=== PATIENT | male | born 1960 | race Caucasian/White ===

== ENCOUNTER 2017-03-13 17:55 | Inpatient (IN) | payer BC ==
--- NOTE | 2017-03-13 18:17 | ED ---
URI HPI - General Chief Complaint: Upper Respiratory Infection Stated Complaint: congestion, ENT Time Seen by Provider: 03/13/17 18:06 Source: patient, RN notes reviewed Mode of arrival: ambulatory Limitations: no limitations - History of Present Illness Initial Comments: 56-year-old male presents emergency Department with chief complaint of cough and cold-like symptoms over the last few weeks. Patient was seen in my expressed one week ago was given a Z-[place] aberrational course of steroids. Patient states also on Flonase and Zyrtec. Patient states he does not feel that is improved. Patient has a history of COPD continues to smoke and has been doing updraft treatments at home. Patient denies any fever, chills, night sweats. Denies any chest pain or palpitations. Denies any nausea, vomiting diarrhea constipation. Denies any headache, dizziness, neck stiffness. - Related Data Home Medications Medication Instructions Recorded Confirmed Acetaminophen [Tylenol] 325 mg PO Q4H PRN 03/13/17 03/13/17 Cetirizine HCl [Zyrtec] 10 mg PO DAILY 03/13/17 03/13/17 Fluticasone Nasal [place] [Flonase 1 spray EA NOSTRIL BID 03/13/17 03/13/17 Nasal [place]] Gabapentin 600 mg PO TID 03/13/17 03/13/17 Naproxen Sodium [Aleve] 440 mg PO Q12HR PRN 03/13/17 03/13/17 amLODIPine [Norvasc] 5 mg PO DAILY 03/13/17 03/13/17 oxyCODONE HCL/ACETAMINOPHEN 1 tab PO TID 03/13/17 03/13/17 [Percocet 10-325 mg] Allergies Allergy/AdvReac Type Severity Reaction Status Date / Time No Known Allergies Allergy Verified 03/13/17 18:22 Review of Systems ROS Statement: Those systems with pertinent positive or pertinent negative responses have been documented in the HPI. ROS Other: All systems not noted in ROS Statement are negative. Past Medical History Past Medical History: Hypertension History of Any Multi-Drug Resistant Organisms: None Reported Past Surgical History: Ear Surgery Past Psychological History: No Psychological Hx Reported Smoking Status: Current every day smoker Past Alcohol Use History: Occasional Past Drug Use History: None Reported General Exam Limitations: no limitations General appearance: alert, in no apparent distress Head exam: Present: atraumatic, normocephalic, normal inspection Eye exam: Present: normal appearance, PERRL, EOMI. Absent: scleral icterus, conjunctival injection, periorbital swelling ENT exam: Present: normal exam, normal oropharynx, mucous membranes moist, TM's normal bilaterally, normal external ear exam Neck exam: Present: normal inspection, full ROM. Absent: tenderness, meningismus, lymphadenopathy Respiratory exam: Present: normal lung sounds bilaterally. Absent: respiratory distress, wheezes, rales, rhonchi, stridor, chest wall tenderness Cardiovascular Exam: Present: regular rate, normal rhythm, normal heart sounds. Absent: systolic murmur, diastolic murmur, rubs, gallop, clicks GI/Abdominal exam: Present: soft, normal bowel sounds. Absent: distended, tenderness, guarding, rebound, rigid Neurological exam: Present: alert, oriented X3, CN II-XII intact Course Vital Signs 03/13/17 18:01 Temperature 98.2 F Pulse Rate 100 Respiratory 20 Rate Blood Pressure 141/78 O2 Sat by Pulse 100 Oximetry Medical Decision Making - Lab Data Result diagrams: 03/13/17 19:30 03/13/17 19:30 Lab Results 03/13/17 03/13/17 03/13/17 Range/Units 19:30 19:30 19:30 WBC 10.4 (3.8-10.6) k/uL RBC 4.88 (4.30-5.90) m/uL Hgb 15.9 (13.0-17.5) gm/dL Hct 46.6 (39.0-53.0) % MCV 95.6 (80.0-100.0) fL MCH 32.5 (25.0-35.0) pg MCHC 34.0 (31.0-37.0) g/dL RDW 13.6 (11.5-15.5) % Plt Count 441 (150-450) k/uL Neutrophils % 67 % Lymphocytes % 20 % Monocytes % 9 % Eosinophils % 1 % Basophils % 1 % Neutrophils # 7.0 (1.3-7.7) k/uL Lymphocytes # 2.1 (1.0-4.8) k/uL Monocytes # 0.9 (0-1.0) k/uL Eosinophils # 0.1 (0-0.7) k/uL Basophils # 0.1 (0-0.2) k/uL Sodium 131 L (137-145) mmol/L Potassium 4.5 (3.5-5.1) mmol/L Chloride 97 L (98-107) mmol/L Carbon Dioxide 23 (22-30) mmol/L Anion Gap 11 mmol/L BUN 11 (9-20) mg/dL Creatinine 0.80 (0.66-1.25) mg/dL Est GFR (MDRD) Af Amer >60 (>60 ml/min/1.73 sqM) Est GFR (MDRD) Non-Af >60 (>60 ml/min/1.73 sqM) Glucose 95 (74-99) mg/dL Calcium 9.6 (8.4-10.2) mg/dL Troponin I <0.012 (0.000-0.034) ng/mL 03/13/17 20:13 EKG performed at 19:42 sinus rhythm with short PA rate of 79 PA interval 110 QRS duration 82 QT/QTC 374/428 Disposition Clinical Impression: Cavitary pneumonia, Pulmonary nodule, Failure of outpatient treatment Disposition: HOME SELF-CARE Condition: Fair Referrals: Nilesh Lee MD [Primary Care Provider] - 1-2 days
--- NOTE | 2017-03-13 18:48 | XR ---
EXAMINATION TYPE: XR chest 2V DATE OF EXAM: 03/13/2017 COMPARISON: NONE HISTORY: Cough and congestion TECHNIQUE: Frontal and lateral views of the chest are obtained. FINDINGS: Heart and mediastinum are normal. There is a 2 cm irregular infiltrate in the left upper l obe. There is a faint 8 mm nodular density in the right upper lobe. There is no pleural effusion. Bon y thorax is intact. IMPRESSION: There is a 2 cm irregular infiltrate in the posterior segment of the left upper lobe. Ri ght upper lobe nodule. Comparison with old exams would be helpful. Normal heart.
[2017-03-13] MEDS ORDERED: RX INFO: IV CONTRAST WAS GIVEN 1 EACH MISC MISCELLANE PRN (18:51)
[2017-03-13] MEDS ORDERED: SODIUM CHLORIDE 0.9% 500 ML IV ONE (18:52)
[2017-03-13 19:53] LABS: Basophils # (A) 0.1 k/uL (0-0.2); Basophils % (A) 1 %; CH 33.6; CHCM 35.3; Eosinophils # (A) 0.1 k/uL (0-0.7); Eosinophils % (A) 1 %; HCT 46.6 % (39.0-53.0); HDW 2.55; HGB 15.9 gm/dL (13.0-17.5); Luc # (Auto) 0.26; Luc % (Auto) 3; Lymphocytes # (A) 2.1 k/uL (1.0-4.8); Lymphocytes % (A) 20 %; MCH 32.5 pg (25.0-35.0); MCV 95.6 fL (80.0-100.0); Mean Platelet Volume 6.6; Monocytes # (A) 0.9 k/uL (0-1.0); Monocytes % (A) 9 %; Neutrophils % (A) 67 %; RBC 4.88 m/uL (4.30-5.90); RDW 13.6 % (11.5-15.5); WBC 10.4 k/uL (3.8-10.6); WBC (Perox) 9.85
[2017-03-13 20:04] LABS: Anion Gap 11 mmol/L; Blood Urea Nitrogen 11 mg/dL (9-20); Calcium 9.6 mg/dL (8.4-10.2); Carbon Dioxide 23 mmol/L (22-30); Chloride 97 mmol/L (98-107); Glucose 95 mg/dL (74-99); Non-African American GFR(MDRD) >60 (>60 ml/min/1.73 sqM); Potassium 4.5 mmol/L (3.5-5.1); Sodium 131 mmol/L (137-145)
--- NOTE | 2017-03-13 20:19 | CT ---
EXAMINATION TYPE: CT chest angio for PE DATE OF EXAM: 03/13/2017 COMPARISON: NONE HISTORY: Productive cough and chest congestion x [address] DLP: 176.30 mGycm Automated exposure control for dose reduction was used. CONTRAST: CT Chest for pulmonary embolism performed with with IV Contrast, patient injected with 82 mL of Omnip aque 350. There are 3-D post processed images. FINDINGS: There is a 2 cm cavitating infiltrate in the left upper lobe posteriorly. There is a 1 cm nodular sof t tissue density in the right upper lobe. There is mild pulmonary hyperinflation. There is no pleural effusion. Heart size is normal. There are no hilar masses. Ascending aorta measures 3.7 cm. There is no evidenc e dissection. There are no filling defects in the pulmonary arteries. There is no mediastinal adenopa thy. There are spondylotic changes in the thoracic spine. Thoracic aorta is atheromatous.. IMPRESSION: No evidence of pulmonary embolism. Mild ectasia of the ascending aorta that measures 3.7 cm. No evide nce of dissection. Left upper lobe cavitating infiltrate. Right upper lobe nodule. These findings could relate to inflam matory disease. The possibility of necrotic tumor cannot be excluded. COPD.
[2017-03-13] MEDS ORDERED: LEVOFLOXACIN 750MG-D5W PMX 750 MG in DEXTROSE/WATER 1 150ML.BAG IVPB STA (20:30)
[2017-03-13] MEDS ORDERED: PIPERACILLIN-TAZOBACTAM 3.375 GM in DEXTROSE/WATER 1 50ML.BAG IVPB STA (20:32)
[2017-03-13] MEDS ORDERED: PNEUMONIA PROTOCOL UTILIZED 1 EACH MISC PO PRN (20:32)
[2017-03-13 22:33] VITALS: BMI 18.1
[2017-03-13] MEDS: GABAPENTIN 300 MG CAP PO SCH (22:49)
[2017-03-13] MEDS: oxyCODONE-APAP 10-325MG 1 EACH TAB PO SCH (22:49)
[2017-03-13] MEDS: PIPERACILLIN-TAZOBACTAM 3.375 GM in DEXTROSE/WATER 1 50ML.BAG IVPB SCH (22:50)
--- NOTE | 2017-03-14 08:11 | XR ---
EXAMINATION TYPE: XR chest 2V DATE OF EXAM: 03/14/2017 COMPARISON: 03/13/2017, CTA 03/13/2017 INDICATION: Pneumonia TECHNIQUE: Frontal and lateral views of the chest are obtained. FINDINGS: The heart size is normal. The pulmonary vasculature is normal. There is a 1.4 cm nodule left upper lobe. This appears more focal in prior. There is a 0.8 cm nodule in the right upper lobe. Follow-up is recommended. These areas are evident on the CTA chest 7 IMPRESSION: 1. Upper lobe nodules.
[2017-03-14] MEDS ORDERED: ACETAMINOPHEN TAB 325 MG TAB PO PRN (08:36)
[2017-03-14] MEDS ORDERED: LORATADINE 10 MG TAB PO SCH (09:00)
[2017-03-14] MEDS: oxyCODONE-APAP 10-325MG 1 EACH TAB PO SCH ×3 (09:07→21:50)
[2017-03-14] MEDS: amLODIPine 5 MG TAB PO SCH (09:08)
[2017-03-14] MEDS: NICOTINE 21MG/24HR PATCH TRANSDERM SCH (09:08)
[2017-03-14] MEDS: GABAPENTIN 300 MG CAP PO SCH ×3 (09:08→21:51)
[2017-03-14] MEDS: ENOXAPARIN 40 MG/0.4 ML SYRINGE SQ SCH (09:08)
[2017-03-14] MEDS: FLUTICASONE 50MCG/SPRAY NASAL 16GM EA NOSTRIL SCH ×2 (12:10→20:27)
[2017-03-14] MEDS: PIPERACILLIN-TAZOBACTAM 3.375 GM in DEXTROSE/WATER 1 50ML.BAG IVPB SCH ×2 (16:10→23:42)
--- NOTE | 2017-03-14 17:21 | P.HPIM ---
History of Present Illness H&P Date: 03/14/17 Chief Complaint: Short of breath, cough History of presenting complaint: This is a pleasant 56-year-old patient of Dr. figueroa. Has a known history of COPD. Continue to smoke. Does take Neurontin for chronic shoulder and lower back pain for this problems. Patient's been having sinus drainage, tired and rundown, cough, sputum production, short of breath and wheezing rundown going on for some time. Cannot breathe feeling tired computed unknown. Patient initially went to [facility] then came down to the ER. Appetite is gone down. 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 EYES: Pupils equal. Conjunctiva normal. HEENT: External appearance of nose and ears normal, oral cavity grossly normal. NECK: JVD not raised; masses not palpable. HEART: First and second heart sounds are normal; no edema. LUNGS: Respiratory rate increased, decreased breath sounds prolonged expiration and wheezing,. ABDOMEN: Soft, nontender, liver spleen not palpable, no masses palpable. LYMPHATICS: No lymph nodes palpable in the axilla and neck. PSYCH: Alert and oriented x3; mood and affect anxious appearingl. NEUROLOGICAL: Cranial nerves grossly intact; no facial asymmetry, power and sensation grossly intact. Investigations: White count 10.4, hemoglobin 15.9, sodium 131, potassium 4.5, BUN 11, creatinine 0.8 CT chest-left upper lobe cavitating infiltrate, right upper lobe nodule Assessment: -Left upper lobe cavitary lesion strongly suspicious for malignancy, of course, pneumonia remains in the differential. On April completed antibiotic course to see if there is any change. Nevertheless patient will require a bronchoscopy. -Acute COPD exacerbation and a current smoker -Chronic nicotine dependence. In a smoker -Hyponatremia, suspect hypoosmolar -Chronic shoulder and lower back pain from herniated disc Plan: Patient to be started on nebulized bronchodilators, nebulized steroids, and for sinuses we'll put the patient on Claritin-D. Dr. Melgoza was consulted. Patient will probably need a bronchoscopy down the road. We'll add a nicotine patch. Past Medical History Past Medical History: Hypertension History of Any Multi-Drug Resistant Organisms: None Reported Past Surgical History: Ear Surgery Past Psychological History: No Psychological Hx Reported Smoking Status: Current every day smoker Past Alcohol Use History: Occasional Past Drug Use History: None Reported Medications and Allergies Home Medications Medication Instructions Recorded Confirmed Type Acetaminophen [Tylenol] 325 mg PO Q4H PRN 03/13/17 03/13/17 History Cetirizine HCl [Zyrtec] 10 mg PO DAILY 03/13/17 03/13/17 History Fluticasone Nasal [place] [Flonase 1 spray EA NOSTRIL BID 03/13/17 03/13/17 History Nasal [place]] Gabapentin 600 mg PO TID 03/13/17 03/13/17 History Naproxen Sodium [Aleve] 440 mg PO Q12HR PRN 03/13/17 03/13/17 History amLODIPine [Norvasc] 5 mg PO DAILY 03/13/17 03/13/17 History oxyCODONE HCL/ACETAMINOPHEN 1 tab PO TID 03/13/17 03/13/17 History [Percocet 10-325 mg] Allergies Allergy/AdvReac Type Severity Reaction Status Date / Time No Known Allergies Allergy Verified 03/13/17 18:22 Results CBC & Chem 7: 03/13/17 19:30 03/13/17 19:30
[2017-03-14] MEDS: IPRATROPIUM-ALBUTEROL 3 ML NEB INHALATION SCH ×2 (17:43→20:30)
--- NOTE | 2017-03-14 19:27 | P.CNPUL ---
History of Present Illness Consult date: 03/14/17 Reason for consult: dyspnea, abnormal CXR/CT History of present illness: A 56-year-old male patient, a chronic smoker with known history of COPD whereas been followed up by Dr. srivastava on an outpatient basis. This patient has been having difficulty breathing for the past week or so. He had cough and congestion and increased dyspnea wheezing. He was feeling rundown. He was having cold chills and there is no documented fevers. No hemoptysis. No pleurisy. No previous exposure to TB. No personal history of positive PPD. No 70 connected tissue disease. No history of hematuria. No history of any staphylococcal infections. No history of any gram-negative infections. The patient drinks alcohol around 6 beers on a daily basis and he smokes one pack of cigarettes a day. He has been utilizing certain inhalers that was given to him by his primary care physician. He decided to come into the hospital for the above-mentioned complaints and he was given a CT angios the chest and it showed a 2 cm cavitating infiltrate in left upper lobe and another 1 cm nodular soft tissue density in the right upper lobe. There was also evidence of mild pulmonary hypertension no mediastinal lymphadenopathy. Review of Systems Constitutional: Reports fatigue, Reports weakness Eyes: denies blurred vision, denies bulging eye, denies decreased vision Ears: deny: decreased hearing, ear discharge, earache Ears, nose, mouth and throat: Denies headache, Denies sore throat Cardiovascular: Reports decreased exercise tolerance, Reports dyspnea on exertion, Reports shortness of breath Respiratory: Reports cough, Reports dyspnea Gastrointestinal: Denies abdominal pain, Denies diarrhea, Denies nausea, Denies vomiting Musculoskeletal: Denies myalgias Musculoskeletal: absent: ankle pain, ankle stiffness, ankle swelling Integumentary: Denies pruritus, Denies rash Neurological: Denies numbness, Denies weakness Psychiatric: Denies anxiety, Denies depression Endocrine: Denies fatigue, Denies weight change Past Medical History Past Medical History: Hypertension Additional Past Medical History / Comment(s): COPD, degenerative arthritis, alcoholism History of Any Multi-Drug Resistant Organisms: None Reported Past Surgical History: Ear Surgery Past Psychological History: No Psychological Hx Reported Smoking Status: Current every day smoker Past Alcohol Use History: Occasional Past Drug Use History: None Reported Medications and Allergies Home Medications Medication Instructions Recorded Confirmed Type Acetaminophen [Tylenol] 325 mg PO Q4H PRN 08/31/17 08/31/17 History Cetirizine HCl [Zyrtec] 10 mg PO DAILY 03/13/17 03/13/17 History Fluticasone Nasal [place] [Flonase 1 spray EA NOSTRIL BID 03/13/17 03/13/17 History Nasal [place]] Gabapentin 600 mg PO TID 03/13/17 03/13/17 History Naproxen Sodium [Aleve] 440 mg PO Q12HR PRN 03/13/17 03/13/17 History amLODIPine [Norvasc] 5 mg PO DAILY 03/13/17 03/13/17 History oxyCODONE HCL/ACETAMINOPHEN 1 tab PO TID 03/13/17 03/13/17 History [Percocet 10-325 mg] Allergies Allergy/AdvReac Type Severity Reaction Status Date / Time No Known Allergies Allergy Verified 03/13/17 18:22 Physical Exam Vitals: Vital Signs Temp Pulse Pulse Resp BP BP Pulse Ox 03/14/17 15:00 98.2 F 97 18 111/72 96 03/14/17 07:00 98.1 F 83 16 136/78 98 03/13/17 22:10 97.7 F 90 16 140/82 100 03/13/17 21:49 98 F 85 16 156/90 100 03/13/17 21:03 98.7 F 82 16 156/86 100 Intake and Output 03/14/17 03/14/17 03/14/17 06:59 14:59 22:59 Other: Voiding Method Toilet Toilet # Voids 2 3 # Bowel Movements 1 Weight 54 kg Patient Weight 03/15/17 06:59 Weight 54 kg The patient appeared well nourished and normally developed. Vital signs as documented. Head exam is unremarkable. No scleral icterus or corneal arcus noted. Neck is without jugular venous distension, thyromegaly, or carotid bruits. Carotid upstrokes are brisk bilaterally. Lungs are diminished breath sounds bilaterally along with some few scattered external wheeze. Cardiac exam reveals the PMI to be normally sized and situated. Rhythm is regular. First and second heart sounds normal. No murmurs, rubs or gallops. Abdominal exam reveals normal bowel sounds, no masses, no organomegaly and no aortic enlargement. Extremities are nonedematous and both femoral and pedal pulses are normal. Results - Laboratory Findings CBC and BMP: 03/13/17 19:30 03/13/17 19:30 Abnormal lab findings: Abnormal Labs 03/13/17 19:30 Sodium 131 L Chloride 97 L - Diagnostic Findings Chest x-ray: image reviewed CT scan - chest: image reviewed Assessment and Plan Plan: Assessment 1 acute COPD exacerbation with secondary shortness of breath 2 abnormal CAT scan of the chest with cavitating left upper lobe pulmonary infiltrate and another nodular density in the right upper lobe. Rule out pneumonia, possibly gram-negative pneumonia and the patient was been drinking alcohol excessively, possibly alcoholic. No history of immunosuppression. Staphylococcal pneumonia is possible although less likely. Less likely possibilities of fungal, connected disease related or mycobacterial infections. Malignancy cannot be completely ruled out especially squamous cell carcinoma that can typically cavitate 3 smoker 4 alcohol drinker possibly alcoholic Plan Continue current antibiotic coverage. The patient be given Levaquin as an empiric antibiotic coverage in combination with Zosyn. Sputum Gram stain and culture. DuoNeb nebulized treatments around the clock. IV Solu-Medrol. Anticipate improvement and COPD exacerbation. Outpatient follow-up on the abnormal CAT scan findings. Very crucial for this patient to have a follow-up CAT scan of the chest into the 3 months time. Any persistent abnormalities with require biopsy to rule out malignancy. He was made aware of this. We'll continue to follow. Smoking cessation counseling was done.
[2017-03-14] MEDS: LORATADINE-PSEUDOEPH 5-120 MG 1 EACH TAB.ER.12H PO SCH (20:27)
[2017-03-14] MEDS: methylPREDNISolone SOD SUCCI 125 MG/2 ML VIAL IV SCH ×2 (20:29→23:37)
[2017-03-14] MEDS: BUDESONIDE 1 MG/2 ML NEBU INHALATION SCH (20:30)
[2017-03-14] MEDS ORDERED: LEVOFLOXACIN 750MG-D5W PMX 750 MG in DEXTROSE/WATER 1 150ML.BAG IVPB SCH (21:00)
[2017-03-15] MEDS: methylPREDNISolone SOD SUCCI 125 MG/2 ML VIAL IV SCH ×3 (06:21→18:26)
[2017-03-15] MEDS: BUDESONIDE 1 MG/2 ML NEBU INHALATION SCH ×2 (07:22→19:40)
[2017-03-15] MEDS: IPRATROPIUM-ALBUTEROL 3 ML NEB INHALATION SCH ×4 (07:22→19:40)
[2017-03-15] MEDS: PIPERACILLIN-TAZOBACTAM 3.375 GM in DEXTROSE/WATER 1 50ML.BAG IVPB SCH ×2 (07:58→15:49)
[2017-03-15] MEDS: oxyCODONE-APAP 10-325MG 1 EACH TAB PO SCH (07:58)
[2017-03-15] MEDS: GABAPENTIN 300 MG CAP PO SCH ×3 (07:59→21:50)
[2017-03-15] MEDS: ENOXAPARIN 40 MG/0.4 ML SYRINGE SQ SCH (07:59)
[2017-03-15] MEDS: LORATADINE-PSEUDOEPH 5-120 MG 1 EACH TAB.ER.12H PO SCH ×2 (07:59→21:50)
[2017-03-15] MEDS: amLODIPine 5 MG TAB PO SCH (07:59)
[2017-03-15] MEDS: NICOTINE 21MG/24HR PATCH TRANSDERM SCH (07:59)
[2017-03-15] MEDS: FLUTICASONE 50MCG/SPRAY NASAL 16GM EA NOSTRIL SCH ×2 (08:00→21:49)
--- NOTE | 2017-03-15 13:19 | P.PN ---
Subjective A 56-year-old male patient, a chronic smoker with known history of COPD whereas been followed up by Dr. srivastava on an outpatient basis. This patient has been having difficulty breathing for the past week or so. He had cough and congestion and increased dyspnea wheezing. He was feeling rundown. He was having cold chills and there is no documented fevers. No hemoptysis. No pleurisy. No previous exposure to TB. No personal history of positive PPD. No 70 connected tissue disease. No history of hematuria. No history of any staphylococcal infections. No history of any gram-negative infections. The patient drinks alcohol around 6 beers on a daily basis and he smokes one pack of cigarettes a day. He has been utilizing certain inhalers that was given to him by his primary care physician. He decided to come into the hospital for the above-mentioned complaints and he was given a CT angios the chest and it showed a 2 cm cavitating infiltrate in left upper lobe and another 1 cm nodular soft tissue density in the right upper lobe. There was also evidence of mild pulmonary hypertension no mediastinal lymphadenopathy. The patient is seen again today 03/15/2017 in follow-up on the regular medical floor. He is awake and alert in no acute distress. He is breathing slightly better today as compared to yesterday but not quite back to his baseline. He is still dyspneic on minimal exertion. Still wheezing. He is maintaining good O2 saturations in the upper 90s on room air. He's been afebrile. Sputum and blood cultures are pending. He is covered with Zosyn and Levaquin. Objective - Vital Signs Vital signs: Vital Signs Temp 96.9 F L 03/15/17 07:00 Pulse 92 03/15/17 11:43 Resp 18 03/15/17 08:00 BP 126/81 03/15/17 07:00 Pulse Ox 98 03/15/17 07:00 Intake & Output 03/14/17 03/15/17 03/15/17 18:59 06:59 18:59 Weight 54 kg Other: Voiding Method Toilet Toilet # Voids 3 2 1 # Bowel Movements 1 - Exam The patient appeared well nourished and normally developed. Vital signs as documented. Head exam is unremarkable. No scleral icterus or corneal arcus noted. Neck is without jugular venous distension, thyromegaly, or carotid bruits. Carotid upstrokes are brisk bilaterally. Lungs are diminished breath sounds bilaterally along with some few scattered external wheeze. Cardiac exam reveals the PMI to be normally sized and situated. Rhythm is regular. First and second heart sounds normal. No murmurs, rubs or gallops. Abdominal exam reveals normal bowel sounds, no masses, no organomegaly and no aortic enlargement. Extremities are nonedematous and both femoral and pedal pulses are normal. - Labs CBC & Chem 7: 03/13/17 19:30 03/13/17 19:30 Labs: Abnormal Lab Results - Last 24 Hours (Table) 03/15/17 Range/Units 07:20 Osmolality 277 L (280-301) mosm/kg Microbiology - Last 24 Hours (Table) 03/14/17 12:20 Gram Stain - Preliminary Sputum 03/13/17 21:02 Blood Culture - Preliminary Blood No Growth after 24 hours Assessment and Plan Plan: Assessment 1 acute COPD exacerbation with secondary shortness of breath 2 abnormal CAT scan of the chest with cavitating left upper lobe pulmonary infiltrate and another nodular density in the right upper lobe. Rule out pneumonia, possibly gram-negative pneumonia and the patient was been drinking alcohol excessively, possibly alcoholic. No history of immunosuppression. Staphylococcal pneumonia is possible although less likely. Less likely possibilities of fungal, connected disease related or mycobacterial infections. Malignancy cannot be completely ruled out especially squamous cell carcinoma that can typically cavitate 3 smoker 4 alcohol drinker possibly alcoholic Plan: The patient was seen and evaluated by Dr. Melgoza. We'll continue with his current medications including antibiotics in the form of Zosyn and Levaquin. Continue with bronchodilators and IV Solu-Medrol. He is educated regarding the importance of complete smoking cessation. He is again educated regarding the importance of follow-up computed tomography scan in 3 months time in the outpatient setting. Hopefully we are just dealing with pneumonia versus malignancy. The patient verbalizes understanding. We'll continue to follow.
[2017-03-15] MEDS: oxyCODONE-APAP 10-325MG 1 EACH TAB PO PRN ×2 (15:48→21:50)
--- NOTE | 2017-03-15 16:20 | P.PN ---
<Sarah Huston - Last Filed: 03/15/17 16:21> Progress Note - Text DATE OF SERVICE: 03/15/2017 PRESENTING COMPLAINT: Short of breath cough HISTORY OF PRESENT ILLNESS: This is a 56-year-old male has a history of COPD and smoking. Sinus drainage feeling tired and rundown cough sputum production and short of breath with wheezing for quite a while. Diagnostics revealed left upper lobe cavitary lesion strongly suspicious for malignancy along with pneumonia may need bronchoscopy. INTERVAL HISTORY: 03/15/2017: Patient sitting up on the bedside, no acute distress noted. Appears comfortable no trouble breathing, has a strong productive cough. Feeling Better than he did when he was admitted. Breathing is easier appetites improving eating 50-75% of his meals, moving his bowels. Ambulatory within the room and [address]. Pulmonology is seeing the patient. REVIEW OF SYSTEMS: Done for constitutional ,cardiovascular, GI, pulmonary with relevant findings as above. CURRENT MEDICATIONS DuoNeb's, Norvasc, Pulmicort, Neurontin, Levaquin, loratidine, Solu-Medrol, nicotine patch, Percocet, Zosyn. PHYSICAL EXAM VITAL SIGNS: Temperature 97.0 pulse 94, respiratory rate 16, blood pressure 116/72 oxygen saturation a 6% on room air. GENERAL APPEARANCE: . Sitting in bed, somewhat anxious appearing. EYES: Pupils equal. Conjunctiva normal. NECK: JVD not raised. Mass not palpable. RESPIRATORY: Respiratory effort increased. Decreased breath sounds prolonged expiration and wheezing. CARDIOVASCULAR: First and second sounds normal. No edema. ABDOMEN: Soft. Liver and spleen not palpable. No tenderness. No mass palpable. PSYCHIATRY: Alert and oriented x3. Mood and affect somewhat anxious appearing. INVESTIGATIONS: None new ASSESSMENT: -Left upper lobe cavitary lesion strongly suspicious for malignancy, of course pneumonia remains in the differential. In the February completed antibiotics to see if there is any change, nevertheless patient will require bronchoscopy. -Acute COPD exacerbation in a current smoker. -Chronic nicotine dependence. In a smoker -Hyponatremia, suspect hypoosmolar -Chronic shoulder and low back pain from herniated disc. PLAN: Started on IV antibiotics of Zosyn and Levaquin, IV steroids, nebulized bronchodilators, nebulized steroids will be continued. Patient educated on the necessity of smoking cessation as well as can continue to follow up on his computed tomography scan in 3 months in the outpatient setting. Discharge planning in the next 24-48 hours. We will continue to follow closely. Plan of care discussed with the patient at the bedside he is in agreement. 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 Black <Drew Black - Last Filed: 03/15/17 21:53> Progress Note - Text Attending note. Date of service-03/15/2017 This patient was seen and examined by me . Discussed the patient with my nurse practitioner Ms. Huston. Admitted for COPD exacerbation and pneumonia with suspicion of underlying malignancy bruising of the shade better. Eating better. Less wheezing. On examination: Lungs-decreased breath sounds, prolonged expiration, cardio vascular first seconds are normal Investigations: Serum osmolarity 277 Assessment and plan: Acute COPD exacerbation/pneumonia/cavitary lesion suspicious for malignancy/ hyponatremia. Cut back on Solu-Medrol. continued antibiotics include Levaquin and Zosyn. care was discussed with the patient. patient probably will need outpatient bronchoscopy
[2017-03-15] MEDS ORDERED: LEVOFLOXACIN 750 MG TAB PO SCH (21:00)
[2017-03-16] MEDS: PIPERACILLIN-TAZOBACTAM 3.375 GM in DEXTROSE/WATER 1 50ML.BAG IVPB SCH ×2 (00:54→08:27)
[2017-03-16] MEDS: methylPREDNISolone SOD SUCCI 40 MG/ML 1 ML VIAL IV SCH ×2 (00:55→08:27)
[2017-03-16] MEDS: oxyCODONE-APAP 10-325MG 1 EACH TAB PO PRN ×2 (06:28→12:12)
[2017-03-16] MEDS: BUDESONIDE 1 MG/2 ML NEBU INHALATION SCH (07:24)
[2017-03-16] MEDS: IPRATROPIUM-ALBUTEROL 3 ML NEB INHALATION SCH ×2 (07:24→11:05)
[2017-03-16 07:36] VITALS: BP 125/69; RESP 18; TEMP 96.8
[2017-03-16 08:09] LABS: Basophils % (A) 0 %; CH 33.3; CHCM 33.9; Eosinophils % (A) 0 %; HCT 38.9 % (39.0-53.0); HDW 2.52; Luc # (Auto) 0.08; Luc % (Auto) 1; Lymphocytes # (A) 0.7 k/uL (1.0-4.8); Lymphocytes % (A) 5 %; MCH 32.5 pg (25.0-35.0); MCV 98.5 fL (80.0-100.0); Mean Platelet Volume 7.1; Monocytes # (A) 0.6 k/uL (0-1.0); Monocytes % (A) 4 %; Neutrophils # (A) 12.6 k/uL (1.3-7.7); Neutrophils % (A) 90 %; RBC 3.95 m/uL (4.30-5.90); RDW 13.7 % (11.5-15.5); WBC (Perox) 14.91
[2017-03-16 08:10] LABS: HGB 12.8 gm/dL (13.0-17.5)
[2017-03-16] MEDS: LORATADINE-PSEUDOEPH 5-120 MG 1 EACH TAB.ER.12H PO SCH (08:26)
[2017-03-16] MEDS: ENOXAPARIN 40 MG/0.4 ML SYRINGE SQ SCH (08:27)
[2017-03-16] MEDS: GABAPENTIN 300 MG CAP PO SCH (08:27)
[2017-03-16] MEDS: FLUTICASONE 50MCG/SPRAY NASAL 16GM EA NOSTRIL SCH (08:27)
[2017-03-16] MEDS: NICOTINE 21MG/24HR PATCH TRANSDERM SCH (08:27)
[2017-03-16] MEDS: amLODIPine 5 MG TAB PO SCH (08:27)
[2017-03-16 08:38] LABS: Anion Gap 10 mmol/L; Blood Urea Nitrogen 13 mg/dL (9-20); Calcium 9.3 mg/dL (8.4-10.2); Carbon Dioxide 25 mmol/L (22-30); Chloride 101 mmol/L (98-107); Glucose 127 mg/dL (74-99); Non-African American GFR(MDRD) >60 (>60 ml/min/1.73 sqM); Potassium 4.3 mmol/L (3.5-5.1); Sodium 136 mmol/L (137-145)
[2017-03-16 11:12] VITALS: PULSE 92
--- NOTE | 2017-03-16 16:20 | P.PN ---
Subjective A 56-year-old male patient, a chronic smoker with known history of COPD whereas been followed up by Dr. srivastava on an outpatient basis. This patient has been having difficulty breathing for the past week or so. He had cough and congestion and increased dyspnea wheezing. He was feeling rundown. He was having cold chills and there is no documented fevers. No hemoptysis. No pleurisy. No previous exposure to TB. No personal history of positive PPD. No 70 connected tissue disease. No history of hematuria. No history of any staphylococcal infections. No history of any gram-negative infections. The patient drinks alcohol around 6 beers on a daily basis and he smokes one pack of cigarettes a day. He has been utilizing certain inhalers that was given to him by his primary care physician. He decided to come into the hospital for the above-mentioned complaints and he was given a CT angios the chest and it showed a 2 cm cavitating infiltrate in left upper lobe and another 1 cm nodular soft tissue density in the right upper lobe. There was also evidence of mild pulmonary hypertension no mediastinal lymphadenopathy. The patient is seen again today 03/15/2017 in follow-up on the regular medical floor. He is awake and alert in no acute distress. He is breathing slightly better today as compared to yesterday but not quite back to his baseline. He is still dyspneic on minimal exertion. Still wheezing. He is maintaining good O2 saturations in the upper 90s on room air. He's been afebrile. Sputum and blood cultures are pending. He is covered with Zosyn and Levaquin. On 03/16/2017 the patient is doing well. He has no specific complaints. He remains on antibiotics. No fever chills or night sweats. No hemoptysis or pleurisy. The plan is to discharge this patient home to be followed up on outpatient basis regarding the cavitary pulmonary infiltrates in his left upper lobe. Objective - Vital Signs Vital signs: Vital Signs Temp 96.8 F L 03/16/17 07:00 Pulse 92 03/16/17 11:12 Resp 18 03/16/17 08:00 BP 125/69 03/16/17 07:00 Pulse Ox 98 03/16/17 07:00 Intake & Output 03/15/17 03/16/17 03/16/17 18:59 06:59 18:59 Other: # Voids 2 3 1 # Bowel Movements 1 - Exam The patient appeared well nourished and normally developed. Vital signs as documented. Head exam is unremarkable. No scleral icterus or corneal arcus noted. Neck is without jugular venous distension, thyromegaly, or carotid bruits. Carotid upstrokes are brisk bilaterally. Lungs are minutes breath on lung base bilaterally along with some few scattered expiratory wheezes.. Cardiac exam reveals the PMI to be normally sized and situated. Rhythm is regular. First and second heart sounds normal. No murmurs, rubs or gallops. Abdominal exam reveals normal bowel sounds, no masses, no organomegaly and no aortic enlargement. Extremities are nonedematous and both femoral and pedal pulses are normal. - Labs CBC & Chem 7: 03/16/17 07:40 03/16/17 07:40 Labs: Abnormal Lab Results - Last 24 Hours (Table) 03/16/17 03/16/17 Range/Units 07:40 07:40 WBC 14.0 H (3.8-10.6) k/uL RBC 3.95 L (4.30-5.90) m/uL Hgb 12.8 L D (13.0-17.5) gm/dL Hct 38.9 L (39.0-53.0) % Neutrophils # 12.6 H (1.3-7.7) k/uL Lymphocytes # 0.7 L (1.0-4.8) k/uL Sodium 136 L (137-145) mmol/L Creatinine 0.63 L (0.66-1.25) mg/dL Glucose 127 H (74-99) mg/dL Microbiology - Last 24 Hours (Table) 03/14/17 12:20 Gram Stain - Final Sputum Sputum Culture - Final 03/13/17 21:02 Blood Culture - Preliminary Blood No Growth after 48 hours Assessment and Plan Plan: 1 acute COPD exacerbation with secondary shortness of breath, improved 2 abnormal CAT scan of the chest with cavitating left upper lobe pulmonary infiltrate and another nodular density in the right upper lobe. Rule out pneumonia, possibly gram-negative pneumonia and the patient was been drinking alcohol excessively, possibly alcoholic. No history of immunosuppression. Staphylococcal pneumonia is possible although less likely. Less likely possibilities of fungal, connected disease related or mycobacterial infections. Malignancy cannot be completely ruled out especially squamous cell carcinoma that can typically cavitate 3 smoker 4 alcohol drinker possibly alcoholic Plan The patient will be discharged home on oral Augmentin. Prednisone burst taper. Follow up on outpatient basis for repeat chest x-ray. Bronchoscopy if no improvement in the cavitating left upper lobe pulmonary infiltrate. Contact me back if there is any worsening. Smoking cessation counseling was done. Agree on discharge.
--- NOTE | 2017-03-16 18:43 | P.DS ---
Providers Date of admission: 03/13/17 21:16 Expected date of discharge: 03/16/17 Attending physician: Drew Black Consults: 03/13/17 21:23 Consult Physician Stat Consulting Provider: Manisha Melgoza Consult Reason/Comments: Cavitating pneumonia Do you want consulting provider notified?: Yes Primary care physician: Nilesh Lee Hospital Course: Final diagnoses: -Possible pneumonia suspected gram-negative organism manifesting as a cavitating lesion -Rule out malignancy as an outpatient may require a bronchoscopy. -Acute COPD exacerbation in a current smoker. -Chronic nicotine dependence. In a smoker -Hyponatremia, suspect hypoosmolar -Chronic shoulder and low back pain from herniated disc. Hospital course: This patient with a long-standing smoking presented with cough impression sort of breath and wheezing felt a severe pneumonia and COPD exacerbation. Computed tomography scan chest showed a cavitating pneumonia. Patient will need a bronchoscopy as an outpatient to rule out underlying malignancy. Meantime patient is improving. The time of discharge symptoms are greatly improved. Up and about in the hallway. He came to go home. Seen by Dr. Melgoza from pulmonary okayed to be discharge. Sputum and blood cultures were negative. I discussed today with Dr. Melgoza. Also discussed with the patient. Patient counseled against smoking. Discharge planning more than 35 minutes. On examination: Lungs decreased breath sounds-prolonged expiration Patient Condition at Discharge: Fair Plan - Discharge Summary New Discharge Prescriptions: New Albuterol Inhaler [Ventolin Hfa Inhaler] 1 - 2 puff INHALATION Q6HR PRN #1 inhaler PRN Reason: Wheezing Amoxicillin/Potassium Clav [Augmentin 875-125 Tablet] 1 tab PO Q12HR #14 tab Budesonide [Pulmicort Flexhaler] 2 puff INHALATION BID #1 inhaler Ipratropium [place] [Atrovent Hfa] 2 puff INHALATION QID #1 inhaler Loratadine-Pseudoeph 5-120 mg [Claritin-D 12 Hour] 1 each PO Q12HR #14 tab Nicotine 21Mg/24Hr Patch [Habitrol] 1 patch TRANSDERM DAILY #14 patch predniSONE 10 mg PO DAILY #30 tab Continue Fluticasone Nasal [place] [Flonase Nasal [place]] 1 spray EA NOSTRIL BID Acetaminophen [Tylenol] 325 mg PO Q4H PRN PRN Reason: Pain oxyCODONE HCL/ACETAMINOPHEN [Percocet 10-325 mg] 1 tab PO TID amLODIPine [Norvasc] 5 mg PO DAILY Naproxen Sodium [Aleve] 440 mg PO Q12HR PRN PRN Reason: Pain Gabapentin 600 mg PO TID Discontinued Cetirizine HCl [Zyrtec] 10 mg PO DAILY Discharge Medication List Acetaminophen [Tylenol] 325 mg PO Q4H PRN 03/13/17 [History] Fluticasone Nasal [place] [Flonase Nasal [place]] 1 spray EA NOSTRIL BID 03/13/17 [ History] Gabapentin 600 mg PO TID 03/13/17 [History] Naproxen Sodium [Aleve] 440 mg PO Q12HR PRN 03/13/17 [History] amLODIPine [Norvasc] 5 mg PO DAILY 03/13/17 [History] oxyCODONE HCL/ACETAMINOPHEN [Percocet 10-325 mg] 1 tab PO TID 03/13/17 [History] Albuterol Inhaler [Ventolin Hfa Inhaler] 1 - 2 puff INHALATION Q6HR PRN #1 inhaler 03/16/17 [Rx] Amoxicillin/Potassium Clav [Augmentin 875-125 Tablet] 1 tab PO Q12HR #14 tab 09/27 [Rx] Budesonide [Pulmicort Flexhaler] 2 puff INHALATION BID #1 inhaler 03/16/17 [Rx] Ipratropium [place] [Atrovent Hfa] 2 puff INHALATION QID #1 inhaler 03/16/17 [Rx ] Loratadine-Pseudoeph 5-120 mg [Claritin-D 12 Hour] 1 each PO Q12HR #14 tab 03/16 [Rx] Nicotine 21Mg/24Hr Patch [Habitrol] 1 patch TRANSDERM DAILY #14 patch 03/16/17 [ Rx] predniSONE 10 mg PO DAILY #30 tab 03/16/17 [Rx] Follow up Appointment(s)/Referral(s): Nilesh Lee MD [Primary Care Provider] - 3 Days Manisha Melgoza MD [STAFF PHYSICIAN] - 3 Days (please call office friday to make a follow up appointment with Dr. Melgoza) Patient Instructions/Handouts: How to Stop Smoking (DC), Cigarette Smoking and Your Health (GEN), Pulmonary Nodules (DC), Pneumonia (DC) Discharge/Stand Alone Forms: Work/Release Restrictions Form Discharge Disposition: HOME SELF-CARE
== END 2017-03-16 14:38 | disposition home or self-care (01) | DRG 190 ==
LOC: EC 17:55 → 4MS4W 21:16
PROVIDERS: ADMIT Hospitalist; ATTEND Hospitalist
DX: J44.0 Chronic obstructive pulmonary disease with (acute) lower respiratory infection (principal); J15.6 Pneumonia due to other Gram-negative bacteria; I27.2 Other secondary pulmonary hypertension; E87.1 Hypo-osmolality and hyponatremia; J44.1 Chronic obstructive pulmonary disease with (acute) exacerbation; I10 Essential (primary) hypertension; F10.10 Alcohol abuse, uncomplicated; R91.1 Solitary pulmonary nodule; F17.210 Nicotine dependence, cigarettes, uncomplicated; M51.36 Other intervertebral disc degeneration, lumbar region; M25.519 Pain in unspecified shoulder; Z79.899 Other long term (current) drug therapy; Z79.891 Long term (current) use of opiate analgesic; Z71.6 Tobacco abuse counseling
CPT/HCPCS: 36415; 71020; 71275; 80048; 83930; 84484; 85025; 87040; 87070; 87205; 93005; 94640; 94760; 96365; 99285

== ENCOUNTER → 2017-04-30 | Outpatient (CLI) | payer BC ==
--- NOTE | 2017-04-30 16:09 | CT ---
EXAMINATION TYPE: CT chest w con DATE OF EXAM: 04/30/2017 COMPARISON: 03/13/2017 HISTORY: lung nodules CT DLP: 408 mGycm, Automated exposure control for dose reduction was used. CONTRAST: Performed injected with 100 mL of Omnipaque 300. TECHNIQUE: Axial images were obtained at 5 mm thick sections. Reconstructed images are reviewed on [employer] computer in the coronal plane. FINDINGS: Portion of the thyroid visualized is normal. There is a 0.8 cm nodule in the right apex. Series 4 image 10. There is a mass within the posterior left upper lung field with some spiculation. This measures 2.1 x 1.7 cm. Series 4 image 13. A tiny subtle density is in the periphery of the right midlung. Series 4 image 20. No enlarged mediastinal or hilar adenopathy is evident. The ascending aorta diameter at the level o f the main pulmonary artery is 3.9 cm. The main pulmonary artery diameter at the bifurcation is 2.5 cm. Coronary artery calcifications present. Note is made of some vascular calcification within the ao rta. Limited CT sections are obtained through the upper abdomen. Abdomen is essentially unremarkable. IMPRESSIONS: 1. 2.1 x 1.7 cm left upper lobe spiculated cavitary lesion posterior lung. 2. 0.8 cm nodule right apex. 3. Very subtle density within the periphery of the right midlung. 4. Recommend PET/CT for additional workup of suspected neoplasm.
== END | disposition home or self-care (01) ==
LOC: RADCTMAIN 15:18
PROVIDERS: ATTEND Internal Medicine Critical Care Medicine
DX: R91.1 Solitary pulmonary nodule (principal); J98.4 Other disorders of lung
CPT/HCPCS: 71260; Q9967

== ENCOUNTER → 2017-05-31 | Outpatient (CLI) | payer BC ==
--- NOTE | 2017-06-01 09:40 | PE ---
EXAMINATION TYPE: PET CT fusion skull to thigh DATE OF EXAM: 05/31/2017 COMPARISON: 04/30/2017 HISTORY: Evaluation of pulmonary nodules. TECHNIQUE: Following the intravenous administration of 15.18 mCi of F-18 FDG, whole body images are performed from the skull base to the midthigh. Images are reviewed on the computer in the coronal, a xial, and sagittal planes. Reconstructed rotating images are created on independent workstation and reviewed on the computer. A localization and attenuation correction CT is performed in conjunction with the PET scan. SCAN: First FINDINGS: SKULL BASE AND NECK: Right sublingual hypermetabolic activity may be physiologic with a maximum SUV measuring up to 2.4 cm. Direct visualization is recommended. No other hypermetabolic activity within the skull base and neck. CHEST, MEDIASTINUM, AND HILAR REGION: The previously seen left upper lobe cavitary lesion that measur ed approximately 2 cm on the exam of 03/13/2017 and measured 2.1 x 1.7 cm on the exam of 04/30/2017 ibrahim s continued to minimally decreased in size and become more consolidated centrally with only a single focus of internal air now measuring up to 1.8 x 1.8 cm. There is some retraction on the interlobar fi ssure and scarring radiating to the lateral left upper lobe. This does not demonstrate hypermetabolic activity and has the same activity is mediastinal background with a maximum SUV of 1.6. The stable r ight upper lobe pulmonary nodule measuring 6 mm has a maximum SUV of 0.5 and may be below sensitivity of PET/CT. Punctate 2 mm pulmonary nodule within the right upper lobe on series 3 image 86 is also n ot hypermetabolic. There is no evidence of mediastinal adenopathy. The largest precarinal lymph node measures 7 mm in sh ort axis and does not demonstrate hypermetabolic activity with an SUV of 1.3. ABDOMEN AND PELVIS: Background abdominal uptake within the liver measures up to 2.3. Right pelvis sub cutaneous lesion is not hypermetabolic with a maximum SUV of 0.6. OSSEOUS STRUCTURES: Focal uptake at the spinous processes of L2-L3 related to arthropathy and degener ative change with a maximum SUV of 1. C5 at L2 and 1.8 at L3 and without osseous erosions. OTHER CT: There is moderate background centrilobular emphysematous change. Heart is unenlarged. There are mild to moderate three-vessel coronary artery calcifications. No supraclavicular or axillary corinne nopathy. Moderate atheromatous changes of the thoracic aorta. The unenhanced liver, spleen, adrenal g lands, kidneys, gallbladder, and pancreas are of unremarkable morphology. No evidence of bowel obstru ction. Prostate gland is heterogenous containing central gland calcifications. Right subcutaneous flu id attenuated cystic structure measures 3.1 cm on series 3 image 223 and may relate to a subcutaneous cyst. Again this is not hypermetabolic area in no gross evidence of adenopathy within the abdomen or pelvis given the limitation of lack of intravenous contrast. Multilevel degenerative changes of the thoracolumbar and lumbosacral spine are moderate. IMPRESSION: 1. Left upper lobe nonhypermetabolic cavitary mass is minimally more confluent than the priors and sl ightly decreased in size. Therefore this is favored to represent resolving infectious etiology. Howev er given the patient is high risk with background of moderate emphysema and a right apical nodule zena veillance and/or percutaneous biopsy are recommended. 2. No hypermetabolic activity within the abdomen or pelvis. No suspicious osseous lesions. No evidenc e of adenopathy within the chest, abdomen, or pelvis. 3. Right sublingual hypermetabolic activity may be physiologic although correlation with direct visua lization is recommended.
== END | disposition home or self-care (01) ==
LOC: RADPETMAIN 07:24
PROVIDERS: ATTEND Internal Medicine Critical Care Medicine
DX: R91.8 Other nonspecific abnormal finding of lung field (principal)
CPT/HCPCS: 78815; A9552

== ENCOUNTER → 2017-08-28 | Outpatient (CLI) | payer BC ==
--- NOTE | 2017-08-28 11:48 | CT ---
EXAMINATION TYPE: CT chest w con DATE OF EXAM: 08/28/2017 COMPARISON: Prior CT chest 04/30/2017, nuclear medicine PET/CT 05/31/2017 HISTORY: Bilateral lung nodules CT DLP: 143.6 mGycm Automated exposure control for dose reduction was used. CONTRAST: CT scan of the chest is performed with IV Contrast, patient injected with 100 mL of Omnipaque 300. FINDINGS: LUNGS: The lungs are stable, nodules in the upper lobe are again identified. There is not a significa nt interval change in size. Extensive emphysematous changes are again noted. Calcified granuloma pres ent in the right lower lobe near the hemidiaphragm. Soft tissue nodule in the left upper lobe on axia l image 19 is also stable. There is no pleural effusion or pneumothorax seen. The tracheobronchial tree is patent. MEDIASTINUM: There are no greater than 1 cm hilar or mediastinal lymph nodes. No pericardial effusi on is seen. There are coronary artery calcifications. Ascending aorta measures approximately 3.8 cm. OTHER: No additional significant abnormality is seen. IMPRESSION: Findings are similar to prior exam.
== END | disposition home or self-care (01) ==
LOC: RADCTMAIN 08:57
PROVIDERS: ATTEND Thoracic Surgery (Cardiothoracic Vascular Surgery)
DX: D14.31 Benign neoplasm of right bronchus and lung (principal); D14.32 Benign neoplasm of left bronchus and lung
CPT/HCPCS: 71260; Q9967

== ENCOUNTER → 2018-03-27 | Outpatient (CLI) | payer OTHER ==
--- NOTE | 2018-03-29 11:29 | CT ---
EXAMINATION TYPE: CT chest w con DATE OF EXAM: 03/27/2018 COMPARISON: August 28, 2017 HISTORY: f/u pulmonary nodules, hx of COPD, personal tobacco use. CT DLP: 152.3 mGycm Automated exposure control for dose reduction was used. CONTRAST: CT scan of the chest is performed with IV Contrast, patient injected with 100 mL of Isovue 300. FINDINGS: LUNGS: Previously noted pulmonary nodules are unchanged. Dominant nodule left lung upper lobe measure s approximately 1.5 cm versus 1.6 cm previously. Nodule within the right upper lobe measures 6.6 mm v ersus 6.6 mm. Upper lobe emphysematous changes are redemonstrated. MEDIASTINUM: There are no greater than 1 cm hilar or mediastinal lymph nodes. No pericardial effusi on is seen. Thoracic aorta is of normal caliber. The heart is not enlarged. UPPER ABDOMEN: No significant abnormality appreciated. OTHER: No additional significant abnormality is seen. IMPRESSION: 1. Stable pulmonary nodularity and emphysematous changes.
== END ==
LOC: RADCTMAIN 18:34
PROVIDERS: ATTEND Internal Medicine Critical Care Medicine
DX: R91.8 Other nonspecific abnormal finding of lung field (principal); J43.9 Emphysema, unspecified
CPT/HCPCS: 71260; Q9967

== ENCOUNTER → 2018-06-16 | Outpatient (CLI) | payer OTHER ==
--- NOTE | 2018-06-16 15:46 | XR ---
Bilateral knees HISTORY: Knee pain 2 views of each knee submitted on a total of 4 images. Marginal spurring is present in the medial compartments, subchondral sclerosis is present in the medi al compartment on the right. Marginal spurring present in the lateral compartment of the right knee a nd also at the patellofemoral joints. There may be small knee joint effusions. Alignment is maintaine d. Vascular calcification suspected in the popliteal artery on the right. IMPRESSION: Osteoarthritis.
== END ==
LOC: RADXRMAIN 13:54
PROVIDERS: ATTEND Family Medicine
DX: M17.0 Bilateral primary osteoarthritis of knee (principal)

== ENCOUNTER → 2018-08-24 | Outpatient (CLI) | payer OTHER ==
--- NOTE | 2018-08-24 10:05 | CT ---
EXAMINATION TYPE: CT chest w con DATE OF EXAM: 08/24/2018 COMPARISON: 03/27/2018 HISTORY: nodule CT DLP: 162.7 mGycm Automated exposure control for dose reduction was used. CONTRAST: CT scan of the chest is performed with IV Contrast, patient injected with 100 mL of Isovue 300. FINDINGS: LUNGS: Irregular pulmonary nodule left upper lobe currently measures 1.1 cm versus 1.4 cm previously. Left upper lobe pulmonary nodule measures 5.1 mm versus 5 mm previously image 21. Right upper lobe n odule is unchanged at 6 mm versus 6 mm previously. Additional right upper lobe of 4.2 mm pulmonary no dule is stable image 18. Biapical scarring noted. No additional nodules seen. Hyperinflation compatib le with COPD. Focal eventration left hemidiaphragm. MEDIASTINUM: There are no greater than 1 cm hilar or mediastinal lymph nodes. No pericardial effusi on is seen. Thoracic aorta is of normal caliber. The heart is not enlarged. UPPER ABDOMEN: No significant abnormality appreciated. OTHER: No additional significant abnormality is seen. IMPRESSION: 1. Essentially stable pulmonary nodularity. Continued follow-up in 6 months advised.
== END | disposition home or self-care (01) ==
LOC: RADCTMAIN 09:10
PROVIDERS: ATTEND Thoracic Surgery (Cardiothoracic Vascular Surgery)
DX: R91.8 Other nonspecific abnormal finding of lung field (principal)
CPT/HCPCS: 71260; Q9967

== ENCOUNTER → 2019-03-29 | Outpatient (CLI) | payer OTHER ==
--- NOTE | 2019-03-29 14:51 | CT ---
EXAMINATION TYPE: CT chest w con DATE OF EXAM: 03/29/2019 COMPARISON: Chest CT August 24, 2018 and older CTs back to March 13, 2017 HISTORY: Pulmonary nodule follow up. CT DLP: 156.3 mGycm. Automated Exposure Control for Dose Reduction was Utilized. TECHNIQUE: CT scan of the thorax is performed following with IV Contrast, patient injected with 100 mL of Isovue M300. FINDINGS: LUNGS: Background mild to moderate underlying emphysematous change. Persistent stable moderate biapic al pleural/parenchymal scarring. Scar like opacity posterior left upper lobe measures 1.3 x 0.5 cm cu rrent study image 9 not significantly changed from most recent prior study, diminished in size from p rior studies where there was bronchial thickening. 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 Stable 4 to 5 mm right upper lobe nodule axial imag e 10 back to March 13, 2017 CT. Stable pleural-based 4 mm nodule anterior medial right upper lobe ax ial image 17 from most recent study. No new nodules or masses. No pleural effusion or pneumothorax. MEDIASTINUM: There are no greater than 1 cm hilar or mediastinal lymph nodes. No cardiomegaly or pe ricardial effusion is seen. Coronary artery constipation redemonstrated which is noted marked of unde rlying coronary artery disease. OTHER: [id number] multilevel spurring in the thoracic spine. IMPRESSION: Nodules and scar like opacities stable or diminished in size from March 13, 2017 presuma [place] benign or postinflammatory in etiology. Consider CT follow-up in one year's time to confirm.
== END | disposition home or self-care (01) ==
LOC: RADCTMAIN 12:39
PROVIDERS: ATTEND Internal Medicine Critical Care Medicine
DX: R91.1 Solitary pulmonary nodule (principal)
CPT/HCPCS: 71260; Q9967

== ENCOUNTER 2021-02-20 15:34 | Inpatient (IN) | payer MEDICARE, OTHER ==
--- NOTE | 2021-02-20 16:25 | XR ---
EXAMINATION TYPE: XR chest 2V DATE OF EXAM: 02/20/2021 COMPARISON: 03/14/2017, CT chest 03/29/2019 INDICATION: Coughing up blood right-sided chest pain TECHNIQUE: Frontal and lateral views of the chest are obtained. FINDINGS: The heart size is normal. The right superior mediastinum has a fullness which is new from comparison . CT chest recommended for additional evaluation. Underlying mass should be considered. The pulmonary vasculature is normal. The faint nodules at the lung apices remain present.. IMPRESSION: 1. Right superior mediastinal mass, CT chest recommended for additional evaluation
[2021-02-20] MEDS ORDERED: RX INFO: IV CONTRAST WAS GIVEN 1 EACH MISC MISCELLANE PRN (18:22)
[2021-02-20] MEDS ORDERED: HYDROmorphone 1 MG/ML 1 ML SYRINGE IVP STA (18:37)
[2021-02-20 18:52] LABS: Partial Thromboplastin Time 23.2 sec (22.0-30.0); Prothrombin Time 10.3 sec (9.0-12.0)
[2021-02-20 18:54] LABS: Basophils % (A) 0 %; Eosinophils # (A) 0.1 k/uL (0-0.7); Eosinophils % (A) 1 %; HCT 36.7 % (39.0-53.0); HGB 11.9 gm/dL (13.0-17.5); Lymphocytes # (A) 1.5 k/uL (1.0-4.8); Lymphocytes % (A) 18 %; MCH 32.5 pg (25.0-35.0); MCHC 32.4 g/dL (31.0-37.0); MCV 100.3 fL (80.0-100.0); Macrocytosis Slight; Mean Platelet Volume 7.1; Monocytes # (A) 0.5 k/uL (0-1.0); Monocytes % (A) 6 %; Neutrophils % (A) 73 %; Platelet Count 551 k/uL (150-450); RBC 3.66 m/uL (4.30-5.90); RDW 14.1 % (11.5-15.5); WBC 8.3 k/uL (3.8-10.6)
[2021-02-20 18:58] LABS: ALT 7 U/L (4-49); AST 18 U/L (17-59); African American GFR (CKD) >90 (>60 ml/min/1.73 sqM); Alkaline Phosphatase 187 U/L (38-126); Anion Gap 12 mmol/L; Blood Urea Nitrogen 9 mg/dL (9-20); Calcium 10.5 mg/dL (8.4-10.2); Carbon Dioxide 18 mmol/L (22-30); Chloride 102 mmol/L (98-107); Glucose 85 mg/dL (74-99); Non-African American GFR(CKD) >90 (>60 ml/min/1.73 sqM); Potassium 4.6 mmol/L (3.5-5.1); Sodium 132 mmol/L (137-145); Total Bilirubin 0.3 mg/dL (0.2-1.3); Total Protein 7.2 g/dL (6.3-8.2)
--- NOTE | 2021-02-20 19:24 | ED ---
General Adult HPI - General Chief complaint: Shortness of Breath Stated complaint: Coughing up Blood Source: patient Mode of arrival: ambulatory Limitations: no limitations - History of Present Illness Initial comments: Patient is a 60-year-old male presents emergency room with reported hemoptysis. States it started 3 days ago. He has had some pink tinged sputum with occasion al dark blood clots. States he has been feeling short of breath. Admits to history of pulmonary nodules which she had seen Dr. Hicks in the past for. He is supposed to be following up with him next month. States he has been having some right-sided chest pain which goes straight through to his back. No history of DVT or PE. He is not on any blood thinners. No fevers or chills. No other alleviating, precipitating factors - Related Data Home Medications Medication Instructions Recorded Confirmed Gabapentin 600 mg PO TID 03/13/17 02/20/21 amLODIPine [Norvasc] 5 mg PO HS 03/13/17 02/20/21 oxyCODONE HCL/ACETAMINOPHEN 1 tab PO QID 03/13/17 02/20/21 [Percocet 10-325 mg] ALPRAZolam [Xanax] 0.5 mg PO TID PRN 02/20/21 02/20/21 Ibuprofen [Motrin] 800 mg PO TID PRN 02/20/21 02/20/21 Allergies Allergy/AdvReac Type Severity Reaction Status Date / Time No Known Allergies Allergy Verified 02/20/21 19:58 Review of Systems ROS Statement: Those systems with pertinent positive or pertinent negative responses have been documented in the HPI. ROS Other: All systems not noted in ROS Statement are negative. Past Medical History Past Medical History: COPD, Hypertension Additional Past Medical History / Comment(s): COPD, degenerative arthritis, alcoholism History of Any Multi-Drug Resistant Organisms: None Reported Past Surgical History: Ear Surgery Past Psychological History: No Psychological Hx Reported Smoking Status: Current every day smoker Past Alcohol Use History: Occasional Past Drug Use History: None Reported General Exam Limitations: no limitations Course Vital Signs 02/20/21 02/20/21 16:01 22:22 Temperature 98.3 F Pulse Rate 77 86 Respiratory 18 18 Rate Blood Pressure 124/83 137/94 O2 Sat by Pulse 97 100 Oximetry EKG Findings - EKG Comments: EKG Findings:: EKG demonstrates a sinus rhythm with a ventricular rate of 77. VA interval 140. QRS 82. QTC 434. No acute ST segment elevations or depressions concerning for ischemic changes. Baseline artifact. Medical Decision Making - Medical Decision Making On arrival patient is placed in room 9. There are history and physical exam is performed. IV is established patient is given 1 mg of Dilaudid for pain control. Laboratory studies are conducted. Hemoglobin 11.9. Chest x-ray as demonstrating a right-sided mediastinal mass. CT of the chest is performed which demonstrates right superior mediastinal mass and associated right-sided interstitial opacities. Pulmonary nodules unchanged from previous exam. Interval development of a left 1.8 semiurgent renal nodule. No PE results are discussed the patient. Recommended admission. Spoke with Dr. Joyce who agreed to admit the patient. We'll place pulmonology on consult. - Lab Data Result diagrams: 02/20/21 18:29 02/20/21 18:29 Lab Results 02/20/21 02/20/21 02/20/21 Range/Units 18:29 18:29 18:29 WBC 8.3 (3.8-10.6) k/uL RBC 3.66 L (4.30-5.90) m/uL Hgb 11.9 L (13.0-17.5) gm/dL Hct 36.7 L (39.0-53.0) % MCV 100.3 H (80.0-100.0) fL MCH 32.5 (25.0-35.0) pg MCHC 32.4 (31.0-37.0) g/dL RDW 14.1 (11.5-15.5) % Plt Count 551 H (150-450) k/uL MPV 7.1 Neutrophils % 73 % Lymphocytes % 18 % Monocytes % 6 % Eosinophils % 1 % Basophils % 0 % Neutrophils # 6.0 (1.3-7.7) k/uL Lymphocytes # 1.5 (1.0-4.8) k/uL Monocytes # 0.5 (0-1.0) k/uL Eosinophils # 0.1 (0-0.7) k/uL Basophils # 0.0 (0-0.2) k/uL Macrocytosis Slight PT 10.3 (9.0-12.0) sec INR 1.0 (<1.2) APTT 23.2 (22.0-30.0) sec Sodium 132 L (137-145) mmol/L Potassium 4.6 (3.5-5.1) mmol/L Chloride 102 (98-107) mmol/L Carbon Dioxide 18 L (22-30) mmol/L Anion Gap 12 mmol/L BUN 9 (9-20) mg/dL Creatinine 0.86 (0.66-1.25) mg/dL Est GFR (CKD-EPI)AfAm >90 (>60 ml/min/1.73 sqM) Est GFR (CKD-EPI)NonAf >90 (>60 ml/min/1.73 sqM) Glucose 85 (74-99) mg/dL Plasma Lactic Acid Eulalio (0.7-2.0) mmol/L Calcium 10.5 H (8.4-10.2) mg/dL Total Bilirubin 0.3 (0.2-1.3) mg/dL AST 18 (17-59) U/L ALT 7 (4-49) U/L Alkaline Phosphatase 187 H (38-126) U/L Troponin I (0.000-0.034) ng/mL Total Protein 7.2 (6.3-8.2) g/dL Albumin 4.0 (3.5-5.0) g/dL 02/20/21 02/20/21 Range/Units 18:29 18:29 WBC (3.8-10.6) k/uL RBC (4.30-5.90) m/uL Hgb (13.0-17.5) gm/dL Hct (39.0-53.0) % MCV (80.0-100.0) fL MCH (25.0-35.0) pg MCHC (31.0-37.0) g/dL RDW (11.5-15.5) % Plt Count (150-450) k/uL MPV Neutrophils % % Lymphocytes % % Monocytes % % Eosinophils % % Basophils % % Neutrophils # (1.3-7.7) k/uL Lymphocytes # (1.0-4.8) k/uL Monocytes # (0-1.0) k/uL Eosinophils # (0-0.7) k/uL Basophils # (0-0.2) k/uL Macrocytosis PT (9.0-12.0) sec INR (<1.2) APTT (22.0-30.0) sec Sodium (137-145) mmol/L Potassium (3.5-5.1) mmol/L Chloride (98-107) mmol/L Carbon Dioxide (22-30) mmol/L Anion Gap mmol/L BUN (9-20) mg/dL Creatinine (0.66-1.25) mg/dL Est GFR (CKD-EPI)AfAm (>60 ml/min/1.73 sqM) Est GFR (CKD-EPI)NonAf (>60 ml/min/1.73 sqM) Glucose (74-99) mg/dL Plasma Lactic Acid Eulalio 1.6 (0.7-2.0) mmol/L Calcium (8.4-10.2) mg/dL Total Bilirubin (0.2-1.3) mg/dL AST (17-59) U/L ALT (4-49) U/L Alkaline Phosphatase (38-126) U/L Troponin I <0.012 (0.000-0.034) ng/mL Total Protein (6.3-8.2) g/dL Albumin (3.5-5.0) g/dL Disposition Clinical Impression: Hemoptysis, Mediastinal mass Disposition: ADMITTED IP TO THIS [facility] Condition: Stable Is patient prescribed a controlled substance at d/c from ED?: No Decision to Admit Reason: Admit from EC Decision Date: 02/20/21 Decision Time: 21:15
[2021-02-20] MEDS ORDERED: NALOXONE 0.4 MG/ML 1 ML VIAL IV PRN (21:15)
--- NOTE | 2021-02-20 21:55 | CT ---
EXAMINATION TYPE: CT chest angio for PE DATE OF EXAM: 02/20/2021 COMPARISON: Same-day radiograph. CT 03/29/2019. HISTORY: coughing up blood and chest pain CT DLP: 236.2 mGycm Automated exposure control for dose reduction was used. CONTRAST: CT Chest for pulmonary embolism performed with with IV Contrast, patient injected with 100 mL of Isov ue 370. FINDINGS: LUNGS: There are mild to moderate interstitial opacities in the right upper lobe. There are are 2 lef t upper lobe nodules measuring 12 mm and 6 mm. There is slight decrease of the 12 mm nodule (previous ly measured 15 mm). The other nodule is stable. There is grossly unchanged 6 mm right apical nodule. There is moderate centrilobular emphysema. No pneumothorax or pleural effusion. The airways are clear . MEDIASTINUM: There is satisfactory enhancement of the pulmonary artery and its branches, there is no CT evidence for pulmonary embolism. There is 6.4 x 5 cm right paratracheal/superior mediastinal mass . Adjacent small subcentimeter lymph nodes also seen. No pericardial effusion is seen. OTHER: Interval 1.8 cm left adrenal lesion. IMPRESSION: Right superior mediastinal mass and associated right-sided interstitial opacities. Findings are jeffery tible with malignancy and leptomeningeal spread not excluded. Pulmonary nodules, unchanged to slightly decreased compared to the prior study. Interval 1.8 cm left adrenal lesion, metastatic disease is not excluded. Emphysema. No acute PE.
[2021-02-20] MEDS: amLODIPine 5 MG TAB PO SCH (22:30)
[2021-02-20] MEDS: ALPRAZolam 0.5 MG TAB PO PRN (22:30)
[2021-02-20] MEDS: oxyCODONE-APAP 10-325MG 1 EACH TAB PO SCH (22:30)
[2021-02-20] MEDS: GABAPENTIN 300 MG CAP PO SCH (22:32)
[2021-02-21 02:36] LABS: Appearance,Urine Clear (Clear); Bilirubin,Urine Negative (Negative); Blood,Urine Negative (Negative); Color,Urine Light Yellow; Glucose,Urine (UA) Negative (Negative); Ketones,Urine Negative (Negative); Leukocyte Esterase,Urine Negative (Negative); Nitrite,Urine Negative (Negative); Protein,Urine Trace (Negative); Urobilinogen,Urine <2.0 mg/dL (<2.0)
[2021-02-21 02:37] LABS: Specific Gravity,Urine >1.050 (1.001-1.035)
[2021-02-21] MEDS ORDERED: BENZONATATE 100 MG CAP PO PRN (02:43)
[2021-02-21] MEDS ORDERED: IPRATROPIUM-ALBUTEROL 3 ML NEB INHALATION PRN (02:43)
--- NOTE | 2021-02-21 02:52 | P.HPIM ---
History of Present Illness H&P Date: 02/20/21 Chief Complaint: Hemoptysis 60-year-old male with COPD and history of heavy smoking, hypertension Patient comes in with 3 day history of hemoptysis he didn't want to come to the hospital initially wanted to follow up with his support coordinator as an outpatient however his insisted that he comes for evaluation. He does report some right-sided chest pain mild in nature 3-5 out of 10 in severity. He reports chronic coughing with whitish yellowish sputum however over the past 3 days she's been seeing streaks of blood in it he claims that his weight is fluctuating up and down. He denies any other constitutional symptoms denies any fevers chills denies any generalized fatigue or malaise. He has cut back on smoking which he used to smoke heavily he's been known to have some changes in his lungs and then having regular CAT scans for surveillance and he was always a ssured that everything looked stable however he was lost to follow-up since mid 2019 until now he had scheduled an appointment with pulmonology to be seen in the coming few weeks for follow-up. He does admit to drinking on daily basis his last drink was over 3 days ago he denies going through shakes or tremors he denies any history of withdrawal seizures or syndrome he claims that he drinks about a beer every day. Otherwise patient denies any GI bleeding denies any history of bleeding tendencies denies any history of blood clots. He denies any recent traveling denies any trauma to the chest denies any fevers or chills denies any sore throat denies any nausea vomiting or abdominal pain. In the ED blood work showed acute anemia hemoglobin 11.9 with macrocytosis, platelets 550, calcium elevated at 10.5 sodium low at 132. And some mild non- anion gap metabolic acidosis CT of the angioma the chest showed new right superior mediastinal mass with right interstitial opacities suspicious for malignancy, no acute PE, 1.8 cm left adrenal lesion Review of Systems Pertinent positives as noted in HPI. All other systems were reviewed and are negative Past Medical History Past Medical History: COPD, Hypertension Additional Past Medical History / Comment(s): COPD, degenerative arthritis, alcoholism History of Any Multi-Drug Resistant Organisms: None Reported Past Surgical History: Ear Surgery Past Psychological History: No Psychological Hx Reported Smoking Status: Current every day smoker Past Alcohol Use History: Occasional Past Drug Use History: None Reported - Past Family History Family History Unknown: (Family pancreatic cancer) Additional Family Medical History / Comment(s): Pancreatic cancer runs in the family Medications and Allergies Home Medications Medication Instructions Recorded Confirmed Type Gabapentin 600 mg PO TID 03/13/17 02/20/21 History amLODIPine [Norvasc] 5 mg PO HS 03/13/17 02/20/21 History oxyCODONE HCL/ACETAMINOPHEN 1 tab PO QID 03/13/17 02/20/21 History [Percocet 10-325 mg] ALPRAZolam [Xanax] 0.5 mg PO TID PRN 02/20/21 02/20/21 History Ibuprofen [Motrin] 800 mg PO TID PRN 02/20/21 02/20/21 History Allergies Allergy/AdvReac Type Severity Reaction Status Date / Time No Known Allergies Allergy Verified 02/20/21 19:58 Physical Exam Vitals: Vital Signs Temp Pulse Resp BP Pulse Ox 02/20/21 16:01 98.3 F 77 18 124/83 97 Intake and Output 02/20/21 02/20/21 02/20/21 06:59 14:59 22:59 Other: Weight 58.967 kg Constitutional: No acute distress, conversant, pleasant Eyes: Anicteric sclerae, moist conjunctiva, Pupils equal round reactive to light ENMT: NC/AT Oropharynx clear, no erythema, or exudates Neck: Supple, FROM, no masses, or JVD No carotid bruits No thyromegaly Lungs: Diminished breath sounds over mid to lower lung bases, prolonged expiratory phase no wheezing Clear to percussion Normal respiratory effort, no accessory muscle use Cardiovascular: Heart regular in rate and rhythm, No murmurs, gallops, or rubs No peripheral edema Abdominal: Soft Nontender, no guarding, rebound or rigidity Abdomen moving with respiration Normoactive bowel sounds No hepatomegaly, No splenomegaly No palpable mass No abdominal wall hernia noted Skin: Normal temperature, tone, texture, turgor No induration No subcutaneous nodules No rash, lesions No ulcers Extremities: No digital cyanosis No clubbing Pedal pulses intact and symmetrical Radial pulses intact and symmetrical No calf tenderness Psychiatric: Alert and oriented to person, place and time Appropriate affect fair judgement Neuro Muscles Strength 5/5 in all 4 extremities Sensation to light touch grossly present throughout Cranial nerves II-XII grossly intact No focal sensory deficits Lymphatics: no palpable cervical or supraclavicular , or inguinal lymph nodes Results CBC & Chem 7: 02/20/21 18:29 02/20/21 18:29 Labs: Abnormal Lab Results - Last 24 Hours (Table) 02/20/21 02/20/21 Range/Units 18:29 18:29 RBC 3.66 L (4.30-5.90) m/uL Hgb 11.9 L (13.0-17.5) gm/dL Hct 36.7 L (39.0-53.0) % MCV 100.3 H (80.0-100.0) fL Plt Count 551 H (150-450) k/uL Sodium 132 L (137-145) mmol/L Carbon Dioxide 18 L (22-30) mmol/L Calcium 10.5 H (8.4-10.2) mg/dL Alkaline Phosphatase 187 H (38-126) U/L Assessment and Plan Assessment: Hemoptysis Right superior mediastinal mass suspicious for malignancy Supplemental oxygen as needed Monitor hemoglobin Pulmonary consultation Oncology consultation Patient used to have serial CAT scans for surveillance due to history of heavy smoking and pulmonary changes with some nodules however he was lost to follow-up since mid 2019 Mild hypercalcemia continue to monitor this could be related to above diagnoses Hyponatremia, check urine analysis to assess for urine specific gravity in sodium Acute anemia with macrocytosis this could be in part related to chronic alcohol consumption Mild non-anion gap metabolic acidosis, follow-up for renal function Chronic conditions COPD Breathing treatments Symptomatic control with cough suppressants Hypertension Resume blood pressure meds CODE STATUS: Full code DVT prophylaxis: Mechanical Discussed with: Patient, ER, RN Anticipated length of stay more than [address]: Home A total of 75 minutes was spent on the care of this complex patient more than 50% of the time was spent in counseling and care coordination.
[2021-02-21] MEDS ORDERED: MORPHINE SULFATE 2 MG/ML SYRINGE IVP STA (04:21)
[2021-02-21 06:03] LABS: Basophils % (A) 1 %; Eosinophils # (A) 0.1 k/uL (0-0.7); Eosinophils % (A) 1 %; HCT 35.2 % (39.0-53.0); HGB 11.5 gm/dL (13.0-17.5); Lymphocytes # (A) 1.4 k/uL (1.0-4.8); Lymphocytes % (A) 21 %; MCH 32.7 pg (25.0-35.0); MCHC 32.6 g/dL (31.0-37.0); MCV 100.5 fL (80.0-100.0); Macrocytosis Slight; Monocytes # (A) 0.6 k/uL (0-1.0); Monocytes % (A) 8 %; Neutrophils # (A) 4.5 k/uL (1.3-7.7); Neutrophils % (A) 67 %; Platelet Count 464 k/uL (150-450); RDW 14.2 % (11.5-15.5); WBC 6.7 k/uL (3.8-10.6)
[2021-02-21 06:23] LABS: African American GFR (CKD) >90 (>60 ml/min/1.73 sqM); Anion Gap 8 mmol/L; Blood Urea Nitrogen 9 mg/dL (9-20); Calcium 10.1 mg/dL (8.4-10.2); Carbon Dioxide 19 mmol/L (22-30); Chloride 105 mmol/L (98-107); Glucose 97 mg/dL (74-99); Non-African American GFR(CKD) >90 (>60 ml/min/1.73 sqM); Sodium 132 mmol/L (137-145)
[2021-02-21] MEDS: oxyCODONE-APAP 10-325MG 1 EACH TAB PO SCH (08:27)
[2021-02-21] MEDS: GABAPENTIN 300 MG CAP PO SCH ×3 (08:28→21:29)
[2021-02-21] MEDS ORDERED: oxyCODONE-APAP 7.5-325MG 1 EACH TAB PO STA (11:24)
--- NOTE | 2021-02-21 13:27 | P.PN ---
Subjective Progress Note Date: 02/21/21 (delayed charting seen at 1115) Principal diagnosis: hemoptysis Patient is a 60-year-old male with a history of COPD and ongoing tobacco abuse, hypertension, and arthritis who presented to the emergency department secondary to hemoptysis. In the ER he underwent an extensive evaluation. He was found to have a slight anemia with a hemoglobin of 11.9, sodium 132, carbon dioxide 18. CT of the chest showed a right superior mediastinal mass with a right-sided interstitial opacities consistent with malignancy and possible leptomeningeal spread. A 1.8 cm left adrenal lesion was also noted. He was admitted for further monitoring. He was seen by Dr. Alvarado who recommended biopsy. He was evaluated by pulmonary in biopsy is planned for 02/22/21. Patient seen and examined at bedside. He continues to have some left-sided back pain, shortness of breath, and hemoptysis. He continues to smoke approximately 4 cigarettes daily. He follows with Dr. Melgoza an outpatient basis. Significant other at bedside and all questions answered. They're aware that this is likely cancer. General: non toxic, no distress, appears older than stated age, gaunt Derm: warm, dry Head: atraumatic, normocephalic, symmetric Eyes: EOMI, no lid lag, anicteric sclera Mouth: no lip lesion, mucus membranes moist Cardiovascular: S1S2 reg, no murmur, positive posterior tibial pulse bilateral, Lungs: Coarse breath sounds bilateral, no rhonchi, no rales , no accessory muscle use Abdominal: soft, nontender to palpation, no guarding, no appreciable organomegaly Ext: no gross muscle atrophy, no edema, no contractures Neuro: CN II-XI grossly intact, no focal neuro deficits Psych: Alert, oriented, appropriate affect Right superior mediastinal mass, hemoptysis -Plan is for bronchoscopy with biopsy on 02/22/21. Case discussed with Dr. Hill on -Oncology recommendations appreciated -We'll need close outpatient follow-up COPD without exacerbation -Continue with home bronchodilator regimen Hypertension, controlled -Continue with Norvasc -Follow blood pressures Tobacco abuse -Discussed importance of cessation Hypercalcemia, resolved DVT prophylaxis: early ambulation Discussed with: patient, nursing, family, Dr. Gonzalez Anticipated discharge: in AM Anticipated discharge place: home A total of 35 minutes was spent on the care of this complex patient more than 50% of the time was spent in counseling and care coordination. Objective - Vital Signs Vital signs: Vital Signs Temp 97.5 F L 02/21/21 07:00 Pulse 85 02/21/21 07:00 Resp 16 02/21/21 07:00 BP 133/69 02/21/21 07:00 Pulse Ox 98 02/21/21 07:00 Intake & Output 02/20/21 02/21/21 02/21/21 18:59 06:59 18:59 Intake Total 250 200 Balance 250 200 Weight 58.967 kg 58.967 kg Intake: Oral 250 200 Other: Voiding Method Toilet Toilet # Voids 2 - Labs CBC & Chem 7: 02/21/21 04:05 02/21/21 04:05 Labs: Abnormal Lab Results - Last 24 Hours (Table) 02/20/21 02/20/21 02/21/21 Range/Units 18:29 18:29 02:15 RBC 3.66 L (4.30-5.90) m/uL Hgb 11.9 L (13.0-17.5) gm/dL Hct 36.7 L (39.0-53.0) % MCV 100.3 H (80.0-100.0) fL Plt Count 551 H (150-450) k/uL Sodium 132 L (137-145) mmol/L Carbon Dioxide 18 L (22-30) mmol/L Calcium 10.5 H (8.4-10.2) mg/dL Alkaline Phosphatase 187 H (38-126) U/L Ur Specific [place] >1.050 H (1.001-1.035) Urine Protein Trace H (Negative) 02/21/21 02/21/21 Range/Units 04:05 04:05 RBC 3.50 L (4.30-5.90) m/uL Hgb 11.5 L (13.0-17.5) gm/dL Hct 35.2 L (39.0-53.0) % MCV 100.5 H (80.0-100.0) fL Plt Count 464 H (150-450) k/uL Sodium 132 L (137-145) mmol/L Carbon Dioxide 19 L (22-30) mmol/L Calcium (8.4-10.2) mg/dL Alkaline Phosphatase (38-126) U/L Ur Specific [place] (1.001-1.035) Urine Protein (Negative)
--- NOTE | 2021-02-21 13:58 | P.CNPUL ---
History of Present Illness Consult date: 02/21/21 Requesting physician: Shin Martins Reason for consult: dyspnea, cough, COPD, lung mass, abnormal CXR/CT Chief complaint: Hemoptysis, and chronic cough. History of present illness: Pulmonary and critical care consultation dated 02/21/2021. 60-year-old male, seen in room 615, who was admitted with a diagnosis of hemoptysis and chronic cough. Apparently both started about 3 or 4 days ago. Some of blood is pink and frothy, and some of the blood is more dark. The patient has been followed by my partner for a number of months and years, for some abnormal pulmonary nodules. The most recent computed tomography scan showed that the nodules compared to a prior computed tomography scan, had IC gone smaller in size. This is a 2019 computed tomography scan compared to one done in 2017. Unfortunately, the patient has been smoking for 40 years or so. He continues to smoke. The most recent chest x-ray and CAT scan show a large right perihilar mass. I talked to the patient about possibly going home on following up with Dr. Melgoza or having a bronchoscopy here while he was hospitalized. He agrees to the latter. Anyway, we'll get him scheduled for the Patrick and biopsy tomorrow. We'll have pathology in the room to look at the specimens as we obtain them. Looking at the CAT scan, the patient has a large right perihilar mass. Probably, we can do some transtracheal and transbronchial biopsies anteriorly into the mass. White count 6.7, hemoglobin 11.5, hematocrit 35.2, platelet count 464,000. Sodium 132, potassium 4, chlorides 105, CO2 19, anion gap 8, BUN 9, creatinine 0.66. Chest x-ray and CAT scan of both reviewed. Review of Systems REVIEW OF SYSTEMS: CONSTITUTIONAL: [Negative.] NEUROLOGIC: [ Negative.] HEENT: [ Negative.] CARDIAC: [Negative.] PULMONARY: Cough, and hemoptysis. GI: [Negative.] : [Negative.] RHEUMATOLOGIC: [ Negative.] IMMUNOLOGIC: [ Negative.] ENDOCRINE: [Negative. ] DERMATOLOGIC: [Negative.] Past Medical History Past Medical History: COPD, Hypertension Additional Past Medical History / Comment(s): COPD, degenerative arthritis, alcoholism History of Any Multi-Drug Resistant Organisms: None Reported Past Surgical History: Ear Surgery Past Anesthesia/Blood Transfusion Reactions: No Reported Reaction Past Psychological History: No Psychological Hx Reported Smoking Status: Current every day smoker Past Alcohol Use History: Occasional Past Drug Use History: None Reported - Past Family History Family Additional Family Medical History / Comment(s): Pancreatic cancer runs in the family Medications and Allergies Home Medications Medication Instructions Recorded Confirmed Type Gabapentin 600 mg PO TID 03/13/17 02/20/21 History amLODIPine [Norvasc] 5 mg PO HS 03/13/17 02/20/21 History oxyCODONE HCL/ACETAMINOPHEN 1 tab PO QID 03/13/17 02/20/21 History [Percocet 10-325 mg] ALPRAZolam [Xanax] 0.5 mg PO TID PRN 02/20/21 02/20/21 History Ibuprofen [Motrin] 800 mg PO TID PRN 02/20/21 02/20/21 History Allergies Allergy/AdvReac Type Severity Reaction Status Date / Time No Known Allergies Allergy Verified 02/20/21 19:58 Physical Exam Osteopathic Statement: *. No significant issues noted on an osteopathic structural exam other than those noted in the History and Physical/Consult. Vitals: Vital Signs Temp Pulse Pulse Resp BP BP Pulse Ox 02/21/21 07:00 97.5 F L 85 16 133/69 98 02/21/21 00:48 82 16 02/21/21 00:47 97.5 F L 82 16 120/69 99 02/20/21 23:08 98.1 F 82 16 114/71 99 02/20/21 22:22 86 18 137/94 100 02/20/21 16:01 98.3 F 77 18 124/83 97 Intake and Output 02/20/21 02/21/21 02/21/21 22:59 06:59 14:59 Intake Total 250 200 Balance 250 200 Intake: Oral 250 200 Other: Voiding Method Toilet Toilet # Voids 1 2 Weight 58.967 kg No acute distress, oriented 3. Room air saturation is 98%. HEENT examination is grossly unremarkable. Neck supple. Full range of motion. No adenopathy thyromegaly or neck vein distention. Cardiovascular examination reveals regular rhythm rate. S1-S2 normal. No S3 or S4. No discernible murmur noted. Heart rate is 85 bpm. Lungs reveal clear breath sounds. Breath sounds are equal bilaterally. No adventitious lung sounds including wheezes rhonchi or crackles. Abdomen soft bowel sounds are heard. No masses or tenderness. Extremities are intact. No cyanosis clubbing or edema. Skin is without rash or lesion. Neurologic examination is brief but nonfocal. Results - Laboratory Findings CBC and BMP: 02/21/21 04:05 02/21/21 04:05 PT/INR, D-dimer PT 10.3 sec (9.0-12.0) 02/20/21 18:29 INR 1.0 (<1.2) 02/20/21 18:29 Abnormal lab findings: Abnormal Labs 02/20/21 02/20/21 02/21/21 18:29 18:29 02:15 RBC 3.66 L Hgb 11.9 L Hct 36.7 L MCV 100.3 H Plt Count 551 H Sodium 132 L Carbon Dioxide 18 L Calcium 10.5 H Alkaline Phosphatase 187 H Ur Specific [place] >1.050 H Urine Protein Trace H 02/21/21 02/21/21 04:05 04:05 RBC 3.50 L Hgb 11.5 L Hct 35.2 L MCV 100.5 H Plt Count 464 H Sodium 132 L Carbon Dioxide 19 L Calcium Alkaline Phosphatase Ur Specific [place] Urine Protein - Diagnostic Findings Chest x-ray: image reviewed CT scan - chest: image reviewed Assessment and Plan Assessment: Right perihilar/mediastinal mass, likely consistent with bronchogenic carcinoma. Hemoptysis, likely secondary to the mass noted on computed tomography scan. There may be some erosion of the mass into the distal trachea or right mainstem bronchus. History of COPD. History of hypertension. History of ongoing tobacco use with nicotine addiction. History of multiple pulmonary nodules, being followed by my partner, with most recent computed tomography scan showing the nodules to be stable or slightly decreased in size. Plan: Plan dated 02/21/2021. I gave the patient the option of either being discharged home and be followed up by my partner, or just having his bronchoscopy done tomorrow. He chooses to have the bronchoscopy done while here in the hospital. We will have pathology standing by. We will get a consent on the chart. The patient will be nothing by mouth after midnight. Additional recommendations and suggestions are forthcoming. He will need a outpatient PET scan as well. Time with Patient: Greater than 30
[2021-02-21] MEDS: IPRATROPIUM-ALBUTEROL 3 ML NEB INHALATION SCH ×2 (15:36→21:48)
[2021-02-21] MEDS: oxyCODONE-APAP 10-325MG 1 EACH TAB PO PRN (17:16)
--- NOTE | 2021-02-21 21:05 | P.CONS ---
History of Present Illness - Reason for Consult Consult date: 02/21/21 Concern of Malignancy Requesting physician: Shin Martins - History of Present Illness Mr Meek is a 60 year old male patient who we have been asked to see related to concern of metastatic malignancy.CT scan of chest revealed 6.4x5cm Right superior mediastinal mass as well as a 1.8 cm left adrenal lesion. Patient is planning to have bronchoscopy tomorrow with biopsy. He does have a history of tobacco smoking abuse, continues to smoke. Review of Systems All systems: negative Constitutional: Reports as per HPI Past Medical History Past Medical History: COPD, Hypertension Additional Past Medical History / Comment(s): COPD, degenerative arthritis, alcoholism History of Any Multi-Drug Resistant Organisms: None Reported Past Surgical History: Ear Surgery Past Anesthesia/Blood Transfusion Reactions: No Reported Reaction Past Psychological History: No Psychological Hx Reported Smoking Status: Current every day smoker Past Alcohol Use History: Occasional Past Drug Use History: None Reported - Past Family History Family Additional Family Medical History / Comment(s): Pancreatic cancer runs in the family Medications and Allergies Home Medications Medication Instructions Recorded Confirmed Type Gabapentin 600 mg PO TID 03/13/17 02/20/21 History amLODIPine [Norvasc] 5 mg PO HS 03/13/17 02/20/21 History oxyCODONE HCL/ACETAMINOPHEN 1 tab PO QID 03/13/17 02/20/21 History [Percocet 10-325 mg] ALPRAZolam [Xanax] 0.5 mg PO TID PRN 02/20/21 02/20/21 History Ibuprofen [Motrin] 800 mg PO TID PRN 02/20/21 02/20/21 History Allergies Allergy/AdvReac Type Severity Reaction Status Date / Time No Known Allergies Allergy Verified 02/20/21 19:58 Physical Exam Vitals: Vital Signs Temp Pulse Pulse Resp BP BP Pulse Ox 02/21/21 07:00 97.5 F L 85 16 133/69 98 02/21/21 00:48 82 16 02/21/21 00:47 97.5 F L 82 16 120/69 99 02/20/21 23:08 98.1 F 82 16 114/71 99 02/20/21 22:22 86 18 137/94 100 02/20/21 16:01 98.3 F 77 18 124/83 97 Intake and Output 02/20/21 02/21/21 02/21/21 22:59 06:59 14:59 Intake Total 250 200 Balance 250 200 Intake: Oral 250 200 Other: Voiding Method Toilet Toilet # Voids 1 2 Weight 58.967 kg - Constitutional General appearance: cooperative, no acute distress - EENT Eyes: EOMI ENT: hard of hearing, NA/AT - Neck Neck: normal ROM - Respiratory Respiratory: bilateral: diminished - Cardiovascular Rhythm: irregularly irregular - Gastrointestinal General gastrointestinal: soft - Integumentary Integumentary: pale - Neurologic Neurologic: CNII-XII intact - Musculoskeletal Musculoskeletal: generalized weakness, strength equal bilaterally - Psychiatric Psychiatric: A&O x's 3, appropriate affect Results CBC & Chem 7: 02/22/21 04:43 02/22/21 04:43 Labs: Abnormal Lab Results - Last 24 Hours (Table) 02/20/21 02/20/21 02/21/21 Range/Units 18:29 18:29 02:15 RBC 3.66 L (4.30-5.90) m/uL Hgb 11.9 L (13.0-17.5) gm/dL Hct 36.7 L (39.0-53.0) % MCV 100.3 H (80.0-100.0) fL Plt Count 551 H (150-450) k/uL Sodium 132 L (137-145) mmol/L Carbon Dioxide 18 L (22-30) mmol/L Calcium 10.5 H (8.4-10.2) mg/dL Alkaline Phosphatase 187 H (38-126) U/L Ur Specific [place] >1.050 H (1.001-1.035) Urine Protein Trace H (Negative) 02/21/21 02/21/21 Range/Units 04:05 04:05 RBC 3.50 L (4.30-5.90) m/uL Hgb 11.5 L (13.0-17.5) gm/dL Hct 35.2 L (39.0-53.0) % MCV 100.5 H (80.0-100.0) fL Plt Count 464 H (150-450) k/uL Sodium 132 L (137-145) mmol/L Carbon Dioxide 19 L (22-30) mmol/L Calcium (8.4-10.2) mg/dL Alkaline Phosphatase (38-126) U/L Ur Specific [place] (1.001-1.035) Urine Protein (Negative) CT scan - chest: report reviewed Assessment and Plan (1) Hemoptysis Current Visit: Yes Status: Acute Code(s): R04.2 - HEMOPTYSIS SNOMED Code(s): 91563594 (2) Mediastinal mass Current Visit: Yes Status: Acute Code(s): J98.59 - OTHER DISEASES OF M MORGANTINUM, NOT ELSEWHERE CLASSIFIED SNOMED Code(s): 85911338 (3) Macrocytic anemia Current Visit: Yes Status: Acute Code(s): D53.9 - NUTRITIONAL ANEMIA, UNSPECIFIED SNOMED Code(s): 29683625 Plan: plan is for Bronchoscopy with biopsy on MRI of Brain to evaluate for metastatic disease Anemia Work-up Called family and left message no answer. Will call again in am Physician attest: I have completed the full history and physical and agree with above dictation, dictated as a ascribe
[2021-02-21] MEDS: amLODIPine 5 MG TAB PO SCH (21:28)
[2021-02-21 23:07] LABS: Reticulocyte % 1.18 % (0.10-1.80)
[2021-02-22] MEDS: oxyCODONE-APAP 10-325MG 1 EACH TAB PO PRN ×3 (00:29→17:36)
[2021-02-22] MEDS: ALPRAZolam 0.5 MG TAB PO PRN ×2 (00:31→08:34)
[2021-02-22 05:01] LABS: Basophils % (A) 0 %; Eosinophils # (A) 0.1 k/uL (0-0.7); Eosinophils % (A) 1 %; HCT 30.8 % (39.0-53.0); HGB 10.2 gm/dL (13.0-17.5); Lymphocytes # (A) 1.3 k/uL (1.0-4.8); Lymphocytes % (A) 18 %; MCH 32.7 pg (25.0-35.0); MCHC 33.1 g/dL (31.0-37.0); MCV 98.8 fL (80.0-100.0); Mean Platelet Volume 6.7; Monocytes # (A) 0.6 k/uL (0-1.0); Monocytes % (A) 8 %; Neutrophils # (A) 5.1 k/uL (1.3-7.7); Neutrophils % (A) 71 %; Platelet Count 438 k/uL (150-450); RBC 3.12 m/uL (4.30-5.90); WBC 7.3 k/uL (3.8-10.6)
[2021-02-22] MEDS: IPRATROPIUM-ALBUTEROL 3 ML NEB INHALATION SCH ×3 (07:18→15:25)
[2021-02-22] MEDS: GABAPENTIN 300 MG CAP PO SCH ×2 (08:24→15:52)
[2021-02-22 09:59] LABS: African American GFR (CKD) 125.8 (60.0-200.0); Albumin 3.5 g/dL (3.80-4.90); Albumin/Globulin Ratio 1.46 (1.60-3.17); Anion Gap 5.9 mmol/L (4.00-12.00); BUN/Creat Ratio 13.33 Ratio (12.00-20.00); Calcium 9.3 mg/dL (8.7-10.3); Carbon Dioxide 20.1 mmol/L (21.6-31.8); Globulin 2.4 g/dL (1.6-3.3); Non-African American GFR(CKD) 108.5 (60.0-200.0); Potassium 3.8 mmol/L (3.5-5.5); Total Bilirubin 0.1 mg/dL (0.2-1.2); Total Protein 5.9 g/dL (6.2-8.2)
--- NOTE | 2021-02-22 10:02 | P.PN ---
Subjective Progress Note Date: 02/22/21 Principal diagnosis: Right paratracheal mass. Pulmonary and critical care consultation dated 02/21/2021. 60-year-old male, seen in room 615, who was admitted with a diagnosis of hemoptysis and chronic cough. Apparently both started about 3 or 4 days ago. Some of blood is pink and frothy, and some of the blood is more dark. The patient has been followed by my partner for a number of months and years, for some abnormal pulmonary nodules. The most recent computed tomography scan showed that the nodules compared to a prior computed tomography scan, had IC gone smaller in size. This is a 2019 computed tomography scan compared to one done in 2017. Unfortunately, the patient has been smoking for 40 years or so. He continues to smoke. The most recent chest x-ray and CAT scan show a large right perihilar mass. I talked to the patient about possibly going home on fol lowing up with Dr. Melgoza or having a bronchoscopy here while he was hospitalized. He agrees to the latter. Anyway, we'll get him scheduled for the Bronch. and biopsy tomorrow. We'll have pathology in the room to look at the specimens as we obtain them. Looking at the CAT scan, the patient has a large right perihilar mass. Probably, we can do some transtracheal and transbronchial biopsies anteriorly into the mass. White count 6.7, hemoglobin 11.5, hematocrit 35.2, platelet count 464,000. Sodium 132, potassium 4, chlorides 105, CO2 19, anion gap 8, BUN 9, creatinine 0.66. Chest x-ray and CAT scan of both reviewed. Progress note dated 02/22/2021. 60-year-old male, who was seen yesterday in consultation, in room 615. The patient did agree to have bronchoscopy today. We likely will do some biopsies of the distal trachea and/or subcarinal region, hopefully getting a diagnosis. We will have pathology present. The patient is a heavy smoker. He presented to the hospital with hemoptysis. The patient's appetite has not been great in he's lost about 5 or 7 pounds according to him and his . We had a long conversation with him in the room yesterday. He was agreeable to bronchoscopy and biopsy today. We will hopefully be able to discharge him after the procedure today. White count 7.3, hemoglobin 10.2, hematocrit 30.8, platelet count 438,000. Sodium 134, potassium 3.8, chlorides 108, CO2 20, anion gap 6, BUN 8, and creatinine 0.6. Objective - Vital Signs Vital signs: Vital Signs Temp 98 F 02/22/21 07:00 Pulse 88 02/22/21 07:31 Resp 16 02/22/21 08:00 BP 114/58 02/22/21 07:00 Pulse Ox 97 02/22/21 07:00 Intake & Output 02/21/21 02/22/21 02/22/21 18:59 06:59 18:59 Intake Total 400 500 Balance 400 500 Intake: Oral 400 500 Other: Voiding Method Toilet Toilet Toilet # Voids 2 2 - Exam No acute distress, oriented 3. Room air saturation is 97%. HEENT examination is grossly unremarkable. Neck supple. Full range of motion. No adenopathy thyromegaly or neck vein distention. Cardiovascular examination reveals regular rhythm rate. S1-S2 normal. No S3 or S4. No discernible murmur noted. Heart rate is 88 bpm. Lungs reveal mild scattered rhonchi. No wheezes or crackles. Breath sounds equal bilaterally. Abdomen soft bowel sounds are heard. No masses or tenderness. Extremities are intact. No cyanosis clubbing or edema. Skin is without rash or lesion. Neurologic examination is brief but nonfocal. - Labs CBC & Chem 7: 02/22/21 04:43 02/21/21 04:05 Labs: Abnormal Lab Results - Last 24 Hours (Table) 02/22/21 Range/Units 04:43 RBC 3.12 L (4.30-5.90) m/uL Hgb 10.2 L (13.0-17.5) gm/dL Hct 30.8 L (39.0-53.0) % Assessment and Plan Assessment: Right perihilar/mediastinal mass, likely consistent with bronchogenic carcinoma. Hemoptysis, likely secondary to the mass noted on computed tomography scan. There may be some erosion of the mass into the distal trachea or right mainstem bronchus. History of COPD. History of hypertension. History of ongoing tobacco use with nicotine addiction. History of multiple pulmonary nodules, being followed by my partner, with most recent computed tomography scan showing the nodules to be stable or slightly decreased in size. Plan: Plan dated 02/21/2021. I gave the patient the option of either being discharged home and be followed up by my partner, or just having his bronchoscopy done tomorrow. He chooses to have the bronchoscopy done while here in the hospital. We will have pathology standing by. We will get a consent on the chart. The patient will be nothing by mouth after midnight. Additional recommendations and suggestions are forthcoming. He will need a outpatient PET scan as well. Plan dated 02/22/2021. The patient is going to have bronchoscopy today. Will focus her attention on the distal trachea, and subcarinal regions mostly on the right side. We will have pathology present over get a diagnosis of all in the room. If everything goes well, and the patient is stable, he could be discharged after the procedure today. Additional recommendations are forthcoming. If we are unable to make a diagnosis, we may send him for a mediastinoscopy. Time with Patient: Less than 30
--- NOTE | 2021-02-22 10:06 | XR ---
EXAMINATION TYPE: XR skull limited DATE OF EXAM: 02/22/2021 COMPARISON: NONE HISTORY: Previous year surgery TECHNIQUE: 2 views submitted FINDINGS: No metallic foreign body seen overlying the soft tissues of the anterior or orbits. IMPRESSION: No evidence of radio metallic foreign body as visualized.
--- NOTE | 2021-02-22 11:34 | MR ---
EXAMINATION TYPE: MR brain wo/w con DATE OF EXAM: 02/22/2021 COMPARISON: NONE HISTORY: Assess for metastatic disease; newly diagnosed cancer. TECHNIQUE: Multiplanar, multisequence images of the brain and brainstem is performed without and with IV contras t, utilizing 6 mL intravenous Gadavist . FINDINGS: Diffusion weighted images demonstrate no evidence of a recent infarct or other diffusion ab normality. There is no extra-axial fluid collection or significant white matter signal abnormality. The ventricular system and cisternal spaces are normal in size and appearance. The brain volume is age appropriate. Midline structures demonstrate normal morphology. The craniocervical junction appears within normal limits. Post contrast images demonstrate no suspicious enhancement or enhancing focal masses. The du ral venous sinuses appear patent. The visualized sinuses are clear and the globes are intact. Increas ed fluid signal right mastoid air cells. Correlate clinically to exclude right-sided mastoiditis. IMPRESSION: No suspicious enhancement or enhancing masses to suggest metastatic disease to the brain.
[2021-02-22] MEDS ORDERED: MORPHINE SULFATE 2 MG/ML SYRINGE IVP STA (12:33)
[2021-02-22] MEDS ORDERED: LIDOCAINE 1% INJ 10MG/ML (20 ML MDV) ONE (13:45)
[2021-02-22] MEDS ORDERED: fentaNYL (PF) 50 MCG/ML 2 ML AMP ONE (13:45)
[2021-02-22] MEDS ORDERED: MIDAZOLAM 2 MG/2 ML VIAL ONE (13:45)
[2021-02-22] MEDS ORDERED: PROPOFOL 10 MG/ML 20 ML VIAL IV ONE (13:45)
[2021-02-22] MEDS ORDERED: PHENYLEPHRINE-0.9% NACL SYG 1,000 MCG/10 ML SYRINGE ONE (13:45)
[2021-02-22] MEDS ORDERED: SODIUM CHLORIDE 0.9% 500 ML 500 ML IV ONE (13:53)
[2021-02-22 15:28] VITALS: TEMP 97.6
--- NOTE | 2021-02-22 16:28 | P.DS ---
Providers Date of admission: 02/21/21 11:28 Expected date of discharge: 02/22/21 Attending physician: Shin Martins MD Consults: 02/20/21 21:15 Consult Physician Urgent Consulting Provider: Kendall Gonzalez Consult Reason/Comments: acute hemoptysis, mediastinal mass Do you want consulting provider notified?: Yes 02/20/21 22:15 Consult Physician Routine Consulting Provider: Barrington Alvarado Consult Reason/Comments: malignancy suspected Do you want consulting provider notified?: Yes, Notify in am Primary care physician: Nilesh Lee MD Hospital Course: Discharge Diagnosis: Right superior mediastinal mass, hemoptysis, preliminary frozen section consistent with adenocarcinoma Adrenal lesion COPD without exacerbation Hypertension Tobacco abuse Hypercalcemia Unintentional weight loss Fatigue Hospital Course: Patient is a 60-year-old male with a history of COPD and ongoing tobacco abuse, hypertension, and arthritis who presented to the emergency department secondary to hemoptysis. In the ER he underwent an extensive evaluation. He was found to have a slight anemia with a hemoglobin of 11.9, sodium 132, carbon dioxide 18. CT of the chest showed a right superior mediastinal mass with a right-sided interstitial opacities consistent with malignancy and possible leptomeningeal spread. A 1.8 cm left adrenal lesion was also noted. He was admitted for further monitoring. He was seen by Dr. Alvarado who recommended biopsy. He was evaluated by pulmonary and underwent biopsy during bronchoscopy on 02/22/21. Frozen section consistent with adenocarcinoma. She underwent MRI brain which showed no signs of metastatic disease. He was determined stable for discharge home. Follow-up: Case discussed with Dr. Alvarado who will coordinate insurance authorization for outpatient/PET scan. Percocet refill. Tessalon Perles for cough. Follow with Dr. Lee and Dr. Melgoza in 1-2 weeks. Patient seen and examined at bedside. He continues to have some shortness of breath and cough. He is having increased back pain. He has run out of his Percocet at home due to the increased pain. She wants to go home. We had a lengthy discussion about need for outpatient close follow-up with Dr. Alvarado and Dr. Melgoza. Vital signs reviewed and stable. General: non toxic, no distress, appears older than stated age, cachectic Derm: warm, dry Head: atraumatic, normocephalic, symmetric Eyes: EOMI, no lid lag, anicteric sclera Mouth: no lip lesion, mucus membranes moist Cardiovascular: S1S2 reg, no murmur, positive posterior tibial pulse bilateral, Lungs: Coarse breath sounds bilateral, no rhonchi, no rales , no accessory muscle use Abdominal: soft, nontender to palpation, no guarding, no appreciable org anomegaly Ext: no gross muscle atrophy, no edema, no contractures Neuro: CN II-XI grossly intact, no focal neuro deficits Psych: Alert, oriented, appropriate affect A total of 35 minutes of time were spent preparing this complex discharge summary . Patient Condition at Discharge: Stable Plan - Discharge Summary Discharge Rx Participant: Yes New Discharge Prescriptions: New Benzonatate [Tessalon Perles] 100 mg PO TID PRN #90 cap PRN Reason: Cough Continue amLODIPine [Norvasc] 5 mg PO HS Gabapentin 600 mg PO TID ALPRAZolam [Xanax] 0.5 mg PO TID PRN PRN Reason: Anxiety oxyCODONE HCL/ACETAMINOPHEN [Percocet 10-325 mg] 1 tab PO QID #28 tab Discontinued Ibuprofen [Motrin] 800 mg PO TID PRN PRN Reason: Pain Discharge Medication List Gabapentin 600 mg PO TID 03/13/17 [History] amLODIPine [Norvasc] 5 mg PO HS 03/13/17 [History] ALPRAZolam [Xanax] 0.5 mg PO TID PRN 02/20/21 [History] Benzonatate [Tessalon Perles] 100 mg PO TID PRN #90 cap 02/22/21 [Rx] oxyCODONE HCL/ACETAMINOPHEN [Percocet 10-325 mg] 1 tab PO QID #28 tab 02/22/21 [Rx] Follow up Appointment(s)/Referral(s): Barrington Alvarado MD [STAFF PHYSICIAN] - 1 Week Nilesh Lee MD [Primary Care Provider] - 1-2 days Manisha Melgoza MD [STAFF PHYSICIAN] - 2 Weeks Discharge Disposition: HOME SELF-CARE
[2021-02-22 17:11] VITALS: BP 121/73; PULSE 82; RESP 16
[2021-02-22 17:14] LABS: Ferritin 147.9 ng/mL (22.0-322.0)
[2021-02-22 17:15] LABS: Folate, Serum 2.8 ng/mL
--- NOTE | 2021-02-22 22:33 | PCN ---
PROCEDURE NOTE PULMONARY/CRITICAL CARE PROCEDURE NOTE: PROCEDURE PERFORMED: Bronchoscopy, airway examination, therapeutic lavage and transbronchial needle aspirations/Mejia needle aspiration biopsies of the subcarinal region. PREOP DIAGNOSIS: Cancer. POSTOP DIAGNOSIS: Cancer. ANESTHESIA: Provided general anesthesia. The patient was intubated and ventilated. There was informed consent and universal timeout. DESCRIPTION OF PROCEDURE: After the patient was under the effects of anesthesia and intubated, the bronchoscope was inserted through the bronchoscope adapter connected to the endotracheal tube. We did a thorough evaluation of both lungs. The abnormalities primarily were in the distal lateral wall of the trachea and in the subcarinal region. In the subcarinal region, the tracheal thierry was of very blunted and dull. It was an obvious abnormality in this area. The tracheal thierry was not sharp at all. Also abnormality was noted in the lateral distal wall of the right side of the trachea. We attempted to biopsy these areas, but because of the way the needle came out of the scope, we were not able to successfully biopsy these areas, so all the biopsies were confined to the subcarinal region. We made multiple passes including the slides for the pathologist and also enough material for cell block. The pathologist who was in the room evaluating the materials thought the patient likely had adenocarcinoma. This is based on a couple different passes that we made with the scope. He will obviously do additional staining in the laboratory and there was material provided for cell block. The patient tolerated the procedure well. The patient will be recovered by Anesthesia. There was no immediate complication. There was minimal bleeding. MMODL / IJN: [id number] /
== END 2021-02-22 17:55 | disposition home or self-care (01) | DRG 181 ==
LOC: EC 15:34 → 6NMEDSUR 21:16 → OBSVTOIN 02-21 11:28
PROVIDERS: ADMIT Internal Medicine; ATTEND Internal Medicine
PROC: 0BD28ZX Extraction of Carina, Via Natural or Artificial Opening Endoscopic, Diagnostic (ICD-10-PCS; principal; 2021-02-22 13:35)
DX: C38.3 Malignant neoplasm of mediastinum, part unspecified (principal); R04.2 Hemoptysis; E87.2 Acidosis; D53.9 Nutritional anemia, unspecified; E83.52 Hypercalcemia; D75.89 Other specified diseases of blood and blood-forming organs; I10 Essential (primary) hypertension; J44.9 Chronic obstructive pulmonary disease, unspecified; D18.00 Hemangioma unspecified site; E27.9 Disorder of adrenal gland, unspecified; F17.210 Nicotine dependence, cigarettes, uncomplicated; Z79.899 Other long term (current) drug therapy; Z80.0 Family history of malignant neoplasm of digestive organs; M19.90 Unspecified osteoarthritis, unspecified site
CPT/HCPCS: 31629; 36415; 70250; 70553; 71046; 71275; 80048; 80053; 81003; 82607; 82728; 82746; 83540; 83550; 83605; 83615; 83921; 84484; 85025; 85045; 85610; 85730; 88173; 88305; 93005; 94640; 96374; 99285

== ENCOUNTER → 2021-03-02 | Outpatient (CLI) | payer MEDICARE ==
--- NOTE | 2021-03-02 15:24 | PE ---
EXAMINATION TYPE: PET CT fusion skull to thigh DATE OF EXAM: 03/02/2021 COMPARISON: Prior PET/CT May 31, 2017. Most recent CT February 20, 2021 and older CTs HISTORY: Abnormal CT, solitary pulmonary nodule TECHNIQUE: Following the intravenous administration of 11.23 mCi of F-18 FDG, whole body images are performed from the skull base to the midthigh. Images are reviewed on the computer in the coronal, a xial, and sagittal planes. Reconstructed rotating images are created on independent workstation and reviewed on the computer. A localization and attenuation correction CT is performed in conjunction with the PET scan. Blood glucose level was 120 SCAN: Initial Scan FINDINGS: SKULL BASE AND NECK: No areas of suspicious hypermetabolic uptake. Ultrasound CHEST, MEDIASTINUM, AND HILAR REGION: Background mild/moderate underlying emphysematous change is red emonstrated. Stable 1.0 cm nodule posterior aspect left upper lobe on axial image 88 remains a metabo lic, diminished in size from prior PET/CT. There is a 6 mm nodule right upper lobe axial image 86 sta ble from 2019 CT and stable or smaller from PET/CT. Immediately medial and inferior to this there is linear increased opacity. No areas of abnormal hypermetabolic uptake throughout the lung parenchyma a nd small nodules. There is abnormal large mediastinal mass measuring approximately 7.5 x 6.5 cm axial image 102 with ab normal hypermetabolic uptake corresponding to most recent CT, max SUV is 13.21. There is a satellite nodule anterior lobulated extension redemonstrated. ABDOMEN AND PELVIS: New abnormal hypermetabolic left adrenal mass measuring 2.8 x 2.4 cm axial image 159, max SUV is 5.49. No additional areas of abnormal hypermetabolic uptake. OSSEOUS STRUCTURES: No areas of abnormal hypermetabolic uptake. OTHER CT: Small pericardial effusion redemonstrated. Three-vessel coronary artery calcification noted . Patient has little intra-abdominal fat. Subcutaneous lesion right pubis region axial image 240 favore d benign. Multilevel spurring in the thoracolumbar spine. Mild to moderate calcified plaque of the ao rta. IMPRESSION: Confirmation of large mediastinal malignancy and left adrenal malignant lesion. Primary l yoav lesion not well visualized.
== END | disposition home or self-care (01) ==
LOC: RADPETMAIN 12:33
PROVIDERS: ATTEND Internal Medicine Hematology & Oncology
DX: C38.3 Malignant neoplasm of mediastinum, part unspecified (principal); C74.92 Malignant neoplasm of unspecified part of left adrenal gland
CPT/HCPCS: 78815; A9552

== ENCOUNTER 2021-03-09 08:40 | Day surgery (SDC) | payer MEDICARE ==
[~2021-03-09 08:40] MED LIST: ALBUTEROL NEB (CONC) 2.5 MG/0.5 ML INHALATION ONE; LACTATED RINGERS 1,000 ML IV SCH; LIDOCAINE 2% (PF) 20 MG/ML 5 ML VIAL INHALATION ONE; LIDOCAINE VISCOUS 300 MG/15 ML CUP MUCOUS MEM ONE
[2021-03-09] MEDS ORDERED: LACTATED RINGERS 1,000 ML IV ONE (11:12)
[2021-03-09] MEDS ORDERED: LIDOCAINE 1% INJ 10MG/ML (20 ML MDV) ONE (11:14)
[2021-03-09] MEDS ORDERED: PHENYLEPHRINE-0.9% NACL SYG 1,000 MCG/10 ML SYRINGE ONE (11:14)
[2021-03-09] MEDS ORDERED: GLYCOPYRROLATE 0.2 MG/ML 2 ML VIAL ONE (11:14)
[2021-03-09] MEDS ORDERED: MIDAZOLAM 2 MG/2 ML VIAL ONE (11:14)
[2021-03-09] MEDS ORDERED: SUCCINYLCHOLINE CHLORIDE 100 MG/5 ML SYR IV ONE (11:14)
[2021-03-09] MEDS ORDERED: PROPOFOL 10 MG/ML 20 ML VIAL IV ONE (11:14)
[2021-03-09] MEDS ORDERED: NEOSTIGMINE 1 MG/ML 10 ML VIAL ONE (11:14)
[2021-03-09] MEDS ORDERED: ROCURONIUM 10 MG/ML (5 ML VIAL) IV ONE (11:14)
[2021-03-09] MEDS ORDERED: fentaNYL (PF) 50 MCG/ML 2 ML AMP ONE (11:14)
[2021-03-09 12:40] VITALS: TEMP 97.5
[2021-03-09 13:13] VITALS: BP 139/67; PULSE 89; RESP 20
--- NOTE | 2021-03-09 18:03 | P.PCN ---
Date of Procedure: 03/09/21 Operative Findings: Preoperative Diagnosis: 1 mediastinal mass involving the right paratracheal, the mediastinal extending in the subcarinal area. Postoperative Diagnosis: 1 compression of the anterior wall of the trachea milligrams distal lower one third most on the right lateral wall. 2 mediastinal mass/ lymphadenopathy Procedure(s) Performed: 1 flexible bronchoscopy, airway inspection 2 endoscopic ultrasound (EBUS) 3 transbronchial needle aspirate of mediastinal mass at the level of station 4R and station 7 lymph nodes Surgeon: Manisha Melgoza Front Loader Residential Driver #1: wes Lyons) Front Loader Residential Driver #2: CHLOÉ BURDEN Estimated Blood Loss (ml): 0 Pathology: other Condition: stable Disposition: same day Operative Findings: After obtaining the consent the patient was taken to the OR suite he was int ubated and put on MV by anesthesia then the scope was advanced to the ET tube until the Trachea was seen. The proximal trachea was within normal limits. The mid trachea was within normal limits. Distal trachea showed some extrinsic compression in the anterolateral wall causing some mass effect and narrowing of the trachea. Some mucosal irregularities also noted involving the anterior and lateral wall of the trachea. The thierry appears normal then the scope advanced to the left main and DEBI LB1-LB3 were seen and no endobronchial lesions were seen then the scope advanced to the lingula and the LB4 and LB5 were seen and no endobronchial lesions were seen the scope retracted and advanced to the left lower lobes LB6 to LB12 were seen one by one and no endobronchial lesions, then the scope was retracted back to the thierry and advanced to the Right main and RUL RB1 and RB2 and RB3 were seen one by one and no endobronchial lesions were seen the scope then retracted and advanced to the BI and RML RB4 and RB5 were seen and no endobronchial lesions were seen then it was retracted and advanced to the RLL RB6 to RB12 were seen one by one and no endobronchial lesions. Then EBUS was used and the lymph nodes were examined. Direct measurement of the mediastinal lymph nodes revealed an anterior tracheal/mediastinal mass extending from the pretracheal area and to the right paratracheal with a subcarinal extension and a mass was also extending superiorly along the right paratracheal region. Measurements were done and the subcarinal extension of the tumor was measuring around 20 x 19 mm in size, the right paratracheal and anterior mediastinum extension was around 5.5 cm in size. In addition, there were smaller lymph nodes at the level of station 11 R superior measuring 10 x 13 mm in size and 11 R inferior measuring 18 x 14 mm in size. Examination of the left included the station 4 L lymph node measuring 15 x 14 mm in size, station 11 L measuring 6.2 x 6.2 mm in size. At this point, I performed transbronchial needle aspirate of station 7 (subcarinal mass extension) and a total of 4 passes FNA without major bleeding station 4 R lymph nodes ( right paratracheal mass) were a total of 3 passes were obtained. No major bleeding and the scope was removed and taken out in total the patient was send to the floor in stable condition
== END 2021-03-09 13:55 | disposition home or self-care (01) ==
LOC: ORWHC2ENDO 08:40
PROVIDERS: ATTEND Internal Medicine Critical Care Medicine
DX: C38.1 Malignant neoplasm of anterior mediastinum (principal); I10 Essential (primary) hypertension; F41.9 Anxiety disorder, unspecified; J44.9 Chronic obstructive pulmonary disease, unspecified; Z79.899 Other long term (current) drug therapy
CPT/HCPCS: 87252; 87070; 87205; 87116; 87102; 87206; 31629; 31624; 31627; 10005; 10006; J2250; J2710; J2001; J3010; J2370; J0330; J2704; 87496; 87498; 87502; 87529; 87634; 87798; 88108; 88173; 88305; 88341; 88342

== ENCOUNTER 2021-05-01 12:39 | Inpatient (IN) | payer MEDICARE, OTHER ==
[2021-05-01] MEDS ORDERED: SODIUM CHLORIDE 0.9% 1,000 ML IV STA (12:56)
[2021-05-01] MEDS ORDERED: ALBUTEROL HFA INHALER INHALATION STA (12:56)
[2021-05-01] MEDS ORDERED: SODIUM CHLORIDE 0.9% 500 ML 500 ML IV STA (12:56)
--- NOTE | 2021-05-01 13:15 | ED ---
General Adult HPI - General Stated complaint: TOSIN Time Seen by Provider: 05/01/21 12:40 Source: patient, RN notes reviewed, old records reviewed - History of Present Illness Initial comments: This is a 60-year-old male presents emergency department with past medical history significant for metastatic lung cancer. Patient has received one treatment of chemo and had 2 weeks of radiation. Patient comes in today because he has had difficulty breathing last few days he's also complained about chest pain starting this morning and the left-sided chest and he has vomited almost every day and he thinks he is dehydrated. Patient states he is too weak to get up and move around it becomes extremely short of breath. Patient also complains to be very weak and continues to lose weight. Patient denies any headache patient denies any numbness or focal weakness. Patient denies any palpitation. Patient denies any fever chills or cough. Patient does have the COVID vaccine. Patient denies any abdominal pain. Patient denies any diarrhea. - Related Data Home Medications Medication Instructions Recorded Confirmed Gabapentin 600 mg PO TID 03/13/17 05/01/21 ALPRAZolam [Xanax] 0.25 - 5 mg PO TID PRN 02/20/21 05/01/21 Cyanocobalamin [Vitamin B-12] 500 mcg PO DAILY 05/01/21 05/01/21 Folic Acid 1 mg PO DAILY 05/01/21 05/01/21 Ibuprofen [Motrin] 800 mg PO Q8H PRN 05/01/21 05/01/21 Megestrol [Megace] 800 mg PO DAILY 05/01/21 05/01/21 Naloxone HCl [Narcan] 4 mg NASAL ONCE PRN 05/01/21 05/01/21 Ondansetron [Zofran] 4 mg PO Q8HR PRN 05/01/21 05/01/21 Polyethylene Glycol 3350 [Miralax] 17 gm PO DAILY PRN 05/01/21 05/01/21 Sennosides [Senna] 8.6 mg PO DAILY PRN 05/01/21 05/01/21 fentaNYL 75MCG/HR PATCH [Duragesic 1 patch TRANSDERM Q72H 05/01/21 05/01/21 75MCG/HR] oxyCODONE-APAP 10-325MG [Percocet 2 tab PO Q6H PRN 05/01/21 05/01/21 10-325 mg] Previous Rx's Medication Instructions Recorded Benzonatate [Tessalon Perles] 100 mg PO TID PRN #90 cap 02/22/21 Allergies Allergy/AdvReac Type Severity Reaction Status Date / Time No Known Allergies Allergy Verified 05/01/21 14:35 Review of Systems ROS Statement: Those systems with pertinent positive or pertinent negative responses have been documented in the HPI. ROS Other: All systems not noted in ROS Statement are negative. Past Medical History Past Medical History: COPD, Hypertension Additional Past Medical History / Comment(s): COPD, degenerative arthritis, alcoholism History of Any Multi-Drug Resistant Organisms: None Reported Past Surgical History: Ear Surgery Past Anesthesia/Blood Transfusion Reactions: No Reported Reaction Past Psychological History: No Psychological Hx Reported Smoking Status: Current every day smoker Past Alcohol Use History: Occasional Past Drug Use History: None Reported - Past Family History Family Additional Family Medical History / Comment(s): Pancreatic cancer runs in the family General Exam - General Exam Comments Initial Comments: GENERAL: Patient is well-developed and well-nourished. Patient is nontoxic and well- hydrated and is in mild distress. ENT: Neck is soft and supple. No significant lymphadenopathy is noted. Oropharynx is clear. Dry mucous membranes. Neck has full range of motion without eliciting any pain. EYES: The sclera were anicteric and conjunctiva were pink and moist. Extraocular movements were intact and pupils were equal round and reactive to light. Eyelids were unremarkable. PULMONARY: Unlabored respirations. Good breath sounds bilaterally. No audible rales rhonchi or wheezing was noted. CARDIOVASCULAR: Patient is tachycardic at about 110 beats a minute. ABDOMEN: Soft and nontender with normal bowel sounds. SKIN: Skin is clear with no lesions or rashes and otherwise unremarkable. NEUROLOGIC: Patient is alert and oriented x3. Cranial nerves II through XII are grossly intact. Motor and sensory are also intact. Normal speech, volume and content. Symmetrical smile. MUSCULOSKELETAL: Normal extremities with adequate strength and full range of motion. No lower extremity swelling or edema. No calf tenderness. LYMPHATICS: No significant lymphadenopathy is noted PSYCHIATRIC: Normal psychiatric evaluation. Course Vital Signs 05/01/21 05/01/21 13:28 17:15 Temperature 98.1 F Pulse Rate 113 H 111 H Respiratory 22 20 Rate Blood Pressure 115/72 O2 Sat by Pulse 100 99 Oximetry Medical Decision Making - Medical Decision Making EKG shows sinus tachycardia at 112 bpm AK interval is 120 QRS 74 QT interval 326 QTC is 444. EKG is of poor quality but there is no obvious ST segment elevation. Chest x-ray shows no acute abnormality. One taken the room after patient received a liter of fluid he was feeling a little bit better but still was too weak and limp. I spoke with some physicians agreed to admit the patient to the patient wrote admitting orders. - Lab Data Result diagrams: 05/01/21 13:25 05/01/21 13:25 Lab Results 05/01/21 05/01/21 05/01/21 Range/Units 13:25 13:25 13:25 WBC 6.7 (3.8-10.6) k/uL RBC 3.01 L (4.30-5.90) m/uL Hgb 8.8 L (13.0-17.5) gm/dL Hct 28.1 L (39.0-53.0) % MCV 93.5 (80.0-100.0) fL MCH 29.4 (25.0-35.0) pg MCHC 31.4 (31.0-37.0) g/dL RDW 16.7 H (11.5-15.5) % Plt Count 455 H (150-450) k/uL MPV 7.2 Neutrophils % 88 % Lymphocytes % 6 % Monocytes % 5 % Eosinophils % 0 % Basophils % 0 % Neutrophils # 5.9 (1.3-7.7) k/uL Lymphocytes # 0.4 L (1.0-4.8) k/uL Monocytes # 0.3 (0-1.0) k/uL Eosinophils # 0.0 (0-0.7) k/uL Basophils # 0.0 (0-0.2) k/uL Hypochromasia Slight Poikilocytosis Slight Anisocytosis Slight PT 12.2 H (9.0-12.0) sec INR 1.2 H (<1.2) APTT 28.2 (22.0-30.0) sec Sodium 135 L (137-145) mmol/L Potassium 3.9 (3.5-5.1) mmol/L Chloride 110 H (98-107) mmol/L Carbon Dioxide 15 L (22-30) mmol/L Anion Gap 10 mmol/L BUN 9 (9-20) mg/dL Creatinine 0.57 L (0.66-1.25) mg/dL Est GFR (CKD-EPI)AfAm >90 (>60 ml/min/1.73 sqM) Est GFR (CKD-EPI)NonAf >90 (>60 ml/min/1.73 sqM) Glucose 107 H (74-99) mg/dL Plasma Lactic Acid Eulalio (0.7-2.0) mmol/L Calcium 9.2 (8.4-10.2) mg/dL Magnesium 2.0 (1.6-2.3) mg/dL Total Bilirubin 0.4 (0.2-1.3) mg/dL AST 18 (17-59) U/L ALT 11 (4-49) U/L Alkaline Phosphatase 170 H (38-126) U/L Troponin I (0.000-0.034) ng/mL NT-Pro-B Natriuret Pep pg/mL Total Protein 6.0 L (6.3-8.2) g/dL Albumin 2.7 L (3.5-5.0) g/dL Urine Color Urine Appearance (Clear) Urine pH (5.0-8.0) Ur Specific Orestes (1.001-1.035) Urine Protein (Negative) Urine Glucose (UA) (Negative) Urine Ketones (Negative) Urine Blood (Negative) Urine Nitrite (Negative) Urine Bilirubin (Negative) Urine Urobilinogen (<2.0) mg/dL Ur Leukocyte Esterase (Negative) Urine RBC (0-5) /hpf Urine WBC (0-5) /hpf Ur Squamous Epith Cells (0-4) /hpf Coronavirus (PCR) (Not Detectd) 05/01/21 05/01/21 05/01/21 Range/Units 13:25 13:25 13:25 WBC (3.8-10.6) k/uL RBC (4.30-5.90) m/uL Hgb (13.0-17.5) gm/dL Hct (39.0-53.0) % MCV (80.0-100.0) fL MCH (25.0-35.0) pg MCHC (31.0-37.0) g/dL RDW (11.5-15.5) % Plt Count (150-450) k/uL MPV Neutrophils % % Lymphocytes % % Monocytes % % Eosinophils % % Basophils % % Neutrophils # (1.3-7.7) k/uL Lymphocytes # (1.0-4.8) k/uL Monocytes # (0-1.0) k/uL Eosinophils # (0-0.7) k/uL Basophils # (0-0.2) k/uL Hypochromasia Poikilocytosis Anisocytosis PT (9.0-12.0) sec INR (<1.2) APTT (22.0-30.0) sec Sodium (137-145) mmol/L Potassium (3.5-5.1) mmol/L Chloride (98-107) mmol/L Carbon Dioxide (22-30) mmol/L Anion Gap mmol/L BUN (9-20) mg/dL Creatinine (0.66-1.25) mg/dL Est GFR (CKD-EPI)AfAm (>60 ml/min/1.73 sqM) Est GFR (CKD-EPI)NonAf (>60 ml/min/1.73 sqM) Glucose (74-99) mg/dL Plasma Lactic Acid Eulalio 1.6 (0.7-2.0) mmol/L Calcium (8.4-10.2) mg/dL Magnesium (1.6-2.3) mg/dL Total Bilirubin (0.2-1.3) mg/dL AST (17-59) U/L ALT (4-49) U/L Alkaline Phosphatase (38-126) U/L Troponin I <0.012 (0.000-0.034) ng/mL NT-Pro-B Natriuret Pep 733 pg/mL Total Protein (6.3-8.2) g/dL Albumin (3.5-5.0) g/dL Urine Color Urine Appearance (Clear) Urine pH (5.0-8.0) Ur Specific Orestes (1.001-1.035) Urine Protein (Negative) Urine Glucose (UA) (Negative) Urine Ketones (Negative) Urine Blood (Negative) Urine Nitrite (Negative) Urine Bilirubin (Negative) Urine Urobilinogen (<2.0) mg/dL Ur Leukocyte Esterase (Negative) Urine RBC (0-5) /hpf Urine WBC (0-5) /hpf Ur Squamous Epith Cells (0-4) /hpf Coronavirus (PCR) (Not Detectd) 05/01/21 05/01/21 Range/Units 13:35 16:15 WBC (3.8-10.6) k/uL RBC (4.30-5.90) m/uL Hgb (13.0-17.5) gm/dL Hct (39.0-53.0) % MCV (80.0-100.0) fL MCH (25.0-35.0) pg MCHC (31.0-37.0) g/dL RDW (11.5-15.5) % Plt Count (150-450) k/uL MPV Neutrophils % % Lymphocytes % % Monocytes % % Eosinophils % % Basophils % % Neutrophils # (1.3-7.7) k/uL Lymphocytes # (1.0-4.8) k/uL Monocytes # (0-1.0) k/uL Eosinophils # (0-0.7) k/uL Basophils # (0-0.2) k/uL Hypochromasia Poikilocytosis Anisocytosis PT (9.0-12.0) sec INR (<1.2) APTT (22.0-30.0) sec Sodium (137-145) mmol/L Potassium (3.5-5.1) mmol/L Chloride (98-107) mmol/L Carbon Dioxide (22-30) mmol/L Anion Gap mmol/L BUN (9-20) mg/dL Creatinine (0.66-1.25) mg/dL Est GFR (CKD-EPI)AfAm (>60 ml/min/1.73 sqM) Est GFR (CKD-EPI)NonAf (>60 ml/min/1.73 sqM) Glucose (74-99) mg/dL Plasma Lactic Acid Eulalio (0.7-2.0) mmol/L Calcium (8.4-10.2) mg/dL Magnesium (1.6-2.3) mg/dL Total Bilirubin (0.2-1.3) mg/dL AST (17-59) U/L ALT (4-49) U/L Alkaline Phosphatase (38-126) U/L Troponin I (0.000-0.034) ng/mL NT-Pro-B Natriuret Pep pg/mL Total Protein (6.3-8.2) g/dL Albumin (3.5-5.0) g/dL Urine Color Yellow Urine Appearance Clear (Clear) Urine pH 7.0 (5.0-8.0) Ur Specific Orestes 1.012 (1.001-1.035) Urine Protein 1+ H (Negative) Urine Glucose (UA) Negative (Negative) Urine Ketones Negative (Negative) Urine Blood Negative (Negative) Urine Nitrite Negative (Negative) Urine Bilirubin Negative (Negative) Urine Urobilinogen <2.0 (<2.0) mg/dL Ur Leukocyte Esterase Negative (Negative) Urine RBC 5 (0-5) /hpf Urine WBC 2 (0-5) /hpf Ur Squamous Epith Cells <1 (0-4) /hpf Coronavirus (PCR) Not Detected (Not Detectd) Disposition Clinical Impression: Generalized weakness, Dyspnea, Dehydration, Anemia Disposition: ADMITTED IP TO THIS [facility] Referrals: Nilesh Lee MD [Primary Care Provider] - 1-2 days Time of Disposition: 17:26
[2021-05-01 13:39] LABS: Anisocytosis Slight; Basophils % (A) 0 %; Eosinophils % (A) 0 %; HCT 28.1 % (39.0-53.0); HGB 8.8 gm/dL (13.0-17.5); Hypochromasia Slight; Lymphocytes # (A) 0.4 k/uL (1.0-4.8); Lymphocytes % (A) 6 %; MCH 29.4 pg (25.0-35.0); MCHC 31.4 g/dL (31.0-37.0); MCV 93.5 fL (80.0-100.0); Mean Platelet Volume 7.2; Monocytes # (A) 0.3 k/uL (0-1.0); Monocytes % (A) 5 %; Neutrophils # (A) 5.9 k/uL (1.3-7.7); Neutrophils % (A) 88 %; Platelet Count 455 k/uL (150-450); Poikilocytosis Slight; RBC 3.01 m/uL (4.30-5.90); RDW 16.7 % (11.5-15.5); WBC 6.7 k/uL (3.8-10.6)
[2021-05-01 13:48] LABS: INR 1.2 (<1.2); Partial Thromboplastin Time 28.2 sec (22.0-30.0); Prothrombin Time 12.2 sec (9.0-12.0)
[2021-05-01 13:55] LABS: ALT 11 U/L (4-49); AST 18 U/L (17-59); African American GFR (CKD) >90 (>60 ml/min/1.73 sqM); Albumin 2.7 g/dL (3.5-5.0); Alkaline Phosphatase 170 U/L (38-126); Anion Gap 10 mmol/L; Blood Urea Nitrogen 9 mg/dL (9-20); Calcium 9.2 mg/dL (8.4-10.2); Carbon Dioxide 15 mmol/L (22-30); Chloride 110 mmol/L (98-107); Glucose 107 mg/dL (74-99); Non-African American GFR(CKD) >90 (>60 ml/min/1.73 sqM); Potassium 3.9 mmol/L (3.5-5.1); Sodium 135 mmol/L (137-145); Total Bilirubin 0.4 mg/dL (0.2-1.3)
--- NOTE | 2021-05-01 14:11 | XR ---
EXAMINATION TYPE: XR chest 2V DATE OF EXAM: 05/01/2021 COMPARISON: 02/20/2021 HISTORY: 60-year-old male shortness of breath, left-sided chest pain, currently receiving chemoradiat ion therapy for stage IV lung cancer. TECHNIQUE: AP and lateral views FINDINGS: Heart upper limits of normal in size. Hyperinflation compatible with underlying emphysema. Bilateral nipple shadows. Mild interstitial prominence likely relating to COPD. Right hilar soft tissue promine nce is redemonstrated. Left apical nodularity is unchanged. Slight increased hazy density periphery o f the right upper lobe. No pleural effusion. IMPRESSION: 1. Known right-sided mediastinal mass. Unchanged left apical nodule. Background COPD. 2. Correlate for possible subtle early pneumonia in the right upper lobe.
[2021-05-01 16:32] LABS: Appearance,Urine Clear (Clear); Bilirubin,Urine Negative (Negative); Blood,Urine Negative (Negative); Color,Urine Yellow; Glucose,Urine (UA) Negative (Negative); Ketones,Urine Negative (Negative); Leukocyte Esterase,Urine Negative (Negative); Nitrite,Urine Negative (Negative); Protein,Urine 1+ (Negative); RBC,Urine 5 /hpf (0-5); Specific Gravity,Urine 1.012 (1.001-1.035); Squamous Epithelial Cell,Urine <1 /hpf (0-4); Urobilinogen,Urine <2.0 mg/dL (<2.0); WBC,Urine 2 /hpf (0-5)
[2021-05-01] MEDS ORDERED: LORazepam 2 MG/ML INJ IV STA (17:11)
--- NOTE | 2021-05-01 17:37 | P.HPIM ---
History of Present Illness H&P Date: 05/01/21 Chief Complaint: Shortness of breath This is a 60-year-old white male who reported to the hospital with nausea vomiting shortness of breath and anxiety. Symptoms started last night. He states that he has been recently started on chemoradiation for metastatic lung cancer. He was also started on fentanyl patch but did not like it and thinks that it could be causing his symptoms. At the time of examination patient is in bed, he appears to be in [id number] distress secondary to dry heaving. His is at bedside. There was no reported hematuria dysuria hematemesis or hematochezia. There was no reported fever or chills Review of Systems 10 systems reviewed, pertinent positive and negative findings as in HPI. No chest pain no abdominal pain Past Medical History Past Medical History: COPD, Hypertension Additional Past Medical History / Comment(s): COPD, degenerative arthritis, alcoholism History of Any Multi-Drug Resistant Organisms: None Reported Past Surgical History: Ear Surgery Past Anesthesia/Blood Transfusion Reactions: No Reported Reaction Past Psychological History: No Psychological Hx Reported Smoking Status: Current every day smoker Past Alcohol Use History: Occasional Past Drug Use History: None Reported - Past Family History Family Additional Family Medical History / Comment(s): Pancreatic cancer runs in the f amily Medications and Allergies Home Medications Medication Instructions Recorded Confirmed Type Gabapentin 600 mg PO TID 03/13/17 05/01/21 History ALPRAZolam [Xanax] 0.25 - 5 mg PO TID PRN 02/20/21 05/01/21 History Benzonatate [Tessalon Perles] 100 mg PO TID PRN #90 cap 02/22/21 05/01/21 Rx Cyanocobalamin [Vitamin B-12] 500 mcg PO DAILY 05/01/21 05/01/21 History Folic Acid 1 mg PO DAILY 05/01/21 05/01/21 History Ibuprofen [Motrin] 800 mg PO Q8H PRN 05/01/21 05/01/21 History Megestrol [Megace] 800 mg PO DAILY 05/01/21 05/01/21 History Naloxone HCl [Narcan] 4 mg NASAL ONCE PRN 05/01/21 05/01/21 History Ondansetron [Zofran] 4 mg PO Q8HR PRN 05/01/21 05/01/21 History Polyethylene Glycol 3350 [Miralax] 17 gm PO DAILY PRN 05/01/21 05/01/21 History Sennosides [Senna] 8.6 mg PO DAILY PRN 05/01/21 05/01/21 History fentaNYL 75MCG/HR PATCH [Duragesic 1 patch TRANSDERM Q72H 05/01/21 05/01/21 History 75MCG/HR] oxyCODONE-APAP 10-325MG [Percocet 2 tab PO Q6H PRN 05/01/21 05/01/21 History 10-325 mg] Allergies Allergy/AdvReac Type Severity Reaction Status Date / Time No Known Allergies Allergy Verified 05/01/21 14:35 Physical Exam Vitals: Vital Signs Temp Pulse Resp BP Pulse Ox 05/01/21 17:27 114/84 05/01/21 17:15 111 H 20 99 05/01/21 13:28 98.1 F 113 H 22 115/72 100 Intake and Output 05/01/21 05/01/21 05/01/21 06:59 14:59 22:59 Other: Weight 49.895 kg Constitutional: Mild to moderate distress, conversant, pleasant Eyes: Anicteric sclerae, moist conjunctiva, no lid-lag, PERRLA ENMT: NC/AT,Oropharynx clear, no erythema, exudates Neck:Supple, FROM, no masses, or JVD, No carotid bruits; No thyromegaly Lungs: Decreased breath sounds, no wheezing Cardiovascular: Heart regular in rate and rhythm, No murmurs, gallops, or rubs no peripheral edema Abdominal: Soft Nontender, non distended, no guarding, no rebound Skin: Normal temperature, tone, texture, turgor, No induration No subcutaneous nodules, No rash, lesions, No ulcers Extremities:No digital cyanosis No clubbing, Pedal pulses intact and symmetrical Radial pulses intact and symmetrical Normal gait and station, No calf tenderness Psychiatric: Alert and oriented to person, place and time, Appropriate affect Intact judgement Neuro: Muscles Strength 5/5 in all 4 extremities, Sensation to light touch grossly present throughout, Cranial nerves II-XII grossly intact. No focal sensory deficits Results CBC & Chem 7: 05/01/21 13:25 05/01/21 13:25 Labs: Abnormal Lab Results - Last 24 Hours (Table) 05/01/21 05/01/21 05/01/21 Range/Units 13:25 13:25 13:25 RBC 3.01 L (4.30-5.90) m/uL Hgb 8.8 L (13.0-17.5) gm/dL Hct 28.1 L (39.0-53.0) % RDW 16.7 H (11.5-15.5) % Plt Count 455 H (150-450) k/uL Lymphocytes # 0.4 L (1.0-4.8) k/uL PT 12.2 H (9.0-12.0) sec INR 1.2 H (<1.2) Sodium 135 L (137-145) mmol/L Chloride 110 H (98-107) mmol/L Carbon Dioxide 15 L (22-30) mmol/L Creatinine 0.57 L (0.66-1.25) mg/dL Glucose 107 H (74-99) mg/dL Alkaline Phosphatase 170 H (38-126) U/L Total Protein 6.0 L (6.3-8.2) g/dL Albumin 2.7 L (3.5-5.0) g/dL Urine Protein (Negative) 05/01/21 Range/Units 16:15 RBC (4.30-5.90) m/uL Hgb (13.0-17.5) gm/dL Hct (39.0-53.0) % RDW (11.5-15.5) % Plt Count (150-450) k/uL Lymphocytes # (1.0-4.8) k/uL PT (9.0-12.0) sec INR (<1.2) Sodium (137-145) mmol/L Chloride (98-107) mmol/L Carbon Dioxide (22-30) mmol/L Creatinine (0.66-1.25) mg/dL Glucose (74-99) mg/dL Alkaline Phosphatase (38-126) U/L Total Protein (6.3-8.2) g/dL Albumin (3.5-5.0) g/dL Urine Protein 1+ H (Negative) Assessment and Plan Plan: 1. Lung cancer with metastases stage IV: He is on chemoradiation as an outpatient, chest x-ray possible early right upper lobe pneumonia, supportive care, start Rocephin and Zithromax. Obtain CT chest abdomen pelvis 2. Anxiety: Recently started on Xanax as an outpatient, we will continue anxiolytics when necessary. 3. Anemia: Chronic, likely associated with cancer, hemoglobin 8.8, monitor. 4. Nausea and vomiting unspecified etiology: Discontinue fentanyl patch, obtain abdominal/pelvic CT. 5. Metabolic acidosis: Bicarbonate 15, continue IV fluids and recheck. DVT prophylaxis: SCDs Treatment plan discussed with the patient and his at bedside
[2021-05-01] MEDS ORDERED: LORazepam 2 MG/ML INJ IV PRN (17:41)
[2021-05-01] MEDS ORDERED: ONDANSETRON 4 MG/2 ML VIAL IVP PRN (17:42)
[2021-05-01] MEDS ORDERED: LACTATED RINGERS 1,000 ML IV ONE (17:47)
[2021-05-01] MEDS ORDERED: IPRATROPIUM-ALBUTEROL 3 ML NEB INHALATION STA (18:01)
[2021-05-01] MEDS: AZITHROMYCIN 500 MG in SODIUM CHLORIDE 0.9% 250 ML IVPB SCH (18:47)
[2021-05-01 19:49] LABS: ALT 10 U/L (4-49); AST 18 U/L (17-59); African American GFR (CKD) >90 (>60 ml/min/1.73 sqM); Albumin 2.6 g/dL (3.5-5.0); Alkaline Phosphatase 149 U/L (38-126); Anion Gap 8 mmol/L; Blood Urea Nitrogen 10 mg/dL (9-20); Calcium 8.7 mg/dL (8.4-10.2); Carbon Dioxide 15 mmol/L (22-30); Chloride 113 mmol/L (98-107); Glucose 93 mg/dL (74-99); Non-African American GFR(CKD) >90 (>60 ml/min/1.73 sqM); Potassium 4.2 mmol/L (3.5-5.1); Sodium 136 mmol/L (137-145); Total Bilirubin 0.3 mg/dL (0.2-1.3); Total Protein 5.5 g/dL (6.3-8.2)
[2021-05-01 20:06] LABS: Anisocytosis Slight; Basophils % (A) 0 %; Eosinophils % (A) 0 %; HCT 25.7 % (39.0-53.0); Hypochromasia Moderate; Lymphocytes # (A) 0.2 k/uL (1.0-4.8); Lymphocytes % (A) 4 %; MCH 29.4 pg (25.0-35.0); MCHC 30.9 g/dL (31.0-37.0); MCV 95.2 fL (80.0-100.0); Mean Platelet Volume 7.3; Monocytes # (A) 0.2 k/uL (0-1.0); Monocytes % (A) 4 %; Neutrophils # (A) 4.6 k/uL (1.3-7.7); Neutrophils % (A) 90 %; Platelet Count 436 k/uL (150-450); Poikilocytosis Slight; RDW 16.6 % (11.5-15.5); WBC 5.1 k/uL (3.8-10.6)
[2021-05-01] MEDS: MORPHINE SULFATE 2 MG/ML SYRINGE IVP PRN (20:25)
[2021-05-01] MEDS: BENZONATATE 100 MG CAP PO PRN (21:26)
[2021-05-01] MEDS: GABAPENTIN 300 MG CAP PO SCH (21:27)
[2021-05-01] MEDS: oxyCODONE-APAP 10-325MG 1 EACH TAB PO PRN (21:31)
--- NOTE | 2021-05-01 22:39 | CT ---
EXAMINATION TYPE: CT chest angio for PE DATE OF EXAM: 05/01/2021 COMPARISON: 02/20/2021 HISTORY: lung ca, weakness, nausea and vomiting CT DLP: 233.3 mGycm Automated exposure control for dose reduction was used. CONTRAST: Performed with IV Contrast, patient injected with 100 mL of Isovue 370. Images obtained from the thoracic inlet to the diaphragm with IV contrast. There are 3-D post process ed images. There is some coarse interstitial density in the upper lung tovar. There is irregular 1.5 cm infiltr ate posterior left upper lobe. This is close to the major fissure. There is some reticular infiltrate in the right upper lobe adjacent to the mediastinum. There is large mediastinal mass that measures 7 .5 x 3 cm. There is lateral displacement of the superior vena cava to the right side. The mass is perry nly between the aortic arch in the superior vena cava. There is some reticular interstitial infiltrat e in the posterior segment right upper lobe adjacent to the major fissure. Heart size is normal. There is no pericardial effusion. There is some linear infiltrate and atelectas is left lower lobe on the medial aspect. There is no pleural effusion. Thoracic aorta is intact. There is no aneurysm or dissection. The ascending aorta measures 3.8 cm. Th ere is normal contrast opacification of the pulmonary arteries. There are no filling defects. Upper abdominal soft tissues show large irregular left adrenal mass that measures 6.3 cm. There is ri ght adrenal mass that measures 3.5 cm. Thoracic spine is intact. There is no compression fracture. St ernum is intact. There is fracture of the right lateral fourth rib. There is some expansion. This cou ld be a pathologic fracture. IMPRESSION: No evidence of pulmonary embolism. Large mediastinal mass consistent with tumor. Left upper lobe stellate infiltrate. This could be a tu mor. Enlarged adrenal glands consistent with metastatic disease. Possible pathologic fracture of the right fourth rib that could be metastatic disease. Bilateral multiple areas of mild pulmonary infiltrate.
--- NOTE | 2021-05-02 00:29 | CT ---
EXAMINATION TYPE: CT abdomen pelvis w con DATE OF EXAM: 05/01/2021 COMPARISON: PET CT scan 03/02/2021 HISTORY: lung ca, weakness, nausea and vomiting CT DLP: 506.9 mGycm Automated exposure control for dose reduction was used. CONTRAST: Performed with IV Contrast, patient injected with 100 mL of Isovue 370. Images obtained from the diaphragm to the floor the pelvis with IV contrast. Lung bases are clear of consolidation. There is minimal reticular interstitial density left lung base . There is no pleural effusion. Heart size is normal. There is no pericardial effusion. There is large lobulated left adrenal mass measuring 6.5 cm. There is also enlarged right adrenal mas s measuring 3.5 cm. Liver is intact. Bile ducts are not dilated. Gallbladder appears intact. There is no evidence of a splenic mass. The stomach is intact. Kidneys show satisfactory contrast opacification. There is no hydronephrosis. Ureters are not dilated . There is 3 mm calculus lower pole left kidney. There is no retroperitoneal adenopathy. Bladder dist ends smoothly. There is no inguinal hernia. There is prostatic calcification. There is no mesenteric edema. There is no ascites or free air. There is no evidence of a bowel obstru ction. Appendix not seen. No sign of thickened appendix. There is atherosclerotic vascular calcificat ion in the abdominal aorta and the branches. The lumbar vertebra have normal alignment. There is some degenerative spur formation. There is no sig nificant compression deformity. Bony pelvis is intact. The hip joints are intact. IMPRESSION: Large bilateral adrenal masses consistent with metastatic disease. Minimal fibrotic change at the lef t lung base. Adrenal masses are significantly increased compared to 03/02/2021 and consistent with progression of t umor. Atherosclerotic vascular disease.
[2021-05-02] MEDS: MORPHINE SULFATE 2 MG/ML SYRINGE IVP PRN ×3 (01:38→20:21)
[2021-05-02] MEDS: oxyCODONE-APAP 10-325MG 1 EACH TAB PO PRN ×3 (03:45→21:54)
[2021-05-02] MEDS ORDERED: IPRATROPIUM-ALBUTEROL 3 ML NEB INHALATION STA (04:42)
[2021-05-02] MEDS: IPRATROPIUM-ALBUTEROL 3 ML NEB INHALATION SCH ×4 (07:13→19:40)
[2021-05-02 07:34] LABS: Anisocytosis Slight; Basophils % (A) 0 %; Eosinophils % (A) 0 %; HCT 25.4 % (39.0-53.0); HGB 7.5 gm/dL (13.0-17.5); Hypochromasia Marked; Lymphocytes # (A) 0.2 k/uL (1.0-4.8); Lymphocytes % (A) 4 %; MCH 29.1 pg (25.0-35.0); MCHC 29.5 g/dL (31.0-37.0); MCV 98.4 fL (80.0-100.0); Macrocytosis Slight; Mean Platelet Volume 8.2; Monocytes # (A) 0.3 k/uL (0-1.0); Monocytes % (A) 6 %; Neutrophils # (A) 4.5 k/uL (1.3-7.7); Neutrophils % (A) 88 %; Platelet Count 317 k/uL (150-450); RBC 2.58 m/uL (4.30-5.90); RDW 16.2 % (11.5-15.5); WBC 5.1 k/uL (3.8-10.6)
[2021-05-02] MEDS: FOLIC ACID 1 MG TAB PO SCH (08:02)
[2021-05-02] MEDS: SENNOSIDES 8.6 MG TAB PO PRN (08:02)
[2021-05-02] MEDS: GABAPENTIN 300 MG CAP PO SCH ×3 (08:02→21:54)
[2021-05-02] MEDS: BENZONATATE 100 MG CAP PO PRN ×2 (08:02→16:18)
[2021-05-02] MEDS: MEGESTROL 400 MG/10 ML CUP PO SCH (08:03)
[2021-05-02] MEDS: AZITHROMYCIN 500 MG in SODIUM CHLORIDE 0.9% 250 ML IVPB SCH (09:21)
[2021-05-02 10:36] LABS: ALT 7 U/L (10-49); AST 14 U/L (14-35); African American GFR (CKD) 125.8 (60.0-200.0); Albumin 2.6 g/dL (3.8-4.9); Alkaline Phosphatase 138 U/L (41-126); BUN/Creat Ratio 14.33 Ratio (12.00-20.00); Blood Urea Nitrogen 8.6 mg/dL (9.0-27.0); Calcium 8.7 mg/dL (8.7-10.3); Chloride 112 mmol/L (96-109); Globulin 2.6 g/dL (1.6-3.3); Glucose 106 mg/dL (70-110); Non-African American GFR(CKD) 108.5 (60.0-200.0); Potassium 3.7 mmol/L (3.5-5.5); Sodium 138 mmol/L (135-145); Total Bilirubin <0.20 mg/dL (0.30-1.20); Total Protein 5.2 g/dL (6.2-8.2)
--- NOTE | 2021-05-02 11:20 | P.PN ---
Subjective Progress Note Date: 05/02/21 Feels better today, no chest pain no abdominal pain no nausea no vomiting. Shortness of breath has improved. Patient appears to be more comfortable today. Objective - Vital Signs Vital signs: Vital Signs Temp 97.1 F L 05/02/21 05:00 Pulse 107 H 05/02/21 08:00 Resp 20 05/02/21 08:00 BP 147/75 05/02/21 05:00 Pulse Ox 98 05/02/21 07:13 Intake & Output 05/01/21 05/02/21 05/02/21 18:59 06:59 18:59 Intake Total 960 Balance 960 Weight 49.895 kg Intake: Intake, IV Titration 600 Amount Lactated Ringers 1,000 ml 600 @ 75 mls/hr IV .[id number] Rx#:[id number] Oral 360 Other: # Voids 1 - Exam Constitutional: Sleepy, does not appear to be in distress Eyes: Anicteric sclerae, moist conjunctiva, no lid-lag, PERRLA ENMT: NC/AT,Oropharynx clear, no erythema, exudates Neck:Supple, FROM, no masses, or JVD, No carotid bruits; No thyromegaly Lungs: Decreased breath sounds, no wheezing Cardiovascular: Heart regular in rate and rhythm, No murmurs, gallops, or rubs no peripheral edema Abdominal: Soft Nontender, non distended, no guarding, no rebound Skin: Normal temperature, tone, texture, turgor, No induration No subcutaneous nodules, No rash, lesions, No ulcers Extremities:No digital cyanosis No clubbing Psychiatric: Alert and oriented to person, place and time, Appropriate affect Intact judgement Neuro: Muscles Strength 5/5 in all 4 extremities, Sensation to light touch grossly present throughout, Cranial nerves II-XII grossly intact. No focal sensory deficit - Labs CBC & Chem 7: 05/02/21 07:20 05/02/21 07:20 Labs: Abnormal Lab Results - Last 24 Hours (Table) 05/01/21 05/01/21 05/01/21 Range/Units 13:25 13:25 13:25 RBC 3.01 L (4.30-5.90) m/uL Hgb 8.8 L (13.0-17.5) gm/dL Hct 28.1 L (39.0-53.0) % MCHC (31.0-37.0) g/dL RDW 16.7 H (11.5-15.5) % Plt Count 455 H (150-450) k/uL Lymphocytes # 0.4 L (1.0-4.8) k/uL PT 12.2 H (9.0-12.0) sec INR 1.2 H (<1.2) Sodium 135 L (137-145) mmol/L Chloride 110 H (98-107) mmol/L Carbon Dioxide 15 L (22-30) mmol/L BUN (9.0-27.0) mg/dL Creatinine 0.57 L (0.66-1.25) mg/dL Glucose 107 H (74-99) mg/dL Total Bilirubin (0.30-1.20) mg/dL ALT (10-49) U/L Alkaline Phosphatase 170 H (38-126) U/L Total Protein 6.0 L (6.3-8.2) g/dL Albumin 2.7 L (3.5-5.0) g/dL Albumin/Globulin Ratio (1.60-3.17) g/dL Urine Protein (Negative) 05/01/21 05/01/21 05/01/21 Range/Units 16:15 19:23 19:23 RBC 2.70 L (4.30-5.90) m/uL Hgb 8.0 L (13.0-17.5) gm/dL Hct 25.7 L (39.0-53.0) % MCHC 30.9 L (31.0-37.0) g/dL RDW 16.6 H (11.5-15.5) % Plt Count (150-450) k/uL Lymphocytes # 0.2 L (1.0-4.8) k/uL PT (9.0-12.0) sec INR (<1.2) Sodium 136 L (137-145) mmol/L Chloride 113 H (98-107) mmol/L Carbon Dioxide 15 L (22-30) mmol/L BUN (9.0-27.0) mg/dL Creatinine 0.51 L (0.66-1.25) mg/dL Glucose (74-99) mg/dL Total Bilirubin (0.30-1.20) mg/dL ALT (10-49) U/L Alkaline Phosphatase 149 H (38-126) U/L Total Protein 5.5 L (6.3-8.2) g/dL Albumin 2.6 L (3.5-5.0) g/dL Albumin/Globulin Ratio (1.60-3.17) g/dL Urine Protein 1+ H (Negative) 05/02/21 05/02/21 Range/Units 07:20 07:20 RBC 2.58 L (4.30-5.90) m/uL Hgb 7.5 L (13.0-17.5) gm/dL Hct 25.4 L (39.0-53.0) % MCHC 29.5 L (31.0-37.0) g/dL RDW 16.2 H (11.5-15.5) % Plt Count (150-450) k/uL Lymphocytes # 0.2 L (1.0-4.8) k/uL PT (9.0-12.0) sec INR (<1.2) Sodium (137-145) mmol/L Chloride 112 H (98-107) mmol/L Carbon Dioxide 15.0 L (22-30) mmol/L BUN 8.6 L (9.0-27.0) mg/dL Creatinine (0.66-1.25) mg/dL Glucose (74-99) mg/dL Total Bilirubin <0.20 L (0.30-1.20) mg/dL ALT 7 L (10-49) U/L Alkaline Phosphatase 138 H (38-126) U/L Total Protein 5.2 L (6.3-8.2) g/dL Albumin 2.6 L (3.5-5.0) g/dL Albumin/Globulin Ratio 1.00 L (1.60-3.17) g/dL Urine Protein (Negative) Assessment and Plan Plan: 1. Lung cancer with metastases stage IV: He is on chemoradiation as an outpatient, continue Rocephin and Zithromax. CT chest is consistent with large mediastinal mass, with bilateral infiltrates likely associated with pneumonia. Possible pathological fracture of the right fourth rib. Continue pain control and supportive care. Oxygen as indicated. 2. Anxiety: Recently started on Xanax as an outpatient, we will continue anxiolytics when necessary. 3. Anemia: Chronic, likely associated with cancer, hemoglobin down to 7.5, monitor. 4. Nausea and vomiting unspecified etiology: Discontinue fentanyl patch, abdominal/pelvic CT consistent with large bilateral adrenal mass stent with metastatic disease.. 5. Metabolic acidosis: Bicarbonate 15, continue IV fluids, change to bicarbonate-containing solution. 6. Severe protein calorie malnutrition: BMI 16.7 DVT prophylaxis: SCDs Disposition: Pending clinical progression, likely home in the next 1-2 days
[2021-05-02] MEDS: DEXTROSE 5% IN WATER 1,000 ML with SODIUM BICARB (1 MEQ/ML) 150 ML IV SCH (13:15)
[2021-05-02 15:04] VITALS: BMI 16.7
[2021-05-03] MEDS: MORPHINE SULFATE 2 MG/ML SYRINGE IVP PRN ×3 (00:24→20:44)
[2021-05-03] MEDS: BENZONATATE 100 MG CAP PO PRN ×3 (00:32→12:38)
[2021-05-03] MEDS: IPRATROPIUM-ALBUTEROL 3 ML NEB INHALATION SCH ×6 (01:23→19:29)
[2021-05-03] MEDS: oxyCODONE-APAP 10-325MG 1 EACH TAB PO PRN ×4 (04:13→21:48)
[2021-05-03 06:30] LABS: Anisocytosis Slight; Basophils % (A) 0 %; Eosinophils % (A) 1 %; HGB 7.1 gm/dL (13.0-17.5); Hypochromasia Moderate; Lymphocytes # (A) 0.3 k/uL (1.0-4.8); Lymphocytes % (A) 5 %; MCH 29.4 pg (25.0-35.0); MCHC 30.7 g/dL (31.0-37.0); MCV 95.7 fL (80.0-100.0); Mean Platelet Volume 7.4; Monocytes # (A) 0.3 k/uL (0-1.0); Monocytes % (A) 5 %; Neutrophils # (A) 4.6 k/uL (1.3-7.7); Neutrophils % (A) 87 %; Platelet Count 346 k/uL (150-450); RBC 2.41 m/uL (4.30-5.90); RDW 16.5 % (11.5-15.5); WBC 5.2 k/uL (3.8-10.6)
[2021-05-03] MEDS: AZITHROMYCIN 500 MG in SODIUM CHLORIDE 0.9% 250 ML IVPB SCH (07:32)
[2021-05-03] MEDS: MEGESTROL 400 MG/10 ML CUP PO SCH (07:33)
[2021-05-03] MEDS: GABAPENTIN 300 MG CAP PO SCH ×3 (07:33→21:48)
[2021-05-03] MEDS: FOLIC ACID 1 MG TAB PO SCH (07:33)
[2021-05-03] MEDS: ALPRAZolam 0.5 MG TAB PO PRN (09:44)
[2021-05-03] MEDS: CYCLOBENZAPRINE 5 MG TAB PO PRN ×2 (12:40→20:37)
[2021-05-03] MEDS: DEXTROSE 5% IN WATER 1,000 ML with SODIUM BICARB (1 MEQ/ML) 150 ML IV SCH (16:03)
[2021-05-03 16:08] LABS: ALT 7 U/L (10-49); AST 13 U/L (14-35); African American GFR (CKD) 124.7 (60.0-200.0); Albumin 2.5 g/dL (3.8-4.9); Albumin/Globulin Ratio 1.04 (1.60-3.17); Alkaline Phosphatase 130 U/L (41-126); BUN/Creat Ratio 8.81 Ratio (12.00-20.00); Blood Urea Nitrogen 5.4 mg/dL (9.0-27.0); Calcium 8.5 mg/dL (8.7-10.3); Carbon Dioxide 16.3 mmol/L (21.6-31.8); Chloride 107 mmol/L (96-109); Globulin 2.4 g/dL (1.6-3.3); Glucose 116 mg/dL (70-110); Non-African American GFR(CKD) 107.6 (60.0-200.0); Potassium 3.1 mmol/L (3.5-5.5); Sodium 137 mmol/L (135-145); Total Bilirubin <0.20 mg/dL (0.30-1.20); Total Protein 4.9 g/dL (6.2-8.2)
[2021-05-03] MEDS ORDERED: POTASSIUM CHLORIDE ER 20 MEQ TAB.ER PO STA (16:47)
--- NOTE | 2021-05-03 16:49 | P.PN ---
Subjective Progress Note Date: 05/03/21 (delayed charting seen at 0930) Principal diagnosis: nausea and vomiting. Patient is a 60-year-old male with a history of lung cancer with recent initiation of chemotherapy last week, COPD, and hypertension who presented to the ER complaints of nausea and vomiting. On arrival to the ER he was found have anemia with hemoglobin 8.8, platelet count 455, sodium 135, chloride 110, carbon dioxide 15. He was started on IV fluids and admitted. He underwent a CTA of the chest which showed a large mediastinal mass consistent with tumor, left upper lobe stellar infiltrate, enlarged adrenal gland consistent with metastatic disease, and a possible pathologic fracture of the right fourth rib, as well as bilateral multiple areas of mild pulmonary infiltrates. CT abdomen and pelvis showed large bilateral adrenal masses, mild fibrotic left lung base, and adrenal masses significantly increased in size compared 03/02/21 consistent with tumor progression. Patient seen and examined at bedside. He states he may have gotten chemotherapy last week is his first dose. He is unsure the name of the physician with whom he follows for oncology. He states they are out of [facility] and our hospital. He denies any nausea or vomiting at this time but states he is having very little intake and some nausea and vomiting. He also complains of feeling short of breath and a persistent cough with significant right rib pain. General: Ill appearing, mild distress, appears at stated age Derm: warm, dry Head: atraumatic, normocephalic, symmetric Eyes: EOMI, no lid lag, anicteric sclera Mouth: no lip lesion, mucus membranes moist Cardiovascular: S1S2 reg, no murmur, positive posterior tibial pulse bilateral, Lungs: Coarse breath sounds bilateral, no rhonchi, no rales , no accessory muscle use Abdominal: soft, nontender to palpation, no guarding, no appreciable or ganomegaly Ext: no gross muscle atrophy, no edema, no contractures Neuro: CN II-XI grossly intact, no focal neuro deficits Psych: Alert, oriented, appropriate affect Lung cancer likely with metastases to adrenal gland Possible bilateral pneumonia Right Rib fracture likely pathologic -Continue with Rocephin and Zithromax -Consult oncology -Pain control -Pulmonary hygiene -Mucinex, Tessalon Perles Severe protein malnutrition and cachexia BMI 16.7 -Dietitian recommendations -Nutritional supplementation Metabolic acidosis with bicarb 15 -Continue D5 with 3 amps bicarb -Repeat basic metabolic profile in a.m. Anemia and thrombocytosis -Possibly chemotherapy associated along with iron deficiency anemia. Iron saturation 02/21/21 was 15 -Start oral iron replacement DVT prophylaxis: lovenox Discussed with: patient, nursing Anticipated discharge: 1-[address]: home A total of 35 minutes was spent on the care of this complex patient more than 50% of the time was spent in counseling and care coordination. Objective - Vital Signs Vital signs: Vital Signs Temp 97.7 F 05/03/21 12:41 Pulse 100 05/03/21 16:30 Resp 19 05/03/21 12:41 BP 101/60 05/03/21 12:41 Pulse Ox 93 L 05/03/21 12:41 Intake & Output 05/02/21 05/03/21 05/03/21 18:59 06:59 18:59 Intake Total 650 Balance 650 Weight 49.895 kg Intake: Intake, IV Titration 450 Amount Dextrose 5% in Water 1, 450 000 ml @ 50 mls/hr IV . Q23H JASON with Sodium Bicarb (1 Meq/ml) 150 ml Rx#:[id number] Oral 200 Other: # Voids 1 - Labs CBC & Chem 7: 05/03/21 05:50 05/03/21 05:50 Labs: Abnormal Lab Results - Last 24 Hours (Table) 05/03/21 05/03/21 Range/Units 05:50 05:50 RBC 2.41 L (4.30-5.90) m/uL Hgb 7.1 L (13.0-17.5) gm/dL Hct 23.0 L (39.0-53.0) % MCHC 30.7 L (31.0-37.0) g/dL RDW 16.5 H (11.5-15.5) % Lymphocytes # 0.3 L (1.0-4.8) k/uL Potassium 3.1 L (3.5-5.5) mmol/L Carbon Dioxide 16.3 L (21.6-31.8) mmol/L Anion Gap 13.20 H (4.00-12.00) mmol/L BUN 5.4 L (9.0-27.0) mg/dL BUN/Creatinine Ratio 8.81 L (12.00-20.00) Ratio Glucose 116 H (70-110) mg/dL Calcium 8.5 L (8.7-10.3) mg/dL Total Bilirubin <0.20 L (0.30-1.20) mg/dL AST 13 L (14-35) U/L ALT 7 L (10-49) U/L Alkaline Phosphatase 130 H (41-126) U/L Total Protein 4.9 L (6.2-8.2) g/dL Albumin 2.5 L (3.8-4.9) g/dL Albumin/Globulin Ratio 1.04 L (1.60-3.17) g/dL Microbiology - Last 24 Hours (Table) 05/01/21 13:25 Blood Culture - Preliminary Blood No Growth after 48 hours 05/01/21 13:25 Blood Culture - Preliminary Blood No Growth after 48 hours
[2021-05-03] MEDS: FERROUS SULFATE 325 MG TAB PO SCH (17:05)
--- NOTE | 2021-05-03 17:53 | P.CONS ---
History of Present Illness - Reason for Consult Consult date: 05/03/21 post chemo Requesting physician: Janet Castro - Chief Complaint SOB on exertion, weak - History of Present Illness Mr Meek is a pleasant malept of Dr. Alvarado, initially seen in consult [facility] 02/21/21 when he presented with c/o of progressive chest and back pain as well as hemoptysis. He had known chronic back pain due to DJD and he was having some increased symptoms in the left paraspinal area. In addition, he had developed upper chest pain over the past few weeks off and on and then subsequently started to have hemoptysis over the past few days leading to admission. CXR and CTA of the chest revealed a 6.4 x 5 cm right superior mediastinal mass as well as a suspicious 1.8 cm left adrenal lesion. There were some scattered nodules in both lungs. Pulmonary medicine performed bronchoscopy on 02/21/21, visible abnormality in the distal lateral wall of the trachea and in the subcarina, biopsies pathologic impression indicating likely adenocarcinoma. MRI of the brain was negative. Was seen for first office visit on 03/07/21, staging PET scan showed the mediastinal mass to be 7.5 x 6.5 cm, hypermetabolic with SUV 13.1. The left adrenal mass was 2.8 x 2.4 cm with SUV 5.49. Other lung nodules were negative, no other sites of disease noted. 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 Pt was finally seen in follow-up 03/30/21. The case was extensively discussed with him. He appeared to have only one suspicious area for metastasis in the left adrenal gland, it was strongly recommended that he have a biopsy of the same. This was scheduled for him at [facility]. As he was having hemoptysis, he was recommended to start radiation for his lung disease with a plan to try to definitively address the left adrenal if the biopsy did confirm this to be malignant. The patient however was unable to comply with most of our above recommendations. He canceled the biopsy of the adrenal gland. He did ultimately see Radiation On cology. Chemotherapy was ordered for him, but he decided not to do chemotherapy and opted for radiation alone. He started that in the 3rd week of Mar. He was admitted to the hospital in the last week of Mar with shortness of breath, and failure to thrive, also had hypercalcemia. He did improve with treatment for COPD exacerbation/pneumonia/hypercalcemia and supportive care. He was seen in c onsult during that visit and options, pros and cons and prognosis were discussed in detail with him again. At that time the patient stated that he didn't want to continue radiation but did not want to make any decisions regarding systemic therapy until after discharge. He was seen 04/24/21, post discharge he did resume radiation, he had improvement in symptoms, including resolution of hemoptysis. He had his 1st weekly carbo/taxol 04/27/21 with concurrent XRT. He states increased pulm secretions but little expcetoration, no recent hemoptysis, he "can't breathe", is not on O2 at home, can't walk to bathroom wihtout getting SOB, he denies fevers, N,V, chest pain, diarrhea or constipation. He states other then the breathing he has "been fine", feels he tolerated chemo well. Review of Systems 10 point ROS is neg except as stated in HPI Past Medical History Past Medical History: Cancer, COPD, Hypertension Additional Past Medical History / Comment(s): degenerative arthritis, alcoholism History of Any Multi-Drug Resistant Organisms: None Reported Past Surgical History: Ear Surgery Past Anesthesia/Blood Transfusion Reactions: No Reported Reaction Past Psychological History: Anxiety Smoking Status: Current every day smoker Past Alcohol Use History: Occasional Past Drug Use History: None Reported - Past Family History Family Additional Family Medical History / Comment(s): Pancreatic cancer runs in the family Medications and Allergies Home Medications Medication Instructions Recorded Confirmed Type Gabapentin 600 mg PO TID 03/13/17 05/01/21 History ALPRAZolam [Xanax] 0.25 - 5 mg PO TID PRN 02/20/21 05/01/21 History Benzonatate [Tessalon Perles] 100 mg PO TID PRN #90 cap 02/22/21 05/01/21 Rx Cyanocobalamin [Vitamin B-12] 500 mcg PO DAILY 05/01/21 05/01/21 History Folic Acid 1 mg PO DAILY 05/01/21 05/01/21 History Ibuprofen [Motrin] 800 mg PO Q8H PRN 05/01/21 05/01/21 History Megestrol [Megace] 800 mg PO DAILY 05/01/21 05/01/21 History Naloxone HCl [Narcan] 4 mg NASAL ONCE PRN 05/01/21 05/01/21 History Ondansetron [Zofran] 4 mg PO Q8HR PRN 05/01/21 05/01/21 History Polyethylene Glycol 3350 [Miralax] 17 gm PO DAILY PRN 05/01/21 05/01/21 History Sennosides [Senna] 8.6 mg PO DAILY PRN 05/01/21 05/01/21 History fentaNYL 75MCG/HR PATCH [Duragesic 1 patch TRANSDERM Q72H 05/01/21 05/01/21 History 75MCG/HR] oxyCODONE-APAP 10-325MG [Percocet 2 tab PO Q6H PRN 05/01/21 05/01/21 History 10-325 mg] Allergies Allergy/AdvReac Type Severity Reaction Status Date / Time No Known Allergies Allergy Verified 05/01/21 14:35 Physical Exam Vitals: Vital Signs Temp Pulse Pulse Resp BP BP Pulse Ox 05/03/21 06:37 100 05/03/21 06:20 100 05/03/21 04:14 99.6 F 99 20 98/63 95 05/03/21 01:32 100 05/03/21 01:23 96 05/02/21 19:55 100 05/02/21 19:51 98.8 F 105 H 18 108/63 99 05/02/21 19:40 96 05/02/21 19:00 97.5 F L 97 20 120/75 92 L 05/02/21 16:00 97.8 F 105 H 131/72 99 05/02/21 15:24 100 05/02/21 15:10 100 05/02/21 13:00 97.8 F 92 17 126/69 97 05/02/21 11:28 98 05/02/21 11:16 98 Intake and Output 05/02/21 05/03/21 05/03/21 22:59 06:59 14:59 Intake Total 200 450 Balance 200 450 Intake: Intake, IV Titration 450 Amount Dextrose 5% in Water 1, 450 000 ml @ 50 mls/hr IV . Q23H JASON with Sodium Bicarb (1 Meq/ml) 150 ml Rx#:[id number] Oral 200 Other: # Voids 1 - Constitutional General appearance: cooperative, no acute distress, thin - EENT Eyes: anicteric sclerae, EOMI, poor dentition ENT: hearing grossly normal, normal oropharynx - Neck Neck: no lymphadenopathy - Respiratory Respiratory: bilateral: diminished - Cardiovascular Rhythm: regular Heart sounds: normal: S1, S2 Abnormal Heart Sounds: no systolic murmur, no diastolic murmur, no rub, no S3 G allop, no S4 Gallop, no click, no other leg Peripheral Edema: bilateral: None - Gastrointestinal General gastrointestinal: no absent bowel sounds, no decreased bowel sounds, no distended, no hepatomegaly, no hyperactive bowel sounds, normal bowel sounds, no organomegaly, no rigid, no scaphoid, soft, no splenomegaly, no tenderness, no umbilical hernia, no ventral hernia - Neurologic Neurologic: CNII-XII intact - Musculoskeletal Musculoskeletal: generalized weakness, strength equal bilaterally - Psychiatric Psychiatric: A&O x's 3, appropriate affect, intact judgment & insight Results CBC & Chem 7: 05/03/21 05:50 05/03/21 05:50 Labs: Abnormal Lab Results - Last 24 Hours (Table) 05/03/21 Range/Units 05:50 RBC 2.41 L (4.30-5.90) m/uL Hgb 7.1 L (13.0-17.5) gm/dL Hct 23.0 L (39.0-53.0) % MCHC 30.7 L (31.0-37.0) g/dL RDW 16.5 H (11.5-15.5) % Lymphocytes # 0.3 L (1.0-4.8) k/uL Microbiology - Last 24 Hours (Table) 05/01/21 13:25 Blood Culture - Preliminary Blood No Growth after 24 hours 05/01/21 13:25 Blood Culture - Preliminary Blood No Growth after 24 hours Chest x-ray: report reviewed CT scan - abdomen: report reviewed CT scan - chest: report reviewed CT scan - pelvis: report reviewed Assessment and Plan (1) Dyspnea Narrative/Plan: 2/2 disease and COPD. Pt being treated for COPD exacerbation. Have requested home O2 evaluation Current Visit: Yes Status: Acute Priority: High Code(s): R06.00 - DYSPNEA, UNSPECIFIED SNOMED Code(s): 858695979 (2) Anemia Narrative/Plan: Pt was anemic before starting chemo. He is folate deficient and low normal B12- he is supplemented. He did have low normal iron studies and saturation, he is supplemented. Transfuse for Hgb<7 or if symptomatic. Current Visit: Yes Status: Acute Priority: Medium Code(s): D64.9 - ANEMIA, UNSPECIFIED SNOMED Code(s): 053654931 (3) Generalized weakness Narrative/Plan: 2/2 disease, poor resp status. PT/OT ordered Current Visit: Yes Status: Acute Priority: High Code(s): R53.1 - WEAKNESS SNOMED Code(s): 12055602 (4) Metastatic lung cancer (metastasis from lung to other site) Current Visit: Yes Status: Acute Code(s): C34.90 - MALIGNANT NEOPLASM OF UNSP PART OF UNSP BRONCHUS OR LUNG SNOMED Code(s): 28247460 Plan: attests: I have seen and examined pt, performed H&P, developed impression and plan of care. Discussed with dictator. Agree with documentation, documented as a scribe.
[2021-05-03] MEDS: guaiFENesin 600 MG TABLET.ER PO SCH (20:37)
[2021-05-04] MEDS: IPRATROPIUM-ALBUTEROL 3 ML NEB INHALATION SCH ×7 (00:12→23:17)
[2021-05-04] MEDS: ALPRAZolam 0.5 MG TAB PO PRN ×3 (00:17→20:10)
[2021-05-04] MEDS: MORPHINE SULFATE 2 MG/ML SYRINGE IVP PRN ×2 (03:38→20:07)
[2021-05-04] MEDS: CYCLOBENZAPRINE 5 MG TAB PO PRN ×2 (05:03→12:37)
[2021-05-04] MEDS: BENZONATATE 100 MG CAP PO PRN (05:03)
[2021-05-04 07:48] LABS: Anisocytosis Slight; HCT 21.9 % (39.0-53.0); Hypochromasia Slight; MCH 29.6 pg (25.0-35.0); MCHC 31.8 g/dL (31.0-37.0); MCV 93.1 fL (80.0-100.0); Mean Platelet Volume 7.3; Platelet Count 354 k/uL (150-450); RBC 2.35 m/uL (4.30-5.90); RDW 16.9 % (11.5-15.5); WBC 5.8 k/uL (3.8-10.6)
[2021-05-04] MEDS: ENOXAPARIN 40 MG/0.4 ML SYRINGE SQ SCH (08:20)
[2021-05-04] MEDS: guaiFENesin 600 MG TABLET.ER PO SCH ×2 (08:21→20:10)
[2021-05-04] MEDS: GABAPENTIN 300 MG CAP PO SCH ×3 (08:21→20:10)
[2021-05-04] MEDS: oxyCODONE-APAP 10-325MG 1 EACH TAB PO PRN ×2 (08:21→15:03)
[2021-05-04] MEDS: FOLIC ACID 1 MG TAB PO SCH (08:21)
[2021-05-04] MEDS: FERROUS SULFATE 325 MG TAB PO SCH ×2 (08:21→18:19)
[2021-05-04] MEDS: MEGESTROL 400 MG/10 ML CUP PO SCH (08:21)
[2021-05-04] MEDS: AZITHROMYCIN 500 MG in SODIUM CHLORIDE 0.9% 250 ML IVPB SCH (09:11)
[2021-05-04 11:02] LABS: African American GFR (CKD) 125.8 (60.0-200.0); Anion Gap 10.9 mmol/L (4.00-12.00); BUN/Creat Ratio 8.67 Ratio (12.00-20.00); Blood Urea Nitrogen 5.2 mg/dL (9.0-27.0); Calcium 8.4 mg/dL (8.7-10.3); Carbon Dioxide 20.1 mmol/L (21.6-31.8); Magnesium 1.8 mg/dL (1.5-2.4); Non-African American GFR(CKD) 108.5 (60.0-200.0); Potassium 3.5 mmol/L (3.5-5.5)
[2021-05-04] MEDS: DEXTROSE 5% IN WATER 1,000 ML with SODIUM BICARB (1 MEQ/ML) 150 ML IV SCH (15:05)
--- NOTE | 2021-05-04 18:35 | XR ---
6 EXAMINATION TYPE: XR chest 2V DATE OF EXAM: 05/04/2021 COMPARISON: 05/01/2021 HISTORY: Shortness of breath TECHNIQUE: Frontal and lateral views of the chest are obtained. FINDINGS: Scattered senescent parenchymal changes noted. Hyperinflation compatible with COPD. No evidence for infiltrate. No evidence for atelectasis. Nodular density left upper lobe, right midlu ng zone and right apical region persists. Heart size is stable. Right paratracheal mass is redemonstrated. No evidence for hilar prominence. Degenerative changes dorsal spine. IMPRESSION: 1. Stable chest.
--- NOTE | 2021-05-04 18:51 | P.PN ---
Subjective Progress Note Date: 05/04/21 60-year-old male with a history of lung cancer with recent initiation of chemotherapy last week, COPD, and hypertension who presented to the ER complaints of nausea and vomiting. He underwent a CTA of the chest which showed a large mediastinal mass consistent with tumor, left upper lobe stellar infiltrate, enlarged adrenal gland consistent with metastatic disease, and a possible pathologic fracture of the right fourth rib, as well as bilateral multiple areas of mild pulmonary infiltrates. CT abdomen and pelvis showed large bilateral adrenal masses, mild fibrotic left lung base, and adrenal masses significantly increased in size compared 03/02/21 consistent with tumor progression. Patient seen and assessed, extremely concerned about cough and difficulty and pain with coughing. No worsening of shortness of breath except what he already has, no chest pain. Appropriate counseling done at bedside Objective - Vital Signs Vital signs: Vital Signs Temp 97.8 F 05/04/21 11:45 Pulse 96 05/04/21 16:27 Resp 17 05/04/21 11:45 BP 109/67 05/04/21 11:45 Pulse Ox 97 05/04/21 11:45 Intake & Output 05/03/21 05/04/21 05/04/21 18:59 06:59 18:59 Intake Total 900 900 Balance 900 900 Weight 49.895 kg Intake: Intake, IV Titration 900 900 Amount Azithromycin 500 mg In 250 250 Sodium Chloride 0.9% 250 ml @ 250 mls/hr IVPB DAILY JASON Rx#:[id number] Dextrose 5% in Water 1, 600 600 000 ml @ 50 mls/hr IV . Q23H JASON with Sodium Bicarb (1 Meq/ml) 150 ml Rx#:[id number] cefTRIAXone 1 gm In 50 50 Sodium Chloride 0.9% 50 ml @ 100 mls/hr IVPB DAILY JASON Rx#:[id number] Other: # Voids 4 1 General: Ill appearing, mild distress, appears at stated age Derm: warm, dry Head: atraumatic, normocephalic, symmetric Mouth: no lip lesion, mucus membranes moist Cardiovascular: S1S2 reg, no murmur, positive posterior tibial pulse bilateral, Lungs: Coarse breath sounds bilateral, no rhonchi, no rales , no accessory muscle use Abdominal: soft, nontender to palpation, no guarding, no appreciable organomegaly Ext: no gross muscle atrophy, no edema, no contractures Neuro: CN II-XI grossly intact, no focal neuro deficits - Labs CBC & Chem 7: 05/04/21 06:30 05/04/21 06:30 Labs: Abnormal Lab Results - Last 24 Hours (Table) 05/04/21 05/04/21 Range/Units 06:30 06:30 RBC 2.35 L (4.30-5.90) m/uL Hgb 7.0 L (13.0-17.5) gm/dL Hct 21.9 L (39.0-53.0) % RDW 16.9 H (11.5-15.5) % Carbon Dioxide 20.1 L (21.6-31.8) mmol/L BUN 5.2 L (9.0-27.0) mg/dL BUN/Creatinine Ratio 8.67 L (12.00-20.00) Ratio Calcium 8.4 L (8.7-10.3) mg/dL Microbiology - Last 24 Hours (Table) 05/01/21 13:25 Blood Culture - Preliminary Blood No Growth after 72 hours 05/01/21 13:25 Blood Culture - Preliminary Blood No Growth after 72 hours Assessment and Plan Assessment: Lung cancer likely with metastases to adrenal gland Possible bilateral pneumonia, concern for healthcare associated pneumonia Pending blood culture, sputum culture We'll start patient on vancomycin and Zosyn, continue Zithromax Consulting primary medicine Consulting hospice care Oncology consulted and following. Right Rib fracture likely pathologic Pain management Severe protein malnutrition and cachexia BMI 16.7 -Dietitian recommendations -Nutritional supplementation Anemia and thrombocytosis -Possibly chemotherapy associated along with iron deficiency anemia. Iron saturation 02/21/21 was 15 -Start oral iron replacement DVT prophylaxis: lovenox CODE STATUS: Full code Discharge planning/next site of care: Pending hospital course likely expected for what is stated in the hospital, patient will benefit from rehab versus home with home health care.
[2021-05-04] MEDS ORDERED: VANCOMYCIN IV PER PHARMACY 1 EACH MISC MISCELLANE PRN (18:52)
[2021-05-04] MEDS ORDERED: VANCOMYCIN 750 MG in SODIUM CHLORIDE 0.9% 250 ML IVPB ONE (19:15)
[2021-05-04] MEDS: PIPERACILLIN-TAZOBACTAM 3.375 GM in SODIUM CHLORIDE 0.9% 100 ML IVPB SCH (21:22)
--- NOTE | 2021-05-04 21:23 | P.PN ---
Subjective Progress Note Date: 05/04/21 Principal diagnosis: Exacerbation COPD Feeling a bit better appears to have another exacerbation COPD, pulmonary following and supportive care continued Objective - Vital Signs Vital signs: Vital Signs Temp 97.8 F 05/04/21 11:45 Pulse 100 05/04/21 11:45 Resp 17 05/04/21 11:45 BP 109/67 05/04/21 11:45 Pulse Ox 97 05/04/21 11:45 Intake & Output 05/03/21 05/04/21 05/04/21 18:59 06:59 18:59 Intake Total 900 Balance 900 Weight 49.895 kg Intake: Intake, IV Titration 900 Amount Azithromycin 500 mg In 250 Sodium Chloride 0.9% 250 ml @ 250 mls/hr IVPB DAILY [facility] Rx#:[id number] Dextrose 5% in Water 1, 600 000 ml @ 50 mls/hr IV . Q23H [facility] with Sodium Bicarb (1 Meq/ml) 150 ml Rx#:[id number] cefTRIAXone 1 gm In 50 Sodium Chloride 0.9% 50 ml @ 100 mls/hr IVPB DAILY [facility] Rx#:[id number] Other: # Voids 4 1 - Exam - Constitutional General appearance: cooperative, no acute distress, thin - EENT Eyes: anicteric sclerae, EOMI, poor dentition ENT: hearing grossly normal, normal oropharynx - Neck Neck: no lymphadenopathy - Respiratory Respiratory: bilateral: diminished - Cardiovascular Rhythm: regular Heart sounds: normal: S1, S2 Abnormal Heart Sounds: no systolic murmur, no diastolic murmur, no rub, no S3 Gallop, no S4 Gallop, no click, no other leg Peripheral Edema: bilateral: None - Gastrointestinal General gastrointestinal: no absent bowel sounds, no decreased bowel sounds, no distended, no hepatomegaly, no hyperactive bowel sounds, normal bowel sounds, no organomegaly, no rigid, no scaphoid, soft, no splenomegaly, no tenderness, no umbilical hernia, no ventral hernia - Neurologic Neurologic: CNII-XII intact - Musculoskeletal Musculoskeletal: generalized weakness, strength equal bilaterally - Psychiatric Psychiatric: A&O x's 3, appropriate affect, intact judgment & insight - Labs CBC & Chem 7: 05/04/21 06:30 05/04/21 06:30 Labs: Abnormal Lab Results - Last 24 Hours (Table) 05/03/21 05/04/21 05/04/21 Range/Units 05:50 06:30 06:30 RBC 2.35 L (4.30-5.90) m/uL Hgb 7.0 L (13.0-17.5) gm/dL Hct 21.9 L (39.0-53.0) % RDW 16.9 H (11.5-15.5) % Potassium 3.1 L (3.5-5.5) mmol/L Carbon Dioxide 16.3 L 20.1 L (21.6-31.8) mmol/L Anion Gap 13.20 H (4.00-12.00) mmol/L BUN 5.4 L 5.2 L (9.0-27.0) mg/dL BUN/Creatinine Ratio 8.81 L 8.67 L (12.00-20.00) Ratio Glucose 116 H (70-110) mg/dL Calcium 8.5 L 8.4 L (8.7-10.3) mg/dL Total Bilirubin <0.20 L (0.30-1.20) mg/dL AST 13 L (14-35) U/L ALT 7 L (10-49) U/L Alkaline Phosphatase 130 H (41-126) U/L Total Protein 4.9 L (6.2-8.2) g/dL Albumin 2.5 L (3.8-4.9) g/dL Albumin/Globulin Ratio 1.04 L (1.60-3.17) g/dL Microbiology - Last 24 Hours (Table) 05/01/21 13:25 Blood Culture - Preliminary Blood No Growth after 48 hours 05/01/21 13:25 Blood Culture - Preliminary Blood No Growth after 48 hours Assessment and Plan Plan: Chest x-ray: report reviewed CT scan - abdomen: report reviewed CT scan - chest: report reviewed CT scan - pelvis: report reviewed Assessment and Plan (1) Dyspnea Narrative/Plan: - COPD exacerbation. - Plan for home O2 Current Visit: Yes Status: Acute Priority: High Code(s): R06.00 - DYSPNEA, UNSPECIFIED SNOMED Code(s): 534932004 (2) Anemia Narrative/Plan: - Transfuse <7 - Hemoglobin 7 today - CBC ordered for am Current Visit: Yes Status: Acute Priority: Medium Code(s): D64.9 - ANEMIA, UNSPECIFIED SNOMED Code(s): 469960683 (3) Generalized weakness Narrative/Plan: COntinue PT/OT Current Visit: Yes Status: Acute Priority: High Code(s): R53.1 - WEAKNESS SNOMED Code(s): 29029411 (4) Metastatic lung cancer (metastasis from lung to other site) Current Visit: Yes Status: Acute Code(s): C34.90 - MALIGNANT NEOPLASM OF UNSP PART OF UNSP BRONCHUS OR LUNG SNOMED Code(s): 16411288 - Concurrent Carbo/Taxol and Radiation Status Post week one. attests: I have seen and examined pt, performed H&P, developed impression and plan of care. Discussed with dictator. Agree with documentation, documented as a scribe.
[2021-05-04] MEDS: methylPREDNISolone SOD SUCCI 125 MG/2 ML VIAL IV SCH (23:46)
[2021-05-05] MEDS: IPRATROPIUM-ALBUTEROL 3 ML NEB INHALATION SCH ×5 (03:00→19:17)
[2021-05-05] MEDS: MORPHINE SULFATE 2 MG/ML SYRINGE IVP PRN ×4 (03:40→20:16)
[2021-05-05] MEDS: PIPERACILLIN-TAZOBACTAM 3.375 GM in SODIUM CHLORIDE 0.9% 100 ML IVPB SCH ×3 (04:02→22:38)
[2021-05-05] MEDS: oxyCODONE-APAP 10-325MG 1 EACH TAB PO PRN ×4 (05:12→22:45)
[2021-05-05] MEDS: VANCOMYCIN 750 MG in SODIUM CHLORIDE 0.9% 250 ML IVPB SCH ×3 (05:16→22:39)
[2021-05-05] MEDS: CYCLOBENZAPRINE 5 MG TAB PO PRN ×2 (05:20→22:47)
[2021-05-05 06:54] LABS: African American GFR (CKD) >90 (>60 ml/min/1.73 sqM); Non-African American GFR(CKD) >90 (>60 ml/min/1.73 sqM)
[2021-05-05] MEDS: GABAPENTIN 300 MG CAP PO SCH ×3 (09:13→22:40)
[2021-05-05] MEDS: ENOXAPARIN 40 MG/0.4 ML SYRINGE SQ SCH (09:13)
[2021-05-05] MEDS: FOLIC ACID 1 MG TAB PO SCH (09:14)
[2021-05-05] MEDS: guaiFENesin 600 MG TABLET.ER PO SCH ×2 (09:14→22:40)
[2021-05-05] MEDS: FERROUS SULFATE 325 MG TAB PO SCH ×2 (09:14→17:19)
[2021-05-05] MEDS: MEGESTROL 400 MG/10 ML CUP PO SCH (09:15)
[2021-05-05] MEDS: AZITHROMYCIN 500 MG in SODIUM CHLORIDE 0.9% 250 ML IVPB SCH (09:15)
[2021-05-05] MEDS: methylPREDNISolone SOD SUCCI 125 MG/2 ML VIAL IV SCH ×3 (09:15→23:41)
[2021-05-05] MEDS: DEXTROSE 5% IN WATER 1,000 ML with SODIUM BICARB (1 MEQ/ML) 150 ML IV SCH (11:48)
--- NOTE | 2021-05-05 17:53 | P.PN ---
Subjective Progress Note Date: 05/05/21 60-year-old male with a history of lung cancer with recent initiation of chemotherapy last week, COPD, and hypertension who presented to the ER complaints of nausea and vomiting. He underwent a CTA of the chest which showed a large mediastinal mass consistent with tumor, left upper lobe stellar infiltrate, enlarged adrenal gland consistent with metastatic disease, and a possible pathologic fracture of the right fourth rib, as well as bilateral multiple areas of mild pulmonary infiltrates. CT abdomen and pelvis showed large bilateral adrenal masses, mild fibrotic left lung base, and adrenal masses significantly increased in size compared 03/02/21 consistent with tumor progression. Patient seen and assessed, extremely concerned about cough and difficulty and pain with coughing. No worsening of shortness of breath except what he already has, no chest pain. Appropriate counseling done at bedside Objective - Vital Signs Vital signs: Vital Signs Temp 98 F 05/05/21 11:50 Pulse 98 05/05/21 11:50 Resp 18 05/05/21 11:50 BP 112/70 05/05/21 11:50 Pulse Ox 98 05/05/21 11:50 Intake & Output 05/04/21 05/05/21 05/05/21 18:59 06:59 18:59 Intake Total 900 1200 1200 Output Total 1000 Balance 900 1200 200 Weight 49.895 kg Intake: Intake, IV Titration [phone] Amount Azithromycin 500 mg In 250 250 Sodium Chloride 0.9% 250 ml @ 250 mls/hr IVPB DAILY [facility] Rx#:[id number] Dextrose 5% in Water 1, 600 500 600 000 ml @ 50 mls/hr IV . Q23H [facility] with Sodium Bicarb (1 Meq/ml) 150 ml Rx#:[id number] Piperacillin-Tazobactam 3 100 100 .375 gm In Sodium Chloride 0.9% 100 ml @ 25 mls/hr IVPB Q8H [facility] Rx#: [id number] Vancomycin 750 mg In 250 250 Sodium Chloride 0.9% 250 ml @ 125 mls/hr IVPB Q8H [facility] Rx#:[id number] cefTRIAXone 1 gm In 50 Sodium Chloride 0.9% 50 ml @ 100 mls/hr IVPB DAILY [facility] Rx#:[id number] Oral 350 Output: Urine 1000 Other: # Voids 1 # Bowel Movements 0 General: Ill appearing, mild distress, appears at stated age Derm: warm, dry Head: atraumatic, normocephalic, symmetric Mouth: no lip lesion, mucus membranes moist Cardiovascular: S1S2 reg, no murmur, positive posterior tibial pulse bilateral, Lungs: Coarse breath sounds bilateral, no rhonchi, no rales , no accessory muscle use Abdominal: soft, nontender to palpation, no guarding, no appreciable organomegaly Ext: no gross muscle atrophy, no edema, no contractures Neuro: CN II-XI grossly intact, no focal neuro deficits - Labs CBC & Chem 7: 05/06/21 05:20 05/05/21 06:14 Labs: Abnormal Lab Results - Last 24 Hours (Table) 05/05/21 Range/Units 06:14 Creatinine 0.51 L (0.66-1.25) mg/dL Microbiology - Last 24 Hours (Table) 05/01/21 13:25 Blood Culture - Preliminary Blood No Growth after 96 hours 05/01/21 13:25 Blood Culture - Preliminary Blood No Growth after 96 hours Assessment and Plan Assessment: Lung cancer likely with metastases to adrenal gland Possible bilateral pneumonia, concern for healthcare associated pneumonia Pending blood culture, sputum culture We'll start patient on vancomycin and Zosyn, continue Zithromax Discussed with patient , patient clinical condition and debility makes him a poor candidate for further chemotherapy, patient has been having waxing and waning mental status, discussed the patient that once we discuss this case with oncology and evaluate his prognosis hospice /palliative radiation can be considered Oncology consulted and following. Right Rib fracture likely pathologic Pain management Severe protein malnutrition and cachexia BMI 16.7 -Dietitian recommendations -Nutritional supplementation Anemia and thrombocytosis -Possibly chemotherapy associated along with iron deficiency anemia. Iron saturation 02/21/21 was 15 -Start oral iron replacement DVT prophylaxis: lovenox CODE STATUS: Full code Discharge planning/next site of care: Pending hospital course likely expected for what is stated in the hospital, patient will benefit from rehab versus home with home health care.
[2021-05-05] MEDS: ALPRAZolam 0.5 MG TAB PO PRN (22:47)
[2021-05-06] MEDS: MORPHINE SULFATE 2 MG/ML SYRINGE IVP PRN ×4 (01:18→21:16)
[2021-05-06] MEDS: BENZONATATE 100 MG CAP PO PRN ×2 (01:23→19:53)
[2021-05-06] MEDS ORDERED: VANCOMYCIN TROUGH DUE 1 EACH MISC MISCELLANE ONE (04:00)
[2021-05-06] MEDS: PIPERACILLIN-TAZOBACTAM 3.375 GM in SODIUM CHLORIDE 0.9% 100 ML IVPB SCH ×3 (04:07→20:14)
[2021-05-06] MEDS: oxyCODONE-APAP 10-325MG 1 EACH TAB PO PRN ×4 (04:17→22:17)
[2021-05-06] MEDS: IPRATROPIUM-ALBUTEROL 3 ML NEB INHALATION SCH ×7 (04:34→23:23)
[2021-05-06] MEDS: VANCOMYCIN 750 MG in SODIUM CHLORIDE 0.9% 250 ML IVPB SCH ×3 (05:25→21:16)
[2021-05-06 06:23] LABS: Anisocytosis Slight; Basophils % (A) 0 %; Eosinophils % (A) 0 %; HCT 23.3 % (39.0-53.0); HGB 7.5 gm/dL (13.0-17.5); Lymphocytes # (A) 0.2 k/uL (1.0-4.8); Lymphocytes % (A) 3 %; MCH 29.8 pg (25.0-35.0); MCHC 32.2 g/dL (31.0-37.0); MCV 92.6 fL (80.0-100.0); Mean Platelet Volume 7.5; Monocytes # (A) 0.2 k/uL (0-1.0); Monocytes % (A) 4 %; Neutrophils # (A) 5.5 k/uL (1.3-7.7); Neutrophils % (A) 92 %; Platelet Count 444 k/uL (150-450); RBC 2.52 m/uL (4.30-5.90); RDW 16.8 % (11.5-15.5)
[2021-05-06] MEDS: MEGESTROL 400 MG/10 ML CUP PO SCH (09:21)
[2021-05-06] MEDS: methylPREDNISolone SOD SUCCI 125 MG/2 ML VIAL IV SCH ×3 (09:21→23:47)
[2021-05-06] MEDS: FOLIC ACID 1 MG TAB PO SCH (09:21)
[2021-05-06] MEDS: AZITHROMYCIN 500 MG in SODIUM CHLORIDE 0.9% 250 ML IVPB SCH (09:21)
[2021-05-06] MEDS: ENOXAPARIN 40 MG/0.4 ML SYRINGE SQ SCH (09:21)
[2021-05-06] MEDS: GABAPENTIN 300 MG CAP PO SCH ×3 (09:21→21:16)
[2021-05-06] MEDS: FERROUS SULFATE 325 MG TAB PO SCH ×2 (09:21→17:52)
[2021-05-06] MEDS: guaiFENesin 600 MG TABLET.ER PO SCH ×2 (09:21→19:53)
[2021-05-06] MEDS: ALPRAZolam 0.5 MG TAB PO PRN ×2 (12:59→21:16)
[2021-05-06] MEDS: SENNOSIDES 8.6 MG TAB PO PRN (16:07)
[2021-05-06] MEDS: DEXTROSE 5% IN WATER 1,000 ML with SODIUM BICARB (1 MEQ/ML) 150 ML IV SCH (17:52)
--- NOTE | 2021-05-06 18:27 | P.PN ---
Subjective Progress Note Date: 05/06/21 60-year-old male with a history of lung cancer with recent initiation of chemotherapy last week, COPD, and hypertension who presented to the ER complaints altered mental status with waxing and waning mental status changes and significant weakness nausea and vomiting. Patient had a CTA of the chest which showed a large mediastinal mass consistent with tumor, left upper lobe stellar infiltrate, enlarged adrenal gland consistent with metastatic disease, and a possible pathologic fracture of the right fourth rib, as well as bilateral multiple areas of mild pulmonary infiltrates. CT abdomen and pelvis showed large bilateral adrenal masses, mild fibrotic left lung base, and adrenal masses significantly increased in size compared 03/02/21 As mentioned above Patient recently started on chemotherapy, previously completed radiotherapy. He is still smoking, patient after first dose of chemotherapy got sick with CPD exacerbation and healthcare associated pneumonia, therefore presented to the hospital and is currently being treated for COPD exacerbation and healthcare associated pneumonia. I communicated with family in detail my discussion with oncology, per Kendall lawson with oncology, no plans for hospice at this time, once patient is clinically better and to continue chemotherapy. We will discontinue hospice evaluation for the time being, patient to continue discuss treatment options with oncology as an outpatient. This was communicated with family and nursing staff on the evening of 05/06/2021. Patient seen at bedside, he is much better , shortness of breath and chest pain improved and overall debility also improved, family present at bedside. Objective - Vital Signs Vital signs: Vital Signs Temp 97.6 F 05/06/21 13:14 Pulse 90 05/06/21 16:56 Resp 18 05/06/21 13:14 BP 117/70 05/06/21 13:14 Pulse Ox 90 L 05/06/21 13:14 Intake & Output 05/05/21 05/06/21 05/06/21 18:59 06:59 18:59 Intake Total 1200 480 Output Total 1000 Balance 200 480 Intake: Intake, IV Titration 1200 Amount Azithromycin 500 mg In 250 Sodium Chloride 0.9% 250 ml @ 250 mls/hr IVPB DAILY [facility] Rx#:[id number] Dextrose 5% in Water 1, 600 000 ml @ 50 mls/hr IV . Q23H [facility] with Sodium Bicarb (1 Meq/ml) 150 ml Rx#:[id number] Piperacillin-Tazobactam 3 100 .375 gm In Sodium Chloride 0.9% 100 ml @ 25 mls/hr IVPB Q8H [facility] Rx#: [id number] Vancomycin 750 mg In 250 Sodium Chloride 0.9% 250 ml @ 125 mls/hr IVPB Q8H [facility] Rx#:[id number] Oral 480 Output: Urine 1000 Other: # Voids 1 # Bowel Movements 0 General: non toxic, no acute distress, alert oriented to time place and person Head: atraumatic, normocephalic, symmetric Eyes: no lid lesion], anicteric sclera Mouth: no lip lesion, mucus membranes moist Cardiovascular: S1S2 reg rate and rhythm, no murmur, no gallop Lungs: Bilateral equal air entry, no wheezing no rhonchi no crackles. Abdominal: soft, nontender to palpation, no guarding, no appreciable organomegaly Ext: no gross muscle atrophy, no edema extremities warm to suppose a positive Neuro: Alert oriented to time place and person, exam grossly nonfocal Psych: Mood and affect appropriate, patient not so certain Skin exam: No rashes no jaundice. - Labs CBC & Chem 7: 05/06/21 05:20 05/05/21 06:14 Labs: Abnormal Lab Results - Last 24 Hours (Table) 05/06/21 Range/Units 05:20 RBC 2.52 L (4.30-5.90) m/uL Hgb 7.5 L (13.0-17.5) gm/dL Hct 23.3 L (39.0-53.0) % RDW 16.8 H (11.5-15.5) % Lymphocytes # 0.2 L (1.0-4.8) k/uL Microbiology - Last 24 Hours (Table) 05/01/21 13:25 Blood Culture - Preliminary Blood No Growth after 120 hours 05/01/21 13:25 Blood Culture - Preliminary Blood No Growth after 120 hours Assessment and Plan Assessment: Acute hypoxic respiratory failure, COPD exacerbation and healthcare associated pneumonia CPD exacerbation with healthcare associated pneumonia Continue broad-spectrum antibiotic, azithromycin Sputum culture pending Continue Solu-Medrol Continue bronchodilator treatment 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 We'll check MRI head with contrast to rule out any metastasis to brain Discussed with oncology in detail, once patient is clinically better and to continue chemotherapy. No plan for hospice at this point from oncology We'll discontinue hospice evaluation for the time being, patient to continue discuss treatment options with oncology as an outpatient, this was discussed with patient's family in detail at bedside. Right Rib fracture likely pathologic Pain management Severe protein malnutrition and cachexia BMI 16.7 -Dietitian recommendations -Nutritional supplementation Anemia and thrombocytosis -Possibly chemotherapy associated along with iron deficiency anemia. Iron saturation 02/21/21 was 15 -Start oral iron replacement DVT prophylaxis: lovenox CODE STATUS: Full code Discharge planning/next site of care: Pending hospital course likely expected for what is stated in the hospital, patient will benefit from rehab versus home with home health care.
[2021-05-07] MEDS: MORPHINE SULFATE 2 MG/ML SYRINGE IVP PRN ×5 (01:16→23:30)
[2021-05-07] MEDS: PIPERACILLIN-TAZOBACTAM 3.375 GM in SODIUM CHLORIDE 0.9% 100 ML IVPB SCH ×3 (03:58→21:08)
[2021-05-07] MEDS: IPRATROPIUM-ALBUTEROL 3 ML NEB INHALATION SCH ×6 (04:44→23:28)
[2021-05-07] MEDS: oxyCODONE-APAP 10-325MG 1 EACH TAB PO PRN ×4 (05:03→23:28)
[2021-05-07] MEDS: VANCOMYCIN 750 MG in SODIUM CHLORIDE 0.9% 250 ML IVPB SCH ×3 (05:03→21:08)
[2021-05-07] MEDS: BENZONATATE 100 MG CAP PO PRN ×2 (05:03→21:09)
[2021-05-07] MEDS: FERROUS SULFATE 325 MG TAB PO SCH ×2 (07:34→17:06)
[2021-05-07] MEDS: GABAPENTIN 300 MG CAP PO SCH ×3 (07:34→21:09)
[2021-05-07] MEDS: FOLIC ACID 1 MG TAB PO SCH (07:34)
[2021-05-07] MEDS: MEGESTROL 400 MG/10 ML CUP PO SCH (07:35)
[2021-05-07] MEDS: ENOXAPARIN 40 MG/0.4 ML SYRINGE SQ SCH (07:35)
[2021-05-07] MEDS: ALPRAZolam 0.5 MG TAB PO PRN ×2 (07:35→15:41)
[2021-05-07] MEDS: methylPREDNISolone SOD SUCCI 125 MG/2 ML VIAL IV SCH ×3 (07:35→23:29)
[2021-05-07] MEDS: guaiFENesin 600 MG TABLET.ER PO SCH ×2 (07:35→21:09)
[2021-05-07] MEDS: DEXTROSE 5% IN WATER 1,000 ML with SODIUM BICARB (1 MEQ/ML) 150 ML IV SCH ×2 (07:36→17:43)
[2021-05-07 08:03] LABS: Anisocytosis Slight; Basophils % (A) 0 %; Eosinophils % (A) 0 %; HCT 24.6 % (39.0-53.0); HGB 7.4 gm/dL (13.0-17.5); Hypochromasia Marked; Lymphocytes # (A) 0.1 k/uL (1.0-4.8); Lymphocytes % (A) 2 %; MCH 29.1 pg (25.0-35.0); MCHC 30.1 g/dL (31.0-37.0); MCV 96.9 fL (80.0-100.0); Macrocytosis Slight; Mean Platelet Volume 7.4; Monocytes # (A) 0.2 k/uL (0-1.0); Monocytes % (A) 4 %; Neutrophils # (A) 5.3 k/uL (1.3-7.7); Neutrophils % (A) 92 %; Platelet Count 427 k/uL (150-450); RBC 2.54 m/uL (4.30-5.90); RDW 16.6 % (11.5-15.5); WBC 5.8 k/uL (3.8-10.6)
--- NOTE | 2021-05-07 11:14 | MR ---
EXAMINATION TYPE: MR brain wo/w con DATE OF EXAM: 05/07/2021 COMPARISON: HISTORY: Mets to brain, rule out, history of lung ca TECHNIQUE: Multiplanar, multisequence images of the brain and brainstem is performed without and with IV contras t, utilizing 5 mL intravenous Gadavist . FINDINGS: Diffusion weighted images demonstrate no evidence of a recent infarct or other diffusion ab normality. There is no extra-axial fluid collection or significant change in white matter signal abn ormality. The ventricular system and cisternal spaces are normal in size and appearance. The brain volume is age appropriate. Midline structures demonstrate normal morphology. The craniocervical junction appears within normal limits. Post contrast images demonstrate no abnormal enhancement. The dural venous sinuses appear pa tent. The visualized sinuses are remarkable for inflammatory change the bilateral maxillary sinuses, ethmoid air cells, mastoid air cells on the right and the globes are intact. IMPRESSION: Stable brain exam, no acute brain abnormality. Sinus disease, mastoid air cell disease.
[2021-05-07 12:27] LABS: ALT 6 U/L (10-49); AST 12 U/L (14-35); Albumin 2.8 g/dL (3.8-4.9); Albumin/Globulin Ratio 1.08 (1.60-3.17); Alkaline Phosphatase 117 U/L (41-126); BUN/Creat Ratio 13.14 Ratio (12.00-20.00); Blood Urea Nitrogen 9.2 mg/dL (9.0-27.0); Calcium 8.3 mg/dL (8.7-10.3); Carbon Dioxide 19.4 mmol/L (21.6-31.8); Chloride 100 mmol/L (96-109); Globulin 2.6 g/dL (1.6-3.3); Glucose 115 mg/dL (70-110); Non-African American GFR(CKD) 101.9 (60.0-200.0); Potassium 3.3 mmol/L (3.5-5.5); Sodium 134 mmol/L (135-145); Total Bilirubin <0.20 mg/dL (0.30-1.20); Total Protein 5.4 g/dL (6.2-8.2)
--- NOTE | 2021-05-07 16:13 | P.PN ---
Subjective Progress Note Date: 05/07/21 Principal diagnosis: CC: SOB 60-year-old male with a history of lung cancer with recent initiation of chemotherapy last week, COPD, and hypertension who presented to the ER complaints altered mental status with waxing and waning mental status changes and significant weakness nausea and vomiting. Patient had a CTA of the chest which showed a large mediastinal mass consistent with tumor, left upper lobe stellar infiltrate, enlarged adrenal gland consistent with metastatic disease, and a possible pathologic fracture of the right fourth rib, as well as bilateral multiple areas of mild pulmonary infiltrates. CT abdomen and pelvis showed large bilateral adrenal masses, mild fibrotic left lung base, and adrenal masses significantly increased in size compared 03/02/21 As mentioned above Patient recently started on chemotherapy, previously completed radiotherapy. He is still smoking, patient after first dose of chemotherapy got sick with CPD exacerbation and healthcare associated pneumonia, therefore presented to the hospital and is currently being treated for COPD exacerbation and healthcare associated pneumonia. I communicated with family in detail my discussion with oncology, per Kendall medication with oncology, no plans for hospice at this time, once patient is clinically better and to continue chemotherapy. We will discontinue hospice evaluation for the time being, patient to continue discuss treatment options with oncology as an outpatient. This was communicated with family and nursing staff on the evening of 05/06/2021. Per patient he was told by oncology that he needs to stay in the hospital and receive IV antibiotics to Friday. Patient had home O2 eval done today and he was satting greater than 92%. Patient states that he is not comfortable going home. He states that he still feels short of breath. He states his breathing has improved slightly since admission. I spoke with the who said that hospital bed will arrive on Friday. She is also requesting to keep the patient until Friday. Objective - Vital Signs Vital signs: Vital Signs Temp 97.5 F L 05/07/21 15:30 Pulse 101 H 05/07/21 15:30 Resp 16 05/07/21 15:30 BP 114/74 05/07/21 15:30 Pulse Ox 95 05/07/21 15:30 Intake & Output 05/06/21 05/07/21 05/07/21 18:59 06:59 18:59 Intake Total 1490 Balance 1490 Intake: Intake, IV Titration 900 Amount Dextrose 5% in Water 1, 450 000 ml @ 50 mls/hr IV . Q23H [facility] with Sodium Bicarb (1 Meq/ml) 150 ml Rx#:[id number] Piperacillin-Tazobactam 3 200 .375 gm In Sodium Chloride 0.9% 100 ml @ 25 mls/hr IVPB Q8H [facility] Rx#: [id number] Vancomycin 750 mg In 250 Sodium Chloride 0.9% 250 ml @ 125 mls/hr IVPB Q8H [facility] Rx#:[id number] Oral 590 Other: # Voids 3 1 - Exam General examination - Alert and Oriented 3, appears chronically debilitated Heart - + S1S2 no murmurs Lungs - diminished breath sounds bilaterally Abdomen soft NT ND +ve BS Extremities - No edema [employer] - Moving all 4 extremities spontaneously Psych - Calm and cooperative - Labs CBC & Chem 7: 05/07/21 07:28 05/07/21 07:28 Labs: Abnormal Lab Results - Last 24 Hours (Table) 05/07/21 05/07/21 Range/Units 07:28 07:28 RBC 2.54 L (4.30-5.90) m/uL Hgb 7.4 L (13.0-17.5) gm/dL Hct 24.6 L (39.0-53.0) % MCHC 30.1 L (31.0-37.0) g/dL RDW 16.6 H (11.5-15.5) % Lymphocytes # 0.1 L (1.0-4.8) k/uL Sodium 134 L (135-145) mmol/L Potassium 3.3 L (3.5-5.5) mmol/L Carbon Dioxide 19.4 L (21.6-31.8) mmol/L Anion Gap 14.60 H (4.00-12.00) mmol/L Glucose 115 H (70-110) mg/dL Calcium 8.3 L (8.7-10.3) mg/dL Total Bilirubin <0.20 L (0.30-1.20) mg/dL AST 12 L (14-35) U/L ALT 6 L (10-49) U/L Total Protein 5.4 L (6.2-8.2) g/dL Albumin 2.8 L (3.8-4.9) g/dL Albumin/Globulin Ratio 1.08 L (1.60-3.17) g/dL Microbiology - Last 24 Hours (Table) 05/01/21 13:25 Blood Culture - Final Blood No Growth after 144 hours 05/01/21 13:25 Blood Culture - Final Blood No Growth after 144 hours 05/06/21 18:11 Gram Stain - Preliminary Sputum Sputum Culture - Preliminary Assessment and Plan Assessment: Acute hypoxic respiratory failure, COPD exacerbation and healthcare associated pneumonia COPD exacerbation with healthcare associated pneumonia Continue broad-spectrum antibiotic with IV vancomycin and Zosyn Sputum culture pending Continue Solu-Medrol Continue bronchodilator treatment Patient had home O2 eval on 05/07/2020 anyone and did not qualify for oxygen 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 MRI brain negative for metastasis Discussed with oncology in detail, once patient is clinically better and to continue chemotherapy. No plan for hospice at this point from oncology We'll discontinue hospice evaluation for the time being, patient to continue discuss treatment options with oncology as an outpatient, this was discussed with patient's family in detail at bedside. Right Rib fracture likely pathologic Pain management Severe protein malnutrition and cachexia BMI 16.7 -Dietitian recommendations -Nutritional supplementation Anemia and thrombocytosis -Possibly chemotherapy associated along with iron deficiency anemia. Iron s aturation 02/21/21 was 15 -Start oral iron replacement DVT prophylaxis: lovenox CODE STATUS: Full code Discharge planning/next site of care: Anticipate patient be ready for discharge in 2 days. He may need home care. has hospital bed set up to arrive on Friday.
[2021-05-07] MEDS ORDERED: POTASSIUM CHLORIDE ER 20 MEQ TAB.ER PO STA (17:29)
--- NOTE | 2021-05-07 19:51 | P.PN ---
Subjective Progress Note Date: 05/07/21 Principal diagnosis: COPD exacerbation In f/u today pt is "sniffing" his O2, when he feels he needs it, he is going to be having O2 evaluation with PT. He feels his breathing is more comfortable. Objective - Vital Signs Vital signs: Vital Signs Temp 98.3 F 05/07/21 04:53 Pulse 92 05/07/21 07:23 Resp 16 05/07/21 04:53 BP 115/69 05/07/21 04:53 Pulse Ox 97 05/07/21 07:17 Intake & Output 05/06/21 05/07/21 05/07/21 18:59 06:59 18:59 Intake Total 1490 Balance 1490 Intake: Intake, IV Titration 900 Amount Dextrose 5% in Water 1, 450 000 ml @ 50 mls/hr IV . Q23H [facility] with Sodium Bicarb (1 Meq/ml) 150 ml Rx#:[id number] Piperacillin-Tazobactam 3 200 .375 gm In Sodium Chloride 0.9% 100 ml @ 25 mls/hr IVPB Q8H [facility] Rx#: [id number] Vancomycin 750 mg In 250 Sodium Chloride 0.9% 250 ml @ 125 mls/hr IVPB Q8H [facility] Rx#:[id number] Oral 590 Other: # Voids 3 1 - Constitutional General appearance: Present: mild distress (pt holding NC and "sniffing" the O2 at 4L occasionally), thin - EENT Eyes: Present: anicteric sclerae, EOMI ENT: Present: hearing grossly normal - Respiratory Respiratory: bilateral: diminished (but CTA anterior and posterior) - Cardiovascular Rhythm: regular Heart sounds: normal: S1, S2 Abnormal Heart Sounds: Absent: systolic murmur, diastolic murmur, rub, S3 Gallop, S4 Gallop, click, other - Peripheral edema leg Peripheral Edema: right: Trace, left: 1+ - Gastrointestinal General gastrointestinal: Present: normal bowel sounds, soft - Neurologic Neurologic: Present: CNII-XII intact - Musculoskeletal Musculoskeletal: Present: generalized weakness - Psychiatric Psychiatric: Present: A&O x's 3, appropriate affect, intact judgment & insight - Labs CBC & Chem 7: 05/07/21 07:28 05/07/21 07:28 Labs: Abnormal Lab Results - Last 24 Hours (Table) 05/07/21 05/07/21 Range/Units 07:28 07:28 RBC 2.54 L (4.30-5.90) m/uL Hgb 7.4 L (13.0-17.5) gm/dL Hct 24.6 L (39.0-53.0) % MCHC 30.1 L (31.0-37.0) g/dL RDW 16.6 H (11.5-15.5) % Lymphocytes # 0.1 L (1.0-4.8) k/uL Sodium 134 L (135-145) mmol/L Potassium 3.3 L (3.5-5.5) mmol/L Carbon Dioxide 19.4 L (21.6-31.8) mmol/L Anion Gap 14.60 H (4.00-12.00) mmol/L Glucose 115 H (70-110) mg/dL Calcium 8.3 L (8.7-10.3) mg/dL Total Bilirubin <0.20 L (0.30-1.20) mg/dL AST 12 L (14-35) U/L ALT 6 L (10-49) U/L Total Protein 5.4 L (6.2-8.2) g/dL Albumin 2.8 L (3.8-4.9) g/dL Albumin/Globulin Ratio 1.08 L (1.60-3.17) g/dL Microbiology - Last 24 Hours (Table) 05/06/21 18:11 Gram Stain - Preliminary Sputum Sputum Culture - Preliminary 05/01/21 13:25 Blood Culture - Preliminary Blood No Growth after 120 hours 05/01/21 13:25 Blood Culture - Preliminary Blood No Growth after 120 hours Assessment and Plan (1) Dyspnea Narrative/Plan: 2/2 disease and COPD. Pt being treated for COPD exacerbation. Pending O2 evaluation Current Visit: Yes Status: Acute Priority: High Code(s): R06.00 - DYSPNEA, UNSPECIFIED SNOMED Code(s): 903325121 (2) Anemia Narrative/Plan: Pt was anemic before starting chemo. He is folate deficient and low normal B12- he is supplemented. He did have low normal iron studies and saturation, he is supplemented. Transfuse for Hgb<7 or if symptomatic. Current Visit: Yes Status: Acute Priority: Medium Code(s): D64.9 - ANEMIA, UNSPECIFIED SNOMED Code(s): 191880761 (3) Generalized weakness Narrative/Plan: 2/2 disease, poor resp status. PT/OT ordered Current Visit: Yes Status: Acute Priority: High Code(s): R53.1 - WEAKNESS SNOMED Code(s): 06667286 (4) Metastatic lung cancer (metastasis from lung to other site) Narrative/Plan: Pt had 1 weekly carbo/taxol and a few days of radiation. He has a f/u with Dr. Alvarado on the , will see if pt wants to proceed with any treatment. Current Visit: Yes Status: Acute Priority: Medium Code(s): C34.90 - MALIGNANT NEOPLASM OF UNSP PART OF UNSP BRONCHUS OR LUNG SNOMED Code(s): 62206938
[2021-05-08] MEDS: IPRATROPIUM-ALBUTEROL 3 ML NEB INHALATION SCH ×5 (03:48→20:06)
[2021-05-08] MEDS ORDERED: VANCOMYCIN TROUGH DUE 1 EACH MISC MISCELLANE ONE (04:00)
[2021-05-08] MEDS: MORPHINE SULFATE 2 MG/ML SYRINGE IVP PRN ×3 (04:08→19:23)
[2021-05-08] MEDS: PIPERACILLIN-TAZOBACTAM 3.375 GM in SODIUM CHLORIDE 0.9% 100 ML IVPB SCH ×3 (04:08→21:02)
[2021-05-08 04:48] LABS: African American GFR (CKD) >90 (>60 ml/min/1.73 sqM); Anion Gap 8 mmol/L; Blood Urea Nitrogen 11 mg/dL (9-20); Calcium 8.3 mg/dL (8.4-10.2); Carbon Dioxide 20 mmol/L (22-30); Chloride 105 mmol/L (98-107); Glucose 118 mg/dL (74-99); Non-African American GFR(CKD) >90 (>60 ml/min/1.73 sqM); Potassium 3.2 mmol/L (3.5-5.1); Sodium 133 mmol/L (137-145)
[2021-05-08] MEDS: VANCOMYCIN 750 MG in SODIUM CHLORIDE 0.9% 250 ML IVPB SCH ×3 (04:58→21:03)
[2021-05-08] MEDS: ALPRAZolam 0.5 MG TAB PO PRN ×2 (05:46→16:06)
[2021-05-08] MEDS: oxyCODONE-APAP 10-325MG 1 EACH TAB PO PRN ×3 (05:47→18:02)
[2021-05-08] MEDS: FERROUS SULFATE 325 MG TAB PO SCH ×2 (08:20→17:56)
[2021-05-08] MEDS: methylPREDNISolone SOD SUCCI 125 MG/2 ML VIAL IV SCH ×3 (08:20→23:35)
[2021-05-08] MEDS: MEGESTROL 400 MG/10 ML CUP PO SCH (10:11)
[2021-05-08] MEDS: guaiFENesin 600 MG TABLET.ER PO SCH ×2 (10:12→21:03)
[2021-05-08] MEDS: FOLIC ACID 1 MG TAB PO SCH (10:12)
[2021-05-08] MEDS: GABAPENTIN 300 MG CAP PO SCH ×3 (10:13→21:03)
[2021-05-08] MEDS: ENOXAPARIN 40 MG/0.4 ML SYRINGE SQ SCH (10:18)
--- NOTE | 2021-05-08 18:15 | P.PN ---
Subjective Progress Note Date: 05/08/21 Principal diagnosis: COPD exacerbation, NSCLC In f/u today pt cont to sniff his O2 when he feels he needs it-usually after ambulating. Today he is reporting fear, anxiety as he doesn't know what is going on. He feels his breathing is worse today. He did ambulate in the [facility] with a walker Objective - Vital Signs Vital signs: Vital Signs Temp 98.3 F 05/08/21 12:18 Pulse 84 05/08/21 15:02 Resp 18 05/08/21 12:18 BP 127/71 05/08/21 12:18 Pulse Ox 97 05/08/21 12:18 Intake & Output 05/07/21 05/08/21 05/08/21 18:59 06:59 18:59 Intake Total 950 Balance 950 Weight 49.895 kg Intake: Intake, IV Titration 950 Amount Dextrose 5% in Water 1, 600 000 ml @ 50 mls/hr IV . Q23H [facility] with Sodium Bicarb (1 Meq/ml) 150 ml Rx#:[id number] Piperacillin-Tazobactam 3 100 .375 gm In Sodium Chloride 0.9% 100 ml @ 25 mls/hr IVPB Q8H [facility] Rx#: [id number] Vancomycin 750 mg In 250 Sodium Chloride 0.9% 250 ml @ 125 mls/hr IVPB Q8H [facility] Rx#:[id number] Other: Voiding Method Toilet # Voids 3 - Constitutional General appearance: Present: cooperative, no acute distress, thin - EENT Eyes: Present: anicteric sclerae, EOMI ENT: Present: hearing grossly normal - Respiratory Respiratory: bilateral: diminished (throughout) - Cardiovascular Rhythm: regular Heart sounds: normal: S1, S2 Abnormal Heart Sounds: Absent: systolic murmur, diastolic murmur, rub, S3 Gallop, S4 Gallop, click, other - Peripheral edema leg Peripheral Edema: bilateral: 2+ - Gastrointestinal General gastrointestinal: Present: normal bowel sounds, soft - Neurologic Neurologic: Present: CNII-XII intact - Musculoskeletal Musculoskeletal: Present: generalized weakness, strength equal bilaterally - Psychiatric Psychiatric: Present: A&O x's 3, appropriate affect, intact judgment & insight - Labs CBC & Chem 7: 05/07/21 07:28 05/08/21 04:18 Labs: Abnormal Lab Results - Last 24 Hours (Table) 05/08/21 Range/Units 04:18 Sodium 133 L (137-145) mmol/L Potassium 3.2 L (3.5-5.1) mmol/L Carbon Dioxide 20 L (22-30) mmol/L Creatinine 0.51 L (0.66-1.25) mg/dL Glucose 118 H (74-99) mg/dL Calcium 8.3 L (8.4-10.2) mg/dL Microbiology - Last 24 Hours (Table) 05/06/21 18:11 Gram Stain - Final Sputum Sputum Culture - Final Amy albicans 05/01/21 13:25 Blood Culture - Final Blood No Growth after 144 hours 05/01/21 13:25 Blood Culture - Final Blood No Growth after 144 hours Assessment and Plan (1) Dyspnea Current Visit: Yes Status: Acute Priority: High Code(s): R06.00 - DYSPNEA, UNSPECIFIED SNOMED Code(s): 445887447 (2) Anemia Narrative/Plan: Pt was anemic before starting chemo. He is folate deficient and low normal B12- he is supplemented. He did have low normal iron studies and saturation, he is supplemented. Transfuse for Hgb<7 or if symptomatic. Current Visit: Yes Status: Acute Priority: Medium Code(s): D64.9 - ANEMIA, UNSPECIFIED SNOMED Code(s): 602782616 (3) Generalized weakness Narrative/Plan: 2/2 disease, poor resp status. PT/OT ordered and continues Current Visit: Yes Status: Acute Priority: High Code(s): R53.1 - WEAKNESS SNOMED Code(s): 54293327 (4) Metastatic lung cancer (metastasis from lung to other site) Narrative/Plan: Pt had 1 weekly carbo/taxol and a few days of radiation. He currently is still a candidate for treatment. Current Visit: Yes Status: Acute Priority: Medium Code(s): C34.90 - MALIGNANT NEOPLASM OF UNSP PART OF UNSP BRONCHUS OR LUNG SNOMED Code(s): 47480783 Plan: He needs to be educated on how to manage COPD. Pt kept saying that doesn't know what is going on. fI explained to him that is respiratory problems are from COPD and lung cancer. He needs to learn his limitations (how far can he walk, energy conservation), use assistive devices (talked about wheeled seated walker, handicap parking) and he needs to use his medications properly at home. We reviewed basic lung physiology and why he is SOB. At the end, pt once again stated that he had no idea what was going and what we were doing to help him. He cont on abx, antitussive, nebulizers and steroids.
[2021-05-08] MEDS: BENZONATATE 100 MG CAP PO PRN (21:03)
[2021-05-09] MEDS: oxyCODONE-APAP 10-325MG 1 EACH TAB PO PRN ×4 (00:06→17:42)
[2021-05-09] MEDS: IPRATROPIUM-ALBUTEROL 3 ML NEB INHALATION SCH ×6 (00:33→21:08)
[2021-05-09] MEDS: PIPERACILLIN-TAZOBACTAM 3.375 GM in SODIUM CHLORIDE 0.9% 100 ML IVPB SCH ×3 (03:55→21:02)
[2021-05-09] MEDS: MORPHINE SULFATE 2 MG/ML SYRINGE IVP PRN ×3 (03:55→19:29)
[2021-05-09] MEDS: VANCOMYCIN 750 MG in SODIUM CHLORIDE 0.9% 250 ML IVPB SCH ×3 (04:01→21:02)
[2021-05-09 06:22] LABS: Anisocytosis Slight; Basophils % (A) 0 %; Eosinophils % (A) 0 %; HCT 24.2 % (39.0-53.0); HGB 7.5 gm/dL (13.0-17.5); Hypochromasia Slight; Lymphocytes # (A) 0.1 k/uL (1.0-4.8); Lymphocytes % (A) 2 %; MCH 29.3 pg (25.0-35.0); MCV 94.5 fL (80.0-100.0); Mean Platelet Volume 7.1; Monocytes # (A) 0.2 k/uL (0-1.0); Monocytes % (A) 4 %; Neutrophils # (A) 4.7 k/uL (1.3-7.7); Neutrophils % (A) 93 %; Platelet Count 444 k/uL (150-450); RBC 2.56 m/uL (4.30-5.90); RDW 16.7 % (11.5-15.5); WBC 5.1 k/uL (3.8-10.6)
[2021-05-09] MEDS: methylPREDNISolone SOD SUCCI 125 MG/2 ML VIAL IV SCH ×3 (08:20→23:59)
[2021-05-09] MEDS: ENOXAPARIN 40 MG/0.4 ML SYRINGE SQ SCH (08:20)
[2021-05-09] MEDS: MEGESTROL 400 MG/10 ML CUP PO SCH (08:21)
[2021-05-09] MEDS: FERROUS SULFATE 325 MG TAB PO SCH ×2 (08:21→16:56)
[2021-05-09] MEDS: GABAPENTIN 300 MG CAP PO SCH ×3 (08:21→21:02)
[2021-05-09] MEDS: FOLIC ACID 1 MG TAB PO SCH (08:21)
[2021-05-09] MEDS: guaiFENesin 600 MG TABLET.ER PO SCH ×2 (08:21→21:02)
[2021-05-09] MEDS ORDERED: POTASSIUM CHLORIDE ER 20 MEQ TAB.ER PO STA ×2 (09:47→17:39)
[2021-05-09 10:17] LABS: Anisocytosis Slight; HCT 26.3 % (39.0-53.0); Hypochromasia Moderate; MCH 29.5 pg (25.0-35.0); MCHC 30.6 g/dL (31.0-37.0); MCV 96.2 fL (80.0-100.0); Mean Platelet Volume 7.8; Platelet Count 504 k/uL (150-450); RBC 2.73 m/uL (4.30-5.90); RDW 16.7 % (11.5-15.5); WBC 5.2 k/uL (3.8-10.6)
[2021-05-09 10:38] LABS: African American GFR (CKD) >90 (>60 ml/min/1.73 sqM); Anion Gap 7 mmol/L; Blood Urea Nitrogen 8 mg/dL (9-20); Calcium 8.4 mg/dL (8.4-10.2); Carbon Dioxide 24 mmol/L (22-30); Chloride 103 mmol/L (98-107); Glucose 149 mg/dL (74-99); Non-African American GFR(CKD) >90 (>60 ml/min/1.73 sqM); Potassium 2.9 mmol/L (3.5-5.1); Sodium 134 mmol/L (137-145)
[2021-05-09] MEDS: DEXTROSE 5% IN WATER 1,000 ML with SODIUM BICARB (1 MEQ/ML) 150 ML IV SCH (10:38)
[2021-05-09] MEDS: POTASSIUM CHLORIDE ER 20 MEQ TAB.ER PO SCH ×2 (11:49→14:05)
[2021-05-09] MEDS: CYCLOBENZAPRINE 5 MG TAB PO PRN (11:49)
--- NOTE | 2021-05-09 13:38 | P.PN ---
Subjective Progress Note Date: 05/09/21 Principal diagnosis: COPD exacerbation, NSCLC In f/u today pt thinks he is being discharged today. He again stated he did not know what was going on. His was at bedside. Objective - Vital Signs Vital signs: Vital Signs Temp 98.2 F 05/09/21 04:24 Pulse 82 05/09/21 09:00 Resp 16 05/09/21 04:24 BP 142/87 05/09/21 04:24 Pulse Ox 97 05/09/21 04:24 Intake & Output 05/08/21 05/09/21 05/09/21 18:59 06:59 18:59 Intake Total 950 1540 Balance 950 1540 Weight 49.895 kg Intake: Intake, IV Titration 950 950 Amount Dextrose 5% in Water 1, 600 600 000 ml @ 50 mls/hr IV . Q23H [facility] with Sodium Bicarb (1 Meq/ml) 150 ml Rx#:[id number] Piperacillin-Tazobactam 3 100 100 .375 gm In Sodium Chloride 0.9% 100 ml @ 25 mls/hr IVPB Q8H [facility] Rx#: [id number] Vancomycin 750 mg In 250 250 Sodium Chloride 0.9% 250 ml @ 125 mls/hr IVPB Q8H [facility] Rx#:[id number] Oral 590 Other: Voiding Method Toilet # Voids 3 - Constitutional General appearance: Present: cooperative, mild distress, thin - EENT Eyes: Present: anicteric sclerae, EOMI ENT: Present: hearing grossly normal - Respiratory Details: pt is noted to gasp/have nasal flare to take in a breath about 2-3/min Respiratory: bilateral: diminished - Cardiovascular Heart sounds: normal: S1, S2 - Peripheral edema leg Peripheral Edema: bilateral: None - Gastrointestinal General gastrointestinal: Present: normal bowel sounds, soft - Neurologic Neurologic: Present: CNII-XII intact - Musculoskeletal Musculoskeletal: Present: generalized weakness, strength equal bilaterally - Psychiatric Psychiatric: Present: A&O x's 3, appropriate affect - Labs CBC & Chem 7: 05/09/21 10:04 05/09/21 10:04 Labs: Abnormal Lab Results - Last 24 Hours (Table) 05/09/21 05/09/21 05/09/21 Range/Units 05:32 10:04 10:04 RBC 2.56 L 2.73 L (4.30-5.90) m/uL Hgb 7.5 L 8.0 L (13.0-17.5) gm/dL Hct 24.2 L 26.3 L (39.0-53.0) % MCHC 30.6 L (31.0-37.0) g/dL RDW 16.7 H 16.7 H (11.5-15.5) % Plt Count 504 H (150-450) k/uL Lymphocytes # 0.1 L (1.0-4.8) k/uL Sodium 134 L (137-145) mmol/L Potassium 2.9 L (3.5-5.1) mmol/L BUN 8 L (9-20) mg/dL Creatinine 0.54 L (0.66-1.25) mg/dL Glucose 149 H (74-99) mg/dL Microbiology - Last 24 Hours (Table) 05/06/21 18:11 Gram Stain - Final Sputum Sputum Culture - Final Amy albicans Assessment and Plan (1) Dyspnea Narrative/Plan: 2/2 malignant disease and COPD. Pt being treated for COPD exacerbation. I reviewed everything that was discussed yesterday with there because pt kept saying the he did not know what was going on. We reviewed COPD disease process, chronic SOB. Pt needs to learn his limitations, he needs to use his medications appropriately ( states pt uses his scheduled BID inhaler up to 10 times a day!) We reviewed tripod position and using a fan across the face to help when pt breathing is difficult. Pt has severe knowledge deficit regarding COPD, medications to treat and how to self manage Current Visit: Yes Status: Acute Priority: High Code(s): R06.00 - DYSPNEA, UNSPECIFIED SNOMED Code(s): 438627391 (2) Anemia Narrative/Plan: Pt was anemic before starting chemo. He is folate deficient and low normal B12- he is supplemented. He did have low normal iron studies and saturation, he is supplemented. Transfuse for Hgb<7 or if symptomatic. Current Visit: Yes Status: Acute Priority: Medium Code(s): D64.9 - ANEMIA, UNSPECIFIED SNOMED Code(s): 532281720 (3) Generalized weakness Narrative/Plan: 2/2 disease, poor resp status. PT/OT ordered and continues. Pt is going to need modifications to help him rehab through his SOB 2/2 COPD Current Visit: Yes Status: Acute Priority: High Code(s): R53.1 - WEAKNESS SNOMED Code(s): 21991839 (4) Metastatic lung cancer (metastasis from lung to other site) Narrative/Plan: Pt had 1 weekly carbo/taxol and a few days of radiation. He currently is still a candidate for treatment. His treatment is due tomorrow. IF Rad Onc treating then keep chemo appt. If radiation is going to be held, then do NOT come in for chemo Current Visit: Yes Status: Acute Priority: Medium Code(s): C34.90 - MALIGNANT NEOPLASM OF UNSP PART OF UNSP BRONCHUS OR LUNG SNOMED Code(s): 15929654 Plan: Pt is going to need to constantly re- education on how to manage COPD symptoms and use treatments/meds correctly for best outcome. Pt continues to say that he doesn't know what is going on. Reviewed with his AND his at bedside today all that was reviewed yesterday: respiratory problems he is experiencing are from COPD and lung cancer. He needs to learn his limitations (how far can he walk, energy conservation), use assistive devices (talked about wheeled seated walker, handicap parking) and he needs to use his medications properly at home. We reviewed basic lung physiology and why he is SOB. Adrenal masses: Pt will cancel and reschedule his biopsy appt as this has been scheduled twice for him. Time with Patient: Greater than 30
[2021-05-09] MEDS: POTASSIUM CHLORIDE 10 MEQ in WATER FOR INJECTION 1 100ML.BAG IVPB SCH ×3 (17:50→23:59)
[2021-05-09] MEDS ORDERED: POTASSIUM CHLORIDE ER 20 MEQ TAB.ER PO SCH (18:00)
--- NOTE | 2021-05-09 18:12 | P.PN ---
Subjective Progress Note Date: 05/08/21 Patient is a 60-year-old male with a PMH of recently diagnosed lung cancer started on chemotherapy 2 weeks ago, COPD, and hypertension who was brought to the emergency room due to altered mental status. The patient had undergone a CT chest which revealed findings consistent with pneumonia along with a large mediastinal mass and enlarged adrenal glands consistent with metastatic disease and a suspected pathologic fracture of the right fourth rib. The patient was admitted to the medicine service for management of healthcare associated pneumonia along with his COPD exacerbation. The patient was seen and examined at the bedside on 05/08. He reported minimal improvement in his shortness of breath. Denied chest pain, nausea, vomiting, abdominal pain. Physical examination: General: Non-toxic, in no acute distress, appears stated age, frail HEENT: NC/AT, anicteric sclerae, moist conjunctiva, no lid-lag, PERRLA Cardiovascular: S1/S2 wnl, no murmurs, rubs, or gallops Lungs: Poor air entry bilaterally, normal respiratory effort, no accessory muscle use Abdominal: Soft, non-tender, non-distended, no guarding, rebound, or rigidity Skin: Warm, dry Extremities: No edema or contractures Psychiatric: Alert and oriented to person, place and time, appropriate affect Neuro: CN II-XII grossly intact, Strength4/5 in all 4 extremities, Speech intact, Sensation to light touch grossly intact throughout Assessment/plan Acute hypoxic respiratory failure secondary to COPD exacerbation and healthcare associated pneumonia -Continue with broad-spectrum antibiotics -Continue with Solu-Medrol and bronchodilators -Continue supplemental oxygen Recently diagnosed lung cancer, currently on chemotherapy -Oncology admonitions appreciated Bicytopenia -Likely due to ongoing malignancy and chemotherapy -Monitor for now Right rib fracture -Likely pathologic -Pain management Cachexia and severe protein calorie malnutrition -Dietitian recommendations appreciated Objective - Vital Signs Vital signs: Vital Signs Temp 98.3 F 05/08/21 12:18 Pulse 84 05/08/21 15:02 Resp 18 05/08/21 12:18 BP 127/71 05/08/21 12:18 Pulse Ox 97 05/08/21 12:18 Intake & Output 05/08/21 05/08/21 05/09/21 06:59 18:59 06:59 Intake Total 950 950 Balance 950 950 Weight 49.895 kg Intake: Intake, IV Titration 950 950 Amount Dextrose 5% in Water 1, 600 600 000 ml @ 50 mls/hr IV . Q23H [facility] with Sodium Bicarb (1 Meq/ml) 150 ml Rx#:[id number] Piperacillin-Tazobactam 3 100 100 .375 gm In Sodium Chloride 0.9% 100 ml @ 25 mls/hr IVPB Q8H [facility] Rx#: [id number] Vancomycin 750 mg In 250 250 Sodium Chloride 0.9% 250 ml @ 125 mls/hr IVPB Q8H [facility] Rx#:[id number] Other: Voiding Method Toilet - Labs CBC & Chem 7: 05/09/21 10:04 05/09/21 16:55 Labs: Abnormal Lab Results - Last 24 Hours (Table) 05/08/21 Range/Units 04:18 Sodium 133 L (137-145) mmol/L Potassium 3.2 L (3.5-5.1) mmol/L Carbon Dioxide 20 L (22-30) mmol/L Creatinine 0.51 L (0.66-1.25) mg/dL Glucose 118 H (74-99) mg/dL Calcium 8.3 L (8.4-10.2) mg/dL Microbiology - Last 24 Hours (Table) 05/06/21 18:11 Gram Stain - Final Sputum Sputum Culture - Final Amy albicans 05/01/21 13:25 Blood Culture - Final Blood No Growth after 144 hours 05/01/21 13:25 Blood Culture - Final Blood No Growth after 144 hours
--- NOTE | 2021-05-09 18:14 | P.PN ---
Subjective Progress Note Date: 05/09/21 Patient is a 60-year-old male with a PMH of recently diagnosed lung cancer started on chemotherapy 2 weeks ago, COPD, and hypertension who was brought to the emergency room due to altered mental status. The patient had undergone a CT chest which revealed findings consistent with pneumonia along with a large mediastinal mass and enlarged adrenal glands consistent with metastatic disease and a suspected pathologic fracture of the right fourth rib. The patient was admitted to the medicine service for management of healthcare associated pneumonia along with his COPD exacerbation. The patient was seen and examined at the bedside on 05/09. The patient reported improvement in his shortness of breath and lethargy. Denied any additional complaints. Physical examination: General: Non-toxic, in no acute distress, appears stated age, frail HEENT: NC/AT, anicteric sclerae, moist conjunctiva, no lid-lag, PERRLA Cardiovascular: S1/S2 wnl, no murmurs, rubs, or gallops Lungs: Somewhat improved air entry bilaterally, normal respiratory effort, no accessory muscle use Abdominal: Soft, non-tender, non-distended, no guarding, rebound, or rigidity Skin: Warm, dry Extremities: No edema or contractures Psychiatric: Alert and oriented to person, place and time, appropriate affect Neuro: CN II-XII grossly intact, Strength4/5 in all 4 extremities, Speech intact, Sensation to light touch grossly intact throughout Assessment/plan Acute hypoxic respiratory failure secondary to COPD exacerbation and healthcare associated pneumonia -Continue with broad-spectrum antibiotics -Continue with Solu-Medrol and bronchodilators -Continue supplemental oxygen Persistent hypokalemia -Check magnesium levels -Replace and monitor Recently diagnosed lung cancer, currently on chemotherapy -Oncology admonitions appreciated Bicytopenia -Likely due to ongoing malignancy and chemotherapy -Monitor for now Right rib fracture -Likely pathologic -Pain management Cachexia and severe protein calorie malnutrition -Dietitian recommendations appreciated DVT prophylaxis -Lovenox Discussed with: Patient, Anticipated discharge date: in am Anticipated discharge place: Home Objective - Vital Signs Vital signs: Vital Signs Temp 98.0 F 05/09/21 13:55 Pulse 100 05/09/21 13:55 Resp 19 05/09/21 13:55 BP 128/73 05/09/21 13:55 Pulse Ox 99 05/09/21 13:55 Intake & Output 05/08/21 05/09/21 05/09/21 18:59 06:59 18:59 Intake Total 950 1540 Balance 950 1540 Weight 49.895 kg Intake: Intake, IV Titration 950 950 Amount Dextrose 5% in Water 1, 600 600 000 ml @ 50 mls/hr IV . Q23H [facility] with Sodium Bicarb (1 Meq/ml) 150 ml Rx#:[id number] Piperacillin-Tazobactam 3 100 100 .375 gm In Sodium Chloride 0.9% 100 ml @ 25 mls/hr IVPB Q8H [facility] Rx#: [id number] Vancomycin 750 mg In 250 250 Sodium Chloride 0.9% 250 ml @ 125 mls/hr IVPB Q8H [facility] Rx#:[id number] Oral 590 Other: Voiding Method Toilet # Voids 3 - Labs CBC & Chem 7: 05/09/21 10:04 05/09/21 16:55 Labs: Abnormal Lab Results - Last 24 Hours (Table) 05/09/21 05/09/21 05/09/21 Range/Units 05:32 10:04 10:04 RBC 2.56 L 2.73 L (4.30-5.90) m/uL Hgb 7.5 L 8.0 L (13.0-17.5) gm/dL Hct 24.2 L 26.3 L (39.0-53.0) % MCHC 30.6 L (31.0-37.0) g/dL RDW 16.7 H 16.7 H (11.5-15.5) % Plt Count 504 H (150-450) k/uL Lymphocytes # 0.1 L (1.0-4.8) k/uL Sodium 134 L (137-145) mmol/L Potassium 2.9 L (3.5-5.1) mmol/L BUN 8 L (9-20) mg/dL Creatinine 0.54 L (0.66-1.25) mg/dL Glucose 149 H (74-99) mg/dL 05/09/21 Range/Units 16:55 RBC (4.30-5.90) m/uL Hgb (13.0-17.5) gm/dL Hct (39.0-53.0) % MCHC (31.0-37.0) g/dL RDW (11.5-15.5) % Plt Count (150-450) k/uL Lymphocytes # (1.0-4.8) k/uL Sodium (137-145) mmol/L Potassium 3.2 L (3.5-5.1) mmol/L BUN (9-20) mg/dL Creatinine (0.66-1.25) mg/dL Glucose (74-99) mg/dL
[2021-05-10] MEDS: IPRATROPIUM-ALBUTEROL 3 ML NEB INHALATION SCH ×4 (01:13→11:46)
[2021-05-10] MEDS: MORPHINE SULFATE 2 MG/ML SYRINGE IVP PRN ×3 (01:25→10:00)
[2021-05-10] MEDS: ALPRAZolam 0.5 MG TAB PO PRN (01:25)
[2021-05-10] MEDS: POTASSIUM CHLORIDE 10 MEQ in WATER FOR INJECTION 1 100ML.BAG IVPB SCH (01:48)
[2021-05-10] MEDS: PIPERACILLIN-TAZOBACTAM 3.375 GM in SODIUM CHLORIDE 0.9% 100 ML IVPB SCH ×2 (05:00→13:11)
[2021-05-10] MEDS: VANCOMYCIN 750 MG in SODIUM CHLORIDE 0.9% 250 ML IVPB SCH ×2 (05:00→12:45)
[2021-05-10] MEDS: DEXTROSE 5% IN WATER 1,000 ML with SODIUM BICARB (1 MEQ/ML) 150 ML IV SCH (05:14)
[2021-05-10] MEDS: oxyCODONE-APAP 10-325MG 1 EACH TAB PO PRN ×3 (06:05→12:25)
[2021-05-10 06:53] LABS: Anisocytosis Slight; HCT 25.9 % (39.0-53.0); HGB 7.7 gm/dL (13.0-17.5); Hypochromasia Moderate; MCH 28.5 pg (25.0-35.0); MCHC 29.8 g/dL (31.0-37.0); MCV 95.5 fL (80.0-100.0); Platelet Count 455 k/uL (150-450); RBC 2.71 m/uL (4.30-5.90); RDW 16.9 % (11.5-15.5); WBC 5.9 k/uL (3.8-10.6)
[2021-05-10] MEDS: ENOXAPARIN 40 MG/0.4 ML SYRINGE SQ SCH (08:25)
[2021-05-10] MEDS: FERROUS SULFATE 325 MG TAB PO SCH (08:25)
[2021-05-10] MEDS: methylPREDNISolone SOD SUCCI 125 MG/2 ML VIAL IV SCH (08:25)
[2021-05-10] MEDS: FOLIC ACID 1 MG TAB PO SCH (08:26)
[2021-05-10] MEDS: GABAPENTIN 300 MG CAP PO SCH (08:26)
[2021-05-10] MEDS: guaiFENesin 600 MG TABLET.ER PO SCH (08:26)
[2021-05-10] MEDS: MEGESTROL 400 MG/10 ML CUP PO SCH (08:26)
[2021-05-10] MEDS ORDERED: predniSONE 20 MG TAB PO SCH (10:00)
[2021-05-10 10:58] LABS: African American GFR (CKD) 135.6 (60.0-200.0); Anion Gap 16.6 mmol/L (4.00-12.00); BUN/Creat Ratio 14.2 Ratio (12.00-20.00); Blood Urea Nitrogen 7.1 mg/dL (9.0-27.0); Carbon Dioxide 12.4 mmol/L (21.6-31.8); Potassium 4.3 mmol/L (3.5-5.5)
--- NOTE | 2021-05-10 10:58 | P.NPCON ---
History of Present Illness - Reason for Consult hypokalemia - History of Present Illness Reason for consultation: Hypokalemia History of present illness: Patient is a 60-year-old male seen in renal consultation for hypokalemia. Patient's potassium level on admission was 3.9 but the last few days it has been running low. Yesterday K was 3.2 and was replaced. Patient presented to the hospital on May 01 due to shortness of breath as well as chest pain. Patient's oral intake has been quite poor and he has been losing weight as well. He denies abdominal pain nausea or vomiting but did have vomiting prior to admission. No diarrhea. Patient has history of metastatic lung cancer. He's being treated for pneumonia as well as COPD. He's currently maintained on bicarb drip running at 50 mL an hour. Acidosis has improved. Bicarb level 24 yesterday. Morning labs pending. GFR is at baseline. No history of kidney disease. No active complaints. He does want to go home. Vital signs are stable. General: The patient appeared well nourished and normally developed. HEENT: Head exam is unremarkable. LUNGS: Breath sounds decreased. HEART: Rate and Rhythm are regular. ABDOMEN: Soft, no distention. EXTREMITITES: No edema. Past Medical History Past Medical History: Cancer, COPD, Hypertension Additional Past Medical History / Comment(s): degenerative arthritis, alcoholism History of Any Multi-Drug Resistant Organisms: None Reported Past Surgical History: Ear Surgery Past Anesthesia/Blood Transfusion Reactions: No Reported Reaction Past Psychological History: Anxiety Smoking Status: Current every day smoker Past Alcohol Use History: Occasional Past Drug Use History: None Reported - Past Family History Family Additional Family Medical History / Comment(s): Pancreatic cancer runs in the family Medications and Allergies Home Medications Medication Instructions Recorded Confirmed Type Gabapentin 600 mg PO TID 03/13/17 05/01/21 History ALPRAZolam [Xanax] 0.25 - 5 mg PO TID PRN 02/20/21 05/01/21 History Benzonatate [Tessalon Perles] 100 mg PO TID PRN #90 cap 02/22/21 05/01/21 Rx Cyanocobalamin [Vitamin B-12] 500 mcg PO DAILY 05/01/21 05/01/21 History Folic Acid 1 mg PO DAILY 05/01/21 05/01/21 History Ibuprofen [Motrin] 800 mg PO Q8H PRN 05/01/21 05/01/21 History Megestrol [Megace] 800 mg PO DAILY 05/01/21 05/01/21 History Naloxone HCl [Narcan] 4 mg NASAL ONCE PRN 05/01/21 05/01/21 History Ondansetron [Zofran] 4 mg PO Q8HR PRN 05/01/21 05/01/21 History Polyethylene Glycol 3350 [Miralax] 17 gm PO DAILY PRN 05/01/21 05/01/21 History Sennosides [Senna] 8.6 mg PO DAILY PRN 05/01/21 05/01/21 History fentaNYL 75MCG/HR PATCH [Duragesic 1 patch TRANSDERM Q72H 05/01/21 05/01/21 History 75MCG/HR] oxyCODONE-APAP 10-325MG [Percocet 2 tab PO Q6H PRN 05/01/21 05/01/21 History 10-325 mg] Allergies Allergy/AdvReac Type Severity Reaction Status Date / Time No Known Allergies Allergy Verified 05/01/21 14:35 Physical Exam Vitals: Vital Signs Temp Pulse Pulse Resp BP Pulse Ox 05/10/21 08:00 90 16 05/10/21 04:18 98 F 99 16 119/58 95 05/10/21 01:29 100 05/10/21 01:14 100 05/09/21 21:17 99 05/09/21 21:09 101 H 05/09/21 20:25 97.5 F L 94 16 127/78 93 L 05/09/21 19:55 100 16 05/09/21 13:55 98.0 F 100 19 128/73 99 05/09/21 11:47 86 05/09/21 11:35 84 Intake and Output 05/09/21 05/10/21 05/10/21 22:59 06:59 14:59 Intake Total 1340 480 Balance 1340 480 Intake: Intake, IV Titration 750 Amount Piperacillin-Tazobactam 3 100 .375 gm In Sodium Chloride 0.9% 100 ml @ 25 mls/hr IVPB Q8H [facility] Rx#: [id number] Potassium Chloride 10 meq 400 In Water For Injection 1 100ml.bag @ 100 mls/hr IVPB Q1HR [facility] Rx#: [id number] Vancomycin 750 mg In 250 Sodium Chloride 0.9% 250 ml @ 125 mls/hr IVPB Q8H [facility] Rx#:[id number] Oral 590 480 Other: Voiding Method Toilet Toilet Urinal # Voids 2 2 Results - Lab Results Most recent lab results Calcium 8.4 mg/dL (8.4-10.2) 05/09/21 10:04 Magnesium 2.0 mg/dL (1.6-2.3) 05/09/21 16:55 05/10/21 06:04 05/09/21 16:55 Assessment and Plan Plan: Assessment: 1. Hypokalemia from poor intake, steroids as well as intracellular shifting from IV bicarb. Potassium level 3.2 yesterday. Magnesium level normal. 2. Metastatic lung cancer. 3. Pneumonia maintained on antibiotics. 4. COPD exacerbation. 5. Metabolic acidosis maintained on bicarb drip. ?etiology. Resolved. Plan: Follow-up morning labs. Stop bicarb drip. Start LR at 50 mL an hour. Encouraged oral intake. Thank you for the consultation. I will continue to follow the patient was due during his hospital stay.
[2021-05-10] MEDS ORDERED: LACTATED RINGERS 1,000 ML IV SCH (11:00)
[2021-05-10 12:26] VITALS: BP 135/87; PULSE 99; RESP 17; TEMP 98.6
[2021-05-10 12:54] LABS: African American GFR (CKD) >90 (>60 ml/min/1.73 sqM); Anion Gap 7 mmol/L; Blood Urea Nitrogen 6 mg/dL (9-20); Calcium 8.5 mg/dL (8.4-10.2); Carbon Dioxide 20 mmol/L (22-30); Chloride 105 mmol/L (98-107); Glucose 110 mg/dL (74-99); Non-African American GFR(CKD) >90 (>60 ml/min/1.73 sqM); Potassium 4.3 mmol/L (3.5-5.1); Sodium 132 mmol/L (137-145)
--- NOTE | 2021-05-10 21:30 | P.DS ---
Providers Date of admission: 05/01/21 17:26 Expected date of discharge: 05/10/21 Attending physician: Sekou Jurado MD Consults: 05/03/21 08:46 Consult Physician Routine Consulting Provider: Barrington Alvarado Consult Reason/Comments: vomiting and diarrhea after chemo Do you want consulting provider notified?: Yes 05/09/21 17:31 Consult Physician Urgent Consulting Provider: Chino Cooper Consult Reason/Comments: Persistent hypokalemia Do you want consulting provider notified?: Yes Primary care physician: Nilesh Lee MD Hospital Course: Discharge Diagnosis: Lung cancer likely with metastases to adrenal gland Acute exacerbation of COPD Bilateral pneumonia, possible gram negative, possible MRSA Right Rib fracture likely pathologic Severe protein malnutrition and cachexia BMI 16.7 Metabolic acidosis with bicarb 15 Anemia and thrombocytosis Hypomagnesemia Hospital Course: Patient is a 60-year-old male with a history of lung cancer with recent initiation of chemotherapy last week, COPD, and hypertension who presented to the ER complaints of nausea and vomiting. On arrival to the ER he was found have anemia with hemoglobin 8.8, platelet count 455, sodium 135, chloride 110, carbon dioxide 15. He was started on IV fluids and admitted. He underwent a CTA of the chest which showed a large mediastinal mass consistent with tumor, left upper lobe stellar infiltrate, enlarged adrenal gland consistent with metastatic disease, and a possible pathologic fracture of the right fourth rib, as well as bilateral multiple areas of mild pulmonary infiltrates. CT abdomen and pelvis showed large bilateral adrenal masses, mild fibrotic left lung base, and adrenal masses significantly increased in size compared 03/02/21 consistent with tumor progression Follow-up: Dr. Alvarado, Dr. Lee Has completed a full course of antibiotics, complete prednisone taper. Patient seen and examined at bedside. He is feeling good, breathing is at baseline, no additional nausea, vomiting, or diarrhea. He does not like how fentanyl makes him feel and wants Percocet. He is out of it and states her cavitary was on vacation and can't see him until next week. Vital signs reviewed and stable. General: non toxic, no distress, appears at stated age, cachexia, temporal wasting Derm: warm, dry Head: atraumatic, normocephalic, symmetric Eyes: EOMI, no lid lag, anicteric sclera Mouth: no lip lesion, mucus membranes moist Cardiovascular: S1S2 reg, no murmur, positive posterior tibial pulse bilateral, Lungs: Decreased breath sounds bilateral bilateral, no rhonchi, no rales , no accessory muscle use Abdominal: soft, nontender to palpation, no guarding, no appreciable organomegaly Ext: no gross muscle atrophy, no edema, no contractures Neuro: CN II-XI grossly intact, no focal neuro deficits Psych: Alert, oriented, appropriate affect A total of minutes of time were spent preparing this complex discharge summary . In the Plan - Discharge Summary Discharge Rx Participant: No New Discharge Prescriptions: New predniSONE [Deltasone] 40 mg PO DAILY #6 tab Ferrous Sulfate [Iron (65 MG Elemental)] 325 mg PO BID-W/MEALS #60 tab guaiFENesin [Mucinex] 600 mg PO Q12HR #0 tablet Omeprazole 40 mg PO DAILY #40 cap Continue Gabapentin 600 mg PO TID ALPRAZolam [Xanax] 0.25 - 5 mg PO TID PRN PRN Reason: Anxiety Benzonatate [Tessalon Perles] 100 mg PO TID PRN #90 cap PRN Reason: Cough Sennosides [Senna] 8.6 mg PO DAILY PRN PRN Reason: Constipation Polyethylene Glycol 3350 [Miralax] 17 gm PO DAILY PRN PRN Reason: Constipation Ondansetron [Zofran] 4 mg PO Q8HR PRN PRN Reason: Nausea Megestrol [Megace] 800 mg PO DAILY Ibuprofen [Motrin] 800 mg PO Q8H PRN PRN Reason: Pain Folic Acid 1 mg PO DAILY Cyanocobalamin [Vitamin B-12] 500 mcg PO DAILY Naloxone HCl [Narcan] 4 mg NASAL ONCE PRN PRN Reason: OVERDOSE oxyCODONE-APAP 10-325MG [Percocet 10-325 mg] 2 tab PO Q6H PRN #56 tab PRN Reason: Pain Discontinued fentaNYL 75MCG/HR PATCH [Duragesic 75MCG/HR] 1 patch TRANSDERM Q72H Discharge Medication List Gabapentin 600 mg PO TID 03/13/17 [History] ALPRAZolam [Xanax] 0.25 - 5 mg PO TID PRN 02/20/21 [History] Benzonatate [Tessalon Perles] 100 mg PO TID PRN #90 cap 02/22/21 [Rx] Cyanocobalamin [Vitamin B-12] 500 mcg PO DAILY 05/01/21 [History] Folic Acid 1 mg PO DAILY 05/01/21 [History] Ibuprofen [Motrin] 800 mg PO Q8H PRN 05/01/21 [History] Megestrol [Megace] 800 mg PO DAILY 05/01/21 [History] Naloxone HCl [Narcan] 4 mg NASAL ONCE PRN 05/01/21 [History] Ondansetron [Zofran] 4 mg PO Q8HR PRN 05/01/21 [History] Polyethylene Glycol 3350 [Miralax] 17 gm PO DAILY PRN 05/01/21 [History] Sennosides [Senna] 8.6 mg PO DAILY PRN 05/01/21 [History] Ferrous Sulfate [Iron (65 MG Elemental)] 325 mg PO BID-W/MEALS #60 tab 05/10/21 [Rx] Omeprazole 40 mg PO DAILY #40 cap 05/10/21 [Rx] guaiFENesin [Mucinex] 600 mg PO Q12HR #0 tablet 05/10/21 [Rx] oxyCODONE-APAP 10-325MG [Percocet 10-325 mg] 2 tab PO Q6H PRN #56 tab 05/10/21 [Rx] predniSONE [Deltasone] 40 mg PO DAILY #6 tab 05/10/21 [Rx] Follow up Appointment(s)/Referral(s): Barrington Alvarado MD [STAFF PHYSICIAN] - 05/10/21 1:30 pm (THIS IS APPT FOR CHEMO) Nilesh Lee MD [Primary Care Provider] - 1-2 days Activity/Diet/Wound Care/Special Instructions: Activity: as tolerated Diet: regular, drink lots of fluids. Special Instructions: Patient requires a hospital bed at time of discharge to keep the head of bed elevated more than 30 degrees most of the time to alleviate dyspnea from COPD and lung cancer IF PT GOING TO RADIATION THEN HE IS TO COME FOR HIS CHEMO APPT AFTER. IF RADIATION IS HELD, THEN CHEMO WILL BE HELD TOO. ADRENAL BIOPSY SCHEDULED FOR FRIDAY AT [facility] WITH DR. REESEDO NOT CANCEL APPT, RESCHEDULE IT Discharge Disposition: HOME SELF-CARE
== END 2021-05-10 14:40 | disposition home or self-care (01) | DRG 177 ==
LOC: EC 12:39 → 4SSUR 17:26 → 5NMEDONC 18:24
PROVIDERS: ADMIT Internal Medicine; ATTEND Internal Medicine
DX: J15.6 Pneumonia due to other Gram-negative bacteria (principal); E43 Unspecified severe protein-calorie malnutrition; J96.01 Acute respiratory failure with hypoxia; R64 Cachexia; E87.2 Acidosis; C79.70 Secondary malignant neoplasm of unspecified adrenal gland; C34.92 Malignant neoplasm of unspecified part of left bronchus or lung; R04.2 Hemoptysis; M84.48XA Pathological fracture, other site, initial encounter for fracture; J44.1 Chronic obstructive pulmonary disease with (acute) exacerbation; Z68.1 Body mass index [BMI] 19.9 or less, adult; J44.0 Chronic obstructive pulmonary disease with (acute) lower respiratory infection; E86.0 Dehydration; R62.7 Adult failure to thrive; J15.212 Pneumonia due to Methicillin resistant Staphylococcus aureus; D47.3 Essential (hemorrhagic) thrombocythemia; F10.21 Alcohol dependence, in remission; Z20.822 Contact with and (suspected) exposure to COVID-19; D64.81 Anemia due to antineoplastic chemotherapy; T45.1X5A Adverse effect of antineoplastic and immunosuppressive drugs, initial encounter; I10 Essential (primary) hypertension; Y95 Nosocomial condition; D50.9 Iron deficiency anemia, unspecified; E87.6 Hypokalemia; F41.9 Anxiety disorder, unspecified; G89.29 Other chronic pain; M54.9 Dorsalgia, unspecified; M19.90 Unspecified osteoarthritis, unspecified site; F17.210 Nicotine dependence, cigarettes, uncomplicated; Z71.6 Tobacco abuse counseling; Z79.818 Long term (current) use of other agents affecting estrogen receptors and estrogen levels; Z79.891 Long term (current) use of opiate analgesic; Z92.3 Personal history of irradiation; Z79.899 Other long term (current) drug therapy; Z71.3 Dietary counseling and surveillance; Z80.0 Family history of malignant neoplasm of digestive organs
CPT/HCPCS: 36415; 70553; 71046; 71275; 74177; 80048; 80053; 80202; 81001; 82565; 83605; 83735; 83880; 84132; 84484; 85025; 85027; 85610; 85730; 87040; 87070; 87205; 87635; 93005; 94640; 94760; 96365; 96366; 96375; 99285

== ENCOUNTER 2021-06-09 21:24 | Inpatient (IN) | payer MEDICARE, OTHER ==
[2021-06-09] MEDS ORDERED: SODIUM CHLORIDE 0.9% 500 ML 500 ML IV ONE (22:24)
--- NOTE | 2021-06-09 22:31 | ED ---
Altered Mental Status HPI - General Chief Complaint: Altered Mental Status Stated Complaint: Weakness Time Seen by Provider: 06/09/21 21:28 Source: EMS Mode of arrival: EMS Limitations: no limitations - History of Present Illness Initial Comments: 60 year-old male patient currently being treated with chemo and radiation for lung cancer with possible bone mets, presents with and daughter for evaluation of increased weakness, drowsiness, and periods of apnea. Also reporting hallucinations. states he was admitted to the hospital three times over the last month and a half for altered electrolytes and low hemoglobin. They state this week he did have a couple of days where he was improved, eating, and had more energy. Since then he has declined. They state last night and today he has had very slow breathing with 5-10 seconds between each breath. They state that his pain medication was changed on Friday but he has not started it yet. During his last admission he was given potassium and augmentin. He is unable to take the augmentin. Denies any fever or chills. Denies any vomiting or diarrhea. Patient is reporting back pain. - Related Data Home Medications Medication Instructions Recorded Confirmed Gabapentin 600 mg PO TID 03/13/17 06/09/21 ALPRAZolam [Xanax] 0.5 mg PO TID PRN 02/20/21 06/09/21 Folic Acid 1 mg PO DAILY 05/01/21 06/09/21 Ibuprofen [Motrin] 800 mg PO Q8H PRN 05/01/21 06/09/21 Megestrol [Megace] 800 mg PO DAILY 05/01/21 06/09/21 Ondansetron [Zofran] 4 mg PO Q8HR PRN 05/01/21 06/09/21 Albuterol Nebulized [Ventolin 2.5 mg INHALATION RT-Q6H PRN 06/09/21 06/09/21 Nebulized] Amoxicillin/Potassium Clav 1 tab PO BID 06/09/21 06/09/21 [Augmentin 875-125 Tablet] Cyanocobalamin (Vitamin B-12) 1,000 mcg PO DAILY 06/09/21 06/09/21 [Vitamin B-12] Potassium Chloride ER [K-Dur 10] 10 meq PO DAILY 06/09/21 06/09/21 oxyCODONE HCL [oxyCODONE HCL (IR)] 20 mg PO Q4H 06/09/21 06/09/21 Previous Rx's Medication Instructions Recorded Benzonatate [Tessalon Perles] 100 mg PO TID PRN #90 cap 02/22/21 Allergies Allergy/AdvReac Type Severity Reaction Status Date / Time No Known Allergies Allergy Verified 06/09/21 23:20 Review of Systems ROS Statement: Those systems with pertinent positive or pertinent negative responses have been documented in the HPI. ROS Other: All systems not noted in ROS Statement are negative. Past Medical History Past Medical History: Cancer, COPD, Hypertension Additional Past Medical History / Comment(s): degenerative arthritis, alcoholism History of Any Multi-Drug Resistant Organisms: None Reported Past Surgical History: Ear Surgery Past Anesthesia/Blood Transfusion Reactions: No Reported Reaction Past Psychological History: Anxiety Smoking Status: Current every day smoker Past Alcohol Use History: Occasional Past Drug Use History: None Reported - Past Family History Family Additional Family Medical History / Comment(s): Pancreatic cancer runs in the family General Exam Limitations: no limitations General appearance: in no apparent distress, other (This is a well-developed, thin appearing elderly male patient in no acute distress.) ENT exam: Present: normal exam, normal oropharynx, mucous membranes moist Respiratory exam: Present: normal lung sounds bilaterally. Absent: respiratory distress, wheezes, rales, rhonchi, stridor Cardiovascular Exam: Present: regular rate, normal rhythm, normal heart sounds. Absent: systolic murmur, diastolic murmur, rubs, gallop, clicks GI/Abdominal exam: Present: soft, normal bowel sounds, other (Cachexia). Absent: distended, tenderness, guarding, rebound, rigid Neurological exam: Present: CN II-XII intact. Absent: alert (Drowsy), oriented X3 (1) Psychiatric exam: Present: normal affect, normal mood Skin exam: Present: warm, dry, intact, normal color. Absent: rash Course Vital Signs 06/09/21 21:30 Temperature 97.3 F L Pulse Rate 109 H Respiratory 18 Rate Blood Pressure 101/78 O2 Sat by Pulse 99 Oximetry Medical Decision Making - Medical Decision Making 60-year-old male patient presents to the emergency department today for evaluation of altered mental status and hallucinations as well as progressive weakness. Physical examination did reveal a thin appearing adult male, pale skin. He is drowsy but does respond to questions. Labs reviewed showed low hemoglobin 7.7, mild hyponatremia, no evidence for UTI. Chest xray showed new area of infiltrate and evidence for rib destruction which is new compared to old exam. Patient was unable to keep down his oral antibiotic at home, he was being treated for pneumonia. Family members also reported that he was breathing very slowly last night and throughout the day...states 5-10 second between breaths, I believe there is some concern for too much pain medication. He has lost weight recently. He did become more alert as time went on in the ED. He will be admitted and treated for pneumonia. CT brain pending. He is agreeable with this plan. My attending is Dr. Salazar. - Lab Data Result diagrams: 06/09/21 22:32 06/09/21 22:32 Lab Results 06/09/21 06/09/21 06/09/21 Range/Units 22:32 22:32 22:32 WBC 12.5 H (3.8-10.6) k/uL RBC 2.44 L (4.30-5.90) m/uL Hgb 7.7 L (13.0-17.5) gm/dL Hct 24.0 L (39.0-53.0) % MCV 98.5 (80.0-100.0) fL MCH 31.6 (25.0-35.0) pg MCHC 32.1 (31.0-37.0) g/dL RDW 19.8 H (11.5-15.5) % Plt Count 374 (150-450) k/uL MPV 9.0 Neutrophils % 78 % Lymphocytes % 12 % Monocytes % 8 % Eosinophils % 0 % Basophils % 0 % Neutrophils # 9.7 H (1.3-7.7) k/uL Lymphocytes # 1.5 (1.0-4.8) k/uL Monocytes # 1.0 (0-1.0) k/uL Eosinophils # 0.0 (0-0.7) k/uL Basophils # 0.0 (0-0.2) k/uL Hypochromasia Moderate Poikilocytosis Marked Anisocytosis Slight Macrocytosis Slight PT (9.0-12.0) sec INR (<1.2) APTT (22.0-30.0) sec Sodium 134 L (137-145) mmol/L Potassium 5.1 (3.5-5.1) mmol/L Chloride 113 H (98-107) mmol/L Carbon Dioxide 10 L (22-30) mmol/L Anion Gap 11 mmol/L BUN 11 (9-20) mg/dL Creatinine 0.78 (0.66-1.25) mg/dL Est GFR (CKD-EPI)AfAm >90 (>60 ml/min/1.73 sqM) Est GFR (CKD-EPI)NonAf >90 (>60 ml/min/1.73 sqM) Glucose 81 (74-99) mg/dL Calcium 9.7 (8.4-10.2) mg/dL Total Bilirubin 0.7 (0.2-1.3) mg/dL AST 26 (17-59) U/L ALT 9 (4-49) U/L Alkaline Phosphatase 213 H (38-126) U/L Troponin I <0.012 (0.000-0.034) ng/mL Total Protein 5.9 L (6.3-8.2) g/dL Albumin 2.8 L (3.5-5.0) g/dL Urine Color Urine Appearance (Clear) Urine pH (5.0-8.0) Ur Specific [place] (1.001-1.035) Urine Protein (Negative) Urine Glucose (UA) (Negative) Urine Ketones (Negative) Urine Blood (Negative) Urine Nitrite (Negative) Urine Bilirubin (Negative) Urine Urobilinogen (<2.0) mg/dL Ur Leukocyte Esterase (Negative) Urine RBC (0-5) /hpf Urine WBC (0-5) /hpf Urine Bacteria (None) /hpf Hyaline Casts (0-2) /lpf Urine Mucus (None) /hpf 06/09/21 06/10/21 Range/Units 23:42 00:45 WBC (3.8-10.6) k/uL RBC (4.30-5.90) m/uL Hgb (13.0-17.5) gm/dL Hct (39.0-53.0) % MCV (80.0-100.0) fL MCH (25.0-35.0) pg MCHC (31.0-37.0) g/dL RDW (11.5-15.5) % Plt Count (150-450) k/uL MPV Neutrophils % % Lymphocytes % % Monocytes % % Eosinophils % % Basophils % % Neutrophils # (1.3-7.7) k/uL Lymphocytes # (1.0-4.8) k/uL Monocytes # (0-1.0) k/uL Eosinophils # (0-0.7) k/uL Basophils # (0-0.2) k/uL Hypochromasia Poikilocytosis Anisocytosis Macrocytosis PT 13.5 H (9.0-12.0) sec INR 1.3 H (<1.2) APTT 23.0 (22.0-30.0) sec Sodium (137-145) mmol/L Potassium (3.5-5.1) mmol/L Chloride (98-107) mmol/L Carbon Dioxide (22-30) mmol/L Anion Gap mmol/L BUN (9-20) mg/dL Creatinine (0.66-1.25) mg/dL Est GFR (CKD-EPI)AfAm (>60 ml/min/1.73 sqM) Est GFR (CKD-EPI)NonAf (>60 ml/min/1.73 sqM) Glucose (74-99) mg/dL Calcium (8.4-10.2) mg/dL Total Bilirubin (0.2-1.3) mg/dL AST (17-59) U/L ALT (4-49) U/L Alkaline Phosphatase (38-126) U/L Troponin I (0.000-0.034) ng/mL Total Protein (6.3-8.2) g/dL Albumin (3.5-5.0) g/dL Urine Color Yellow Urine Appearance Clear (Clear) Urine pH 6.5 (5.0-8.0) Ur Specific [place] 1.012 (1.001-1.035) Urine Protein 1+ H (Negative) Urine Glucose (UA) Negative (Negative) Urine Ketones Negative (Negative) Urine Blood Trace H (Negative) Urine Nitrite Negative (Negative) Urine Bilirubin Negative (Negative) Urine Urobilinogen <2.0 (<2.0) mg/dL Ur Leukocyte Esterase Negative (Negative) Urine RBC 10 H (0-5) /hpf Urine WBC 2 (0-5) /hpf Urine Bacteria Rare H (None) /hpf Hyaline Casts 9 H (0-2) /lpf Urine Mucus Rare H (None) /hpf - EKG Data -: EKG Interpreted by Me EKG Comments: EKG obtained at 2331 shows sinus tachycardia at a ventricular rate of 108, IN i nterval 1:30, QRS duration 74, QT 332, QTc 444. No evidence of ST elevation or depression - Radiology Data Radiology results: report reviewed, image reviewed View x-ray of the chest is obtained. Report was reviewed in its entirety. Impression by Dr. Paniagua shows COPD. Destruction pleural thickening consistent with metastatic disease in this patient with a history of lung cancer. Instructed changes are new compared to last exam. There is possible ne w minimal interstitial infiltrate right midlung compared to last exam. Disposition Clinical Impression: Pneumonia, Altered mental status Disposition: ADMITTED IP TO THIS HOSP Condition: Serious Referrals: Nilesh Lee MD [Primary Care Provider] - 1-2 days Decision to Admit Reason: Admit from EC Decision Date: 06/10/21 Decision Time: 01:57
--- NOTE | 2021-06-09 23:15 | XR ---
EXAMINATION TYPE: XR chest 2V DATE OF EXAM: 06/09/2021 COMPARISON: 05/04/2021 HISTORY: Altered mental status. TECHNIQUE: FINDINGS: There is no heart failure nor confluent pneumonic infiltrate. There is a question of some m ild interstitial infiltrate in the right midlung field that is a change compared to old exam. Costoph renic angles are clear. There is pulmonary hyperinflation. There are chest leads. There is some destr uctive change involving the lateral right fourth rib. There is some focal pleural thickening. IMPRESSION: COPD. Rib destruction and pleural thickening consistent with metastatic disease in this p atient with a history of lung cancer. Destructive changes are new compared to last exam. There is pos sible new minimal interstitial infiltrate right midlung compared to last exam.
[2021-06-09 23:39] LABS: ALT 9 U/L (4-49); AST 26 U/L (17-59); African American GFR (CKD) >90 (>60 ml/min/1.73 sqM); Albumin 2.8 g/dL (3.5-5.0); Alkaline Phosphatase 213 U/L (38-126); Anion Gap 11 mmol/L; Blood Urea Nitrogen 11 mg/dL (9-20); Calcium 9.7 mg/dL (8.4-10.2); Carbon Dioxide 10 mmol/L (22-30); Chloride 113 mmol/L (98-107); Glucose 81 mg/dL (74-99); Non-African American GFR(CKD) >90 (>60 ml/min/1.73 sqM); Potassium 5.1 mmol/L (3.5-5.1); Sodium 134 mmol/L (137-145); Total Bilirubin 0.7 mg/dL (0.2-1.3); Total Protein 5.9 g/dL (6.3-8.2)
[2021-06-10 00:05] LABS: Anisocytosis Slight; Basophils % (A) 0 %; Eosinophils % (A) 0 %; HGB 7.7 gm/dL (13.0-17.5); Hypochromasia Moderate; Lymphocytes # (A) 1.5 k/uL (1.0-4.8); Lymphocytes % (A) 12 %; MCH 31.6 pg (25.0-35.0); MCHC 32.1 g/dL (31.0-37.0); MCV 98.5 fL (80.0-100.0); Macrocytosis Slight; Monocytes % (A) 8 %; Neutrophils # (A) 9.7 k/uL (1.3-7.7); Neutrophils % (A) 78 %; Platelet Count 374 k/uL (150-450); Poikilocytosis Marked; RBC 2.44 m/uL (4.30-5.90); RDW 19.8 % (11.5-15.5); WBC 12.5 k/uL (3.8-10.6)
[2021-06-10 00:21] LABS: INR 1.3 (<1.2); Prothrombin Time 13.5 sec (9.0-12.0)
[2021-06-10 01:20] LABS: Appearance,Urine Clear (Clear); Bacteria,Urine Rare /hpf; Bilirubin,Urine Negative (Negative); Blood,Urine Trace (Negative); Color,Urine Yellow; Glucose,Urine (UA) Negative (Negative); Hyaline Casts,Urine 9 /lpf (0-2); Ketones,Urine Negative (Negative); Leukocyte Esterase,Urine Negative (Negative); Mucus,Urine Rare /hpf; Nitrite,Urine Negative (Negative); PH, Urine 6.5 (5.0-8.0); Protein,Urine 1+ (Negative); RBC,Urine 10 /hpf (0-5); Specific Gravity,Urine 1.012 (1.001-1.035); Urobilinogen,Urine <2.0 mg/dL (<2.0); WBC,Urine 2 /hpf (0-5)
[2021-06-10] MEDS ORDERED: PIPERACILLIN-TAZOBACTAM 3.375 GM in SODIUM CHLORIDE 0.9% 100 ML IVPB ONE (01:30)
[2021-06-10] MEDS ORDERED: HYDROmorphone 0.5 MG/0.5 ML SYRINGE IVP PRN (01:51)
[2021-06-10] MEDS ORDERED: ONDANSETRON 4 MG/2 ML VIAL IVP PRN (01:51)
[2021-06-10] MEDS ORDERED: NALOXONE 0.4 MG/ML 1 ML VIAL IV PRN (01:51)
--- NOTE | 2021-06-10 02:22 | CT ---
EXAMINATION TYPE: CT brain wo con DATE OF EXAM: 06/10/2021 COMPARISON: None HISTORY: AMS. hx: of lung CA with mets CT DLP: 1076.4 mGycm Automated exposure control for dose reduction was used. Ventricles have normal size. There is no mass effect nor midline shift. There is no sign of intracran ial hemorrhage. I see no evidence of cerebral edema. Calvarium is intact. Skull base is intact. There is very little pneumatization of the mastoid sinuses. IMPRESSION: Negative CT scan of the brain. Bilateral mastoiditis.
[2021-06-10] MEDS: HYDROcodone/APAP 5-325MG 1 EACH TAB PO PRN ×2 (02:29→07:58)
[2021-06-10] MEDS: SODIUM CHLORIDE 0.9% 1,000 ML IV SCH ×2 (02:34→12:23)
[2021-06-10] MEDS ORDERED: VANCOMYCIN IV PER PHARMACY 1 EACH MISC MISCELLANE PRN (05:03)
[2021-06-10] MEDS ORDERED: IBUPROFEN 800 MG TAB PO PRN (05:04)
[2021-06-10] MEDS ORDERED: ALPRAZolam 0.5 MG TAB PO PRN (05:04)
[2021-06-10] MEDS ORDERED: BENZONATATE 100 MG CAP PO PRN (05:04)
--- NOTE | 2021-06-10 05:13 | P.HPIM ---
History of Present Illness H&P Date: 06/10/21 Chief Complaint: Progressive weakness and tiredness with episodes of apnea 60-year-old male with a static lung cancer on chemo and radiotherapy Patient comes in today with his for evaluation for progressive generalized weakness and tiredness along with episodes of apnea. Patient has been in and out of the hospital recently with his lung cancer and recurrent episodes of pneumonia he is currently still taking some antibiotics at home for pneumonia with not much improvement patient was brought in as he was increasingly weak and tired since he left the hospital recently as he had multiple admissions to hospitals over the past couple months Patient continues to have decline in his overall health with decreased appetite decreased level of energy he currently reports worsening cough without hemoptysis, denies any chest pain but reports difficulty breathing sometimes when he is trying to do something he is growing increasingly weak he denies any fevers or chills but she is failing very sick per the he was hallucinating today along with decreased by mouth intake Patient denies any changes in his medications he reports new pain meds dialysis ordered recently but he hasn't yet started. He does report some chest pain in his left lower ribs , he denies any GI bleeding denies any nausea vomiting denies any abdominal pain In the ED chest x-ray showed distractive rib lesions possible metastatic lung cancer along with new right midlung infiltrate Blood work showed stable anemia with hemoglobin 7.7 Leukocytosis 12.[address] no acute pathology Review of Systems Pertinent positives as noted in HPI. All other systems were reviewed and are negative Past Medical History Past Medical History: Cancer, COPD, Hypertension Additional Past Medical History / Comment(s): degenerative arthritis, alcoholism History of Any Multi-Drug Resistant Organisms: None Reported Past Surgical History: Ear Surgery Past Anesthesia/Blood Transfusion Reactions: No Reported Reaction Past Psychological History: Anxiety Smoking Status: Current every day smoker Past Alcohol Use History: Occasional Past Drug Use History: None Reported - Past Family History Family Additional Family Medical History / Comment(s): Pancreatic cancer runs in the family Medications and Allergies Home Medications Medication Instructions Recorded Confirmed Type Gabapentin 600 mg PO TID 03/13/17 06/09/21 History ALPRAZolam [Xanax] 0.5 mg PO TID PRN 02/20/21 06/09/21 History Benzonatate [Tessalon Perles] 100 mg PO TID PRN #90 cap 02/22/21 06/09/21 Rx Folic Acid 1 mg PO DAILY 05/01/21 06/09/21 History Ibuprofen [Motrin] 800 mg PO Q8H PRN 05/01/21 06/09/21 History Megestrol [Megace] 800 mg PO DAILY 05/01/21 06/09/21 History Ondansetron [Zofran] 4 mg PO Q8HR PRN 05/01/21 06/09/21 History Albuterol Nebulized [Ventolin 2.5 mg INHALATION RT-Q6H PRN 06/09/21 06/09/21 History Nebulized] Amoxicillin/Potassium Clav 1 tab PO BID 06/09/21 06/09/21 History [Augmentin 875-125 Tablet] Cyanocobalamin (Vitamin B-12) 1,000 mcg PO DAILY 06/09/21 06/09/21 History [Vitamin B-12] Potassium Chloride ER [K-Dur 10] 10 meq PO DAILY 06/09/21 06/09/21 History oxyCODONE HCL [oxyCODONE HCL (IR)] 20 mg PO Q4H 06/09/21 06/09/21 History Allergies Allergy/AdvReac Type Severity Reaction Status Date / Time No Known Allergies Allergy Verified 06/09/21 23:20 Physical Exam Vitals: Vital Signs Temp Pulse Resp BP Pulse Ox 06/09/21 21:30 97.3 F L 109 H 18 101/78 99 Intake and Output 06/09/21 06/09/21 06/10/21 14:59 22:59 06:59 Other: Weight 46.266 kg Constitutional: No acute distress, cachectic Eyes: Anicteric sclerae, moist conjunctiva, Pupils equal round reactive to light ENMT: NC/AT Oropharynx clear, no erythema, or exudates Neck: Supple, no masses, or JVD No carotid bruits No thyromegaly Lungs: Good breath sounds bilaterally no wheezing rales or rhonchi Clear to percussion Normal respiratory effort, no accessory muscle use Cardiovascular: Heart regular in rate and rhythm, No murmurs, gallops, or rubs No peripheral edema Abdominal: Soft Nontender, no guarding, rebound or rigidity Abdomen moving with respiration Normoactive bowel sounds No hepatomegaly, No splenomegaly No palpable mass No abdominal wall hernia noted Skin: Normal temperature, tone, texture, turgor No induration No subcutaneous nodules No rash, lesions No ulcers Extremities: No digital cyanosis No clubbing Pedal pulses intact and symmetrical Radial pulses intact and symmetrical No calf tenderness Psychiatric: Alert and oriented to person, place and time Appropriate affect fair judgement Neuro Muscles Strength 4/5 in all 4 extremities Sensation to light touch grossly present throughout Cranial nerves II-XII grossly intact Lymphatics: no palpable cervical or supraclavicular , or inguinal lymph nodes Results CBC & Chem 7: 06/09/21 22:32 06/09/21 22:32 Labs: Abnormal Lab Results - Last 24 Hours (Table) 06/09/21 06/09/21 06/09/21 Range/Units 22:32 22:32 23:42 WBC 12.5 H (3.8-10.6) k/uL RBC 2.44 L (4.30-5.90) m/uL Hgb 7.7 L (13.0-17.5) gm/dL Hct 24.0 L (39.0-53.0) % RDW 19.8 H (11.5-15.5) % Neutrophils # 9.7 H (1.3-7.7) k/uL PT 13.5 H (9.0-12.0) sec INR 1.3 H (<1.2) Sodium 134 L (137-145) mmol/L Chloride 113 H (98-107) mmol/L Carbon Dioxide 10 L (22-30) mmol/L Alkaline Phosphatase 213 H (38-126) U/L Total Protein 5.9 L (6.3-8.2) g/dL Albumin 2.8 L (3.5-5.0) g/dL Urine Protein (Negative) Urine Blood (Negative) Urine RBC (0-5) /hpf Urine Bacteria (None) /hpf Hyaline Casts (0-2) /lpf Urine Mucus (None) /hpf 06/10/21 Range/Units 00:45 WBC (3.8-10.6) k/uL RBC (4.30-5.90) m/uL Hgb (13.0-17.5) gm/dL Hct (39.0-53.0) % RDW (11.5-15.5) % Neutrophils # (1.3-7.7) k/uL PT (9.0-12.0) sec INR (<1.2) Sodium (137-145) mmol/L Chloride (98-107) mmol/L Carbon Dioxide (22-30) mmol/L Alkaline Phosphatase (38-126) U/L Total Protein (6.3-8.2) g/dL Albumin (3.5-5.0) g/dL Urine Protein 1+ H (Negative) Urine Blood Trace H (Negative) Urine RBC 10 H (0-5) /hpf Urine Bacteria Rare H (None) /hpf Hyaline Casts 9 H (0-2) /lpf Urine Mucus Rare H (None) /hpf Assessment and Plan Assessment: Sepsis with recurrent pneumonia Follow-up cultures Patient had multiple antibiotics recently currently on Augmentin at home Due to episodes of apnea and altered mental status there is a suspicion of aspiration pneumonia for this patient will be started empirically on Zosyn and Vanco Monitor vital signs Follow-up labs Supportive care Supplemental oxygen as needed Chronic conditions Metastatic lung cancer on chemoradiotherapy Continue outpatient follow-up Chronic anemia secondary to above patient denies any active bleeding History of COPD, history of hypertension, history of alcohol abuse DVT prophylaxis Lovenox Patient is no code Anticipated length of stay more than 2 midnights
--- NOTE | 2021-06-10 05:19 | P.HPADDEND ---
H&P Addendum H&P Addendum Date: 06/10/21 Advanced Care Planning Active diagnoses: Recurrent pneumonia Metastatic lung cancer to the bone Background: The patient was admitted for treatment of recurrent pneumonia, altered mental status Discussion: Person(s) present and participating in discussion: The patient, and myself Summary: The patient does not want CPR or Intubation. he would allow for BIPAP if he needed it. Agreed for treatment with IV fluids, antibiotics, steroids, and nebs. he agrees to all care that would maximize comfort. In the event that he was not able to make his own medical decisions he has elected his to make decisions. patient is hoping in curing his cancer and would like to continue to follow up with oncology and receive treatment for his cancer, however, in the event of cardiopulmonary arrest he does not want any CPR or life sustaining machines like ventilators. Time spent: Total time spent face to face in education and discussion directly related to advanced care plannin minutes
[2021-06-10] MEDS ORDERED: VANCOMYCIN 1,000 MG in SODIUM CHLORIDE 0.9% 250 ML IVPB ONE (06:30)
[2021-06-10] MEDS: FOLIC ACID 1 MG TAB PO SCH (08:01)
[2021-06-10] MEDS: ENOXAPARIN 40 MG/0.4 ML SYRINGE SQ SCH (08:01)
[2021-06-10] MEDS: GABAPENTIN 300 MG CAP PO SCH ×3 (11:16→20:14)
[2021-06-10] MEDS: MEGESTROL 400 MG/10 ML CUP PO SCH (11:16)
[2021-06-10] MEDS: PIPERACILLIN-TAZOBACTAM 3.375 GM in SODIUM CHLORIDE 0.9% 100 ML IVPB SCH ×2 (12:23→19:28)
--- NOTE | 2021-06-10 13:50 | P.PN ---
Progress Note - Text Progress Note Date: 06/10/21 I saw and evaluated the patient independently this morning and I agree with the documented assessment and plan by my colleague earlier this morning. Ongoing IV antibiotics, PT consultation pending.
[2021-06-10] MEDS ORDERED: VANCOMYCIN 750 MG in SODIUM CHLORIDE 0.9% 250 ML IVPB SCH (23:00)
[2021-06-11] MEDS: PIPERACILLIN-TAZOBACTAM 3.375 GM in SODIUM CHLORIDE 0.9% 100 ML IVPB SCH ×3 (03:34→20:45)
[2021-06-11 05:45] LABS: Anisocytosis Moderate; Basophils % (A) 0 %; Eosinophils % (A) 0 %; HCT 20.7 % (39.0-53.0); Hypochromasia Moderate; Lymphocytes # (A) 1.1 k/uL (1.0-4.8); Lymphocytes % (A) 11 %; MCH 31.5 pg (25.0-35.0); MCHC 32.2 g/dL (31.0-37.0); MCV 97.8 fL (80.0-100.0); Macrocytosis Slight; Mean Platelet Volume 7.7; Monocytes # (A) 0.8 k/uL (0-1.0); Monocytes % (A) 8 %; Neutrophils # (A) 7.7 k/uL (1.3-7.7); Neutrophils % (A) 78 %; Platelet Count 347 k/uL (150-450); Poikilocytosis Moderate; RBC 2.12 m/uL (4.30-5.90); RDW 20.9 % (11.5-15.5)
[2021-06-11 05:58] LABS: HGB 6.7 gm/dL (13.0-17.5)
[2021-06-11] MEDS: MEGESTROL 400 MG/10 ML CUP PO SCH (08:42)
[2021-06-11] MEDS: FOLIC ACID 1 MG TAB PO SCH (08:42)
[2021-06-11] MEDS: GABAPENTIN 300 MG CAP PO SCH ×3 (08:42→20:45)
[2021-06-11] MEDS: ENOXAPARIN 40 MG/0.4 ML SYRINGE SQ SCH (08:42)
[2021-06-11] MEDS: SODIUM CHLORIDE 0.9% 1,000 ML IV SCH ×2 (08:43→17:56)
[2021-06-11 10:07] VITALS: BMI 15.5
[2021-06-11 11:03] LABS: Magnesium 1.7 mg/dL (1.5-2.4)
[2021-06-11 11:25] LABS: African American GFR (CKD) 135.6 (60.0-200.0); Anion Gap 14.7 mmol/L (10.00-18.00); BUN/Creat Ratio 12.2 Ratio (12.00-20.00); Blood Urea Nitrogen 6.1 mg/dL (9.0-27.0); Calcium 8.9 mg/dL (8.7-10.3); Carbon Dioxide 7.3 mmol/L (20.0-27.5)
--- NOTE | 2021-06-11 12:04 | P.PN ---
Subjective Progress Note Date: 06/11/21 Patient is minimally interactive with me on interview, is awake and alert. Per nursing, he requested to go home, however, he is severely acidotic on labs today. Objective - Vital Signs Vital signs: Vital Signs Temp 97.1 F L 06/11/21 10:56 Pulse 100 06/11/21 10:56 Resp 16 06/11/21 10:56 BP 126/76 06/11/21 10:56 Pulse Ox 98 06/11/21 10:56 Intake & Output 06/10/21 06/11/21 06/11/21 18:59 06:59 18:59 Intake Total 120 250 0 Balance 120 250 0 Weight 46.266 kg Intake: Oral 120 250 Blood Product 0 Rc Irr As1 Unit 0 [id number] Other: # Voids 2 - Exam Gen: awake, alert HEENT: normocephalic, atraumatic, good hearing acuity, moist mucous membranes Resp: good air exchange, breathing comfortably with no accessory muscle use CVS: good distal perfusion x 4, GI: soft, NTTP, ND : no SPT, no CVAT, carlin catheter not present MSK: no pitting edema, no clubbing Neuro: non-focal, moving all extremities Psych: cooperative, euthymic mood - Labs CBC & Chem 7: 06/11/21 05:06 06/11/21 05:06 Labs: Abnormal Lab Results - Last 24 Hours (Table) 06/11/21 06/11/21 06/11/21 Range/Units 05:06 05:06 06:41 RBC 2.12 L (4.30-5.90) m/uL Hgb 6.7 L* (13.0-17.5) gm/dL Hct 20.7 L (39.0-53.0) % RDW 20.9 H (11.5-15.5) % Chloride 113 H (96-109) mmol/L Carbon Dioxide 7.3 L* (20.0-27.5) mmol/L BUN 6.1 L (9.0-27.0) mg/dL Creatinine 0.5 L (0.6-1.5) mg/dL Crossmatch See Detail Assessment and Plan Assessment: Sepsis with recurrent pneumonia Follow-up cultures Patient had multiple antibiotics recently currently on Augmentin at home Due to episodes of apnea and altered mental status there is a suspicion of aspiration pneumonia for this patient will be started empirically on Zosyn and Vanco Monitor vital signs Follow-up labs Supportive care Supplemental oxygen as needed Non-anion gap metabolic acidosis Bicarb gtt started Chronic conditions Metastatic lung cancer on chemoradiotherapy Continue outpatient follow-up Chronic anemia secondary to above patient denies any active bleeding History of COPD, history of hypertension, history of alcohol abuse DVT prophylaxis Lovenox Patient is no code Anticipated length of stay more than 2 midnights
[2021-06-11] MEDS: DEXTROSE 5% IN WATER 1,000 ML with SODIUM BICARB (1 MEQ/ML) 150 ML IV SCH (12:12)
[2021-06-11] MEDS: VANCOMYCIN 750 MG in SODIUM CHLORIDE 0.9% 250 ML IVPB SCH (14:30)
[2021-06-11] MEDS: ALBUTEROL NEBULIZED 2.5 MG/3 ML INHALATION PRN (16:10)
--- NOTE | 2021-06-11 17:37 | CDI ---
Documentation Clarification Form Date: 06/11/2021 04:43:34 PM From: Sofia Posadas RN CCDS Admit Date: 06/10/2021 01:32:00 AM Patient Name: Nader Meek Visit Number: [id number] Discharge Date: ATTENTION: The Clinical Documentation Specialists (CDI) and [facility] Coding Staff appreciate your assistance in clarifying documentation. Please respond to the clarification below the line at the bottom and electronically sign. The CDI & [facility] Coding staff will review the response and follow-up if needed. Please note: Queries are made part of the Legal Health Record. If you have any questions, please contact the author of this message via ITS. Dr. Gabriella Flores The patient is described as emaciated In Registered Dietitian assessment on 06/11. Based on this information and the findings below, is there an additional diagnosis that is clinically appropriate for this patient? History/Risk Factors: 60-year-old male presents to the ED with progressive weakness, tiredness and episodes of apnea. Medical History: Lung cancer, recurrent pneumonia, COPD and HTN. 06/10, H&P. Clinical Indicators: RD Consult Assessment: 06/11 Appetite: Poor, Duration of 3-6 months. Diet Hx: prior to admission Regular diet. Nutrition support: pt dislikes Ensure Nutrition Assessment: Intake poor; percent consumed 0-25%, Appetite poor; Nutrition Related Medications Antiemetic, additional meds Megace and folic acid Current BMI: 15.5 Weight 46.266kg; Height 5ft 8in; BMI Classification Underweight. Calculated [place] body weight 70kg; Weight loss 12.7kg Weight change Decreased Intake and Catabolic Illness. Estimated Nutritional Needs in Kcals weight used [place] Body Weight; Energy formula 25-30 Kcals/kg Energy needs [id number]. Estimated Protein Needs weight used [place] Body Weight Estimated Fluid Formula 1ml/Kcal Estimated Fluid Needs 1750mls 2100 mls a day Nutritional Diagnosis: Inadequate oral intake: Related to poor appetite evidenced by 0-25% meal intake. Nutrition Diagnosis: Clinical Underweight; related to unintended weight loss, evidenced by BMI 15.5 kg/m2 . Treatment: Dietary Consult: see above Supplements: Magic cups BID Kcal / Serving 290 Kcal; Protein / Serving 9 gram, chocolate milk with meals. Monitor: PO, Intake of high protein snack. Is there an additional diagnosis that is clinically appropriate for this patient? [ x ] Severe Protein-Calorie Malnutrition [ ] Other condition, please specify [ ] Unable to Determine (Template Last Revised: September 2020) MTDD
--- NOTE | 2021-06-11 17:39 | CDI ---
Documentation Clarification Form Date: 06/11/2021 05:16:54 PM From: Sofia Posadas RN CCDS Admit Date: 06/10/2021 01:32:00 AM Patient Name: Nader Meek Visit Number: [id number] Discharge Date: ATTENTION: The Clinical Documentation Specialists (CDI) and [facility] Coding Staff appreciate your assistance in clarifying documentation. Please respond to the clarification below the line at the bottom and electronically sign. The CDI & [facility] Coding staff will review the response and follow-up if needed. Please note: Queries are made part of the Legal Health Record. If you have any questions, please contact the author of this message via ITS. Dr. Gabriella Flores Your patient has the documented symptom of Altered Mental Status 06/10, H&P. Additional clarification regarding the etiology/cause of this symptom is requested. History/Risk Factors: 60-year-old male presents to the ED with progressive weakness, tiredness and episodes of apnea. Medical History: Lung cancer, recurrent pneumonia, COPD and HTN. 06/10, H&P. Clinical Indicators: ED Note 06/09: Evaluation of altered mental status and hallucinations. Labs 06/09: Wbc 12.5, Hgb 7,7, Neutrophils 9.7 CXR 06/09: Possible new minimal interstitial infiltrate right midlung compared to old exam. CT Brain 06/10: Negative for acute process. Treatment: 06/10 Vancomycin 1,000mg IVPB x 1; 06/10 D/C 06/11 Vancomycin 750mg IVPB Q16HR, 06/11 to current Vancomycin 750mg IVPB Q8HR. 06/10 Zosyn 3.375gm IVPB x1, 06/10 to current Zosyn 3.375mg IVPB Q8H, 06/10 Ceftriaxone Sodium 1gm IVPB x1. Please clarify the etiology of the symptom of Altered Mental Status: [ x ] Metabolic Encephalopathy due to Sepsis, Aspiration pneumonia [ ] Metabolic Encephalopathy due to (please specify) [ ] Other condition (please specify) [ ] Unable to determine (Template Last Revised: August 2020) MTDD
[2021-06-12] MEDS: VANCOMYCIN 750 MG in SODIUM CHLORIDE 0.9% 250 ML IVPB SCH ×4 (00:14→22:41)
[2021-06-12] MEDS: DEXTROSE 5% IN WATER 1,000 ML with SODIUM BICARB (1 MEQ/ML) 150 ML IV SCH ×2 (02:20→14:17)
[2021-06-12] MEDS: PIPERACILLIN-TAZOBACTAM 3.375 GM in SODIUM CHLORIDE 0.9% 100 ML IVPB SCH ×3 (05:17→21:33)
[2021-06-12 06:52] LABS: Anisocytosis Moderate; Basophils % (A) 0 %; Eosinophils % (A) 0 %; HCT 25.4 % (39.0-53.0); Hypochromasia Moderate; Lymphocytes % (A) 11 %; MCH 31.9 pg (25.0-35.0); MCHC 32.5 g/dL (31.0-37.0); MCV 98.2 fL (80.0-100.0); Macrocytosis Slight; Monocytes # (A) 0.6 k/uL (0-1.0); Monocytes % (A) 6 %; Neutrophils # (A) 7.3 k/uL (1.3-7.7); Neutrophils % (A) 79 %; Platelet Count 355 k/uL (150-450); Poikilocytosis Marked; RBC 2.59 m/uL (4.30-5.90); RDW 20.3 % (11.5-15.5); WBC 9.2 k/uL (3.8-10.6)
[2021-06-12 06:57] LABS: HGB 8.3 gm/dL (13.0-17.5)
[2021-06-12] MEDS: ALBUTEROL NEBULIZED 2.5 MG/3 ML INHALATION PRN (07:35)
[2021-06-12 09:31] LABS: Magnesium 1.5 mg/dL (1.5-2.4)
[2021-06-12 09:34] LABS: African American GFR (CKD) 135.6 (60.0-200.0); Anion Gap 11.2 mmol/L (10.00-18.00); BUN/Creat Ratio 8.8 Ratio (12.00-20.00); Blood Urea Nitrogen 4.4 mg/dL (9.0-27.0); Calcium 9.2 mg/dL (8.7-10.3); Carbon Dioxide 15.8 mmol/L (20.0-27.5); Potassium 3.2 mmol/L (3.5-5.5)
[2021-06-12] MEDS: SODIUM CHLORIDE 0.9% 1,000 ML IV SCH (09:50)
[2021-06-12] MEDS: MEGESTROL 400 MG/10 ML CUP PO SCH (10:16)
[2021-06-12] MEDS: GABAPENTIN 300 MG CAP PO SCH ×3 (10:17→22:49)
[2021-06-12] MEDS: FOLIC ACID 1 MG TAB PO SCH (10:19)
[2021-06-12] MEDS: ENOXAPARIN 40 MG/0.4 ML SYRINGE SQ SCH (10:51)
[2021-06-12 12:53] LABS: African American GFR (CKD) >90 (>60 ml/min/1.73 sqM); Anion Gap 3 mmol/L; Blood Urea Nitrogen 3 mg/dL (9-20); Calcium 9.3 mg/dL (8.4-10.2); Carbon Dioxide 19 mmol/L (22-30); Chloride 113 mmol/L (98-107); Glucose 101 mg/dL (74-99); Non-African American GFR(CKD) >90 (>60 ml/min/1.73 sqM); Sodium 135 mmol/L (137-145)
[2021-06-12] MEDS ORDERED: VANCOMYCIN TROUGH DUE 1 EACH MISC MISCELLANE ONE (13:00)
[2021-06-12] MEDS ORDERED: POTASSIUM CHLORIDE ER 20 MEQ TAB.ER PO STA (14:56)
--- NOTE | 2021-06-12 14:58 | P.PN ---
Subjective Progress Note Date: 06/12/21 No new complaints today. Pt feels significantly improved. BMP shows improving acidosis, but still with several metabolic derangement.s Objective - Vital Signs Vital signs: Vital Signs Temp 97.6 F 06/12/21 14:10 Pulse 118 H 06/12/21 14:10 Resp 18 06/12/21 14:10 BP 122/82 06/12/21 14:10 Pulse Ox 100 06/12/21 14:10 Intake & Output 06/11/21 06/12/21 06/12/21 18:59 06:59 18:59 Intake Total 1460 400 Output Total 500 Balance 960 400 Weight 46.266 kg Intake: Intake, IV Titration 950 Amount Piperacillin-Tazobactam 3 100 .375 gm In Sodium Chloride 0.9% 100 ml @ 25 mls/hr IVPB Q8H [facility] Rx#: [id number] Sodium Chloride 0.9% 1, 600 000 ml @ 75 mls/hr IV . [id number] [facility] Rx#:[id number] Vancomycin 750 mg In 250 Sodium Chloride 0.9% 250 ml @ 125 mls/hr IVPB Q16H [facility] Rx#:[id number] Oral 200 400 Blood Product 310 Rc Irr As1 Unit 310 [id number] Output: Urine 500 Other: Voiding Method Urinal Urinal # Voids 2 - Exam Gen: awake, alert HEENT: normocephalic, atraumatic, good hearing acuity, moist mucous membranes Resp: good air exchange, breathing comfortably with no accessory muscle use CVS: good distal perfusion x 4, GI: soft, NTTP, ND : no SPT, no CVAT, carlin catheter not present MSK: no pitting edema, no clubbing Neuro: non-focal, moving all extremities Psych: cooperative, euthymic mood - Labs CBC & Chem 7: 06/12/21 05:50 06/12/21 12:28 Labs: Abnormal Lab Results - Last 24 Hours (Table) 06/12/21 06/12/21 06/12/21 Range/Units 05:50 05:50 12:28 RBC 2.59 L (4.30-5.90) m/uL Hgb 8.3 L D (13.0-17.5) gm/dL Hct 25.4 L (39.0-53.0) % RDW 20.3 H (11.5-15.5) % Sodium 135 L (137-145) mmol/L Potassium 3.2 L 3.0 L (3.5-5.5) mmol/L Chloride 110 H 113 H (96-109) mmol/L Carbon Dioxide 15.8 L 19 L (20.0-27.5) mmol/L BUN 4.4 L 3 L (9.0-27.0) mg/dL Creatinine 0.5 L 0.46 L (0.6-1.5) mg/dL BUN/Creatinine Ratio 8.80 L (12.00-20.00) Ratio Glucose 126 H 101 H (70-110) mg/dL Assessment and Plan Assessment: Sepsis with recurrent pneumonia Follow-up cultures Patient had multiple antibiotics recently currently on Augmentin at home Due to episodes of apnea and altered mental status there is a suspicion of aspiration pneumonia for this patient will be started empirically on Zosyn and Vanco Monitor vital signs Follow-up labs Supportive care Supplemental oxygen as needed Non-anion gap metabolic acidosis Hypokalemia Hypomagnesemia Bicarb gtt started K, Mg replacement ordered today, repeat in the AM Chronic conditions Metastatic lung cancer on chemoradiotherapy Continue outpatient follow-up Chronic anemia secondary to above patient denies any active bleeding History of COPD, history of hypertension, history of alcohol abuse DVT prophylaxis Lovenox Patient is no code Anticipated length of stay more than 2 midnights
[2021-06-12] MEDS: POTASSIUM CHLORIDE 10 MEQ in WATER FOR INJECTION 1 100ML.BAG IVPB SCH ×3 (15:58→20:19)
[2021-06-12] MEDS: MAGNESIUM SULFATE-D5W PMX 1 GM in DEXTROSE/WATER 1 100ML.BAG IVPB SCH ×3 (17:32→22:44)
[2021-06-13] MEDS: POTASSIUM CHLORIDE 10 MEQ in WATER FOR INJECTION 1 100ML.BAG IVPB SCH (02:59)
[2021-06-13] MEDS: DEXTROSE 5% IN WATER 1,000 ML with SODIUM BICARB (1 MEQ/ML) 150 ML IV SCH ×2 (03:01→13:41)
[2021-06-13] MEDS: PIPERACILLIN-TAZOBACTAM 3.375 GM in SODIUM CHLORIDE 0.9% 100 ML IVPB SCH ×3 (05:58→20:23)
[2021-06-13] MEDS: VANCOMYCIN 750 MG in SODIUM CHLORIDE 0.9% 250 ML IVPB SCH ×3 (05:58→21:47)
[2021-06-13] MEDS: SODIUM CHLORIDE 0.9% 1,000 ML IV SCH (06:04)
[2021-06-13] MEDS: GABAPENTIN 300 MG CAP PO SCH ×3 (08:33→21:47)
[2021-06-13] MEDS: FOLIC ACID 1 MG TAB PO SCH (08:33)
[2021-06-13] MEDS: MEGESTROL 400 MG/10 ML CUP PO SCH (08:33)
[2021-06-13] MEDS: ENOXAPARIN 40 MG/0.4 ML SYRINGE SQ SCH (08:34)
[2021-06-13 08:46] LABS: Anisocytosis Moderate; Basophils % (A) 0 %; Eosinophils % (A) 0 %; Hypochromasia Moderate; Lymphocytes # (A) 1.5 k/uL (1.0-4.8); Lymphocytes % (A) 13 %; MCH 31.2 pg (25.0-35.0); MCHC 32.1 g/dL (31.0-37.0); MCV 97.3 fL (80.0-100.0); Macrocytosis Slight; Mean Platelet Volume 7.7; Monocytes # (A) 1.1 k/uL (0-1.0); Monocytes % (A) 9 %; Neutrophils # (A) 9.4 k/uL (1.3-7.7); Neutrophils % (A) 76 %; Platelet Count 321 k/uL (150-450); Poikilocytosis Moderate; RBC 2.57 m/uL (4.30-5.90); RDW 20.5 % (11.5-15.5); WBC 12.3 k/uL (3.8-10.6)
[2021-06-13 10:21] LABS: VBG PH 7.48 (7.31-7.41)
[2021-06-13 11:52] LABS: African American GFR (CKD) 148.6 (60.0-200.0); Anion Gap 10.9 mmol/L (10.00-18.00); BUN/Creat Ratio 7.25 Ratio (12.00-20.00); Blood Urea Nitrogen 2.9 mg/dL (9.0-27.0); Calcium 8.8 mg/dL (8.7-10.3); Carbon Dioxide 17.1 mmol/L (20.0-27.5); Magnesium 2.1 mg/dL (1.5-2.4); Non-African American GFR(CKD) 128.2 (60.0-200.0); Potassium 3.7 mmol/L (3.5-5.5)
[2021-06-13] MEDS: ALBUTEROL NEBULIZED 2.5 MG/3 ML INHALATION PRN (15:58)
--- NOTE | 2021-06-13 16:07 | P.PN ---
Subjective Progress Note Date: 06/13/21 Principal diagnosis: CC: weakness Patient stated that he still feels weak. I had a lengthy discussion with the patient regarding goals of care. Patient stated that he wants to continue with chemotherapy. He declined hospice. Patient states that his diarrhea has resolved. Daughter was at bedside. Per daughter plan is for patient to return home. Patient is AAO 3 and is answering questions appropriately. Objective - Vital Signs Vital signs: Vital Signs Temp 97.5 F L 06/13/21 12:39 Pulse 99 06/13/21 15:59 Resp 18 06/13/21 12:39 BP 116/73 06/13/21 12:39 Pulse Ox 99 06/13/21 12:39 Intake & Output 06/12/21 06/13/21 06/13/21 18:59 06:59 18:59 Intake Total 1650 900 Output Total 1500 2100 Balance 150 -1200 Intake: Intake, IV Titration 1650 900 Amount Dextrose 5% in Water 1, 1200 800 000 ml @ 100 mls/hr IV . [id number] [facility] with Sodium Bicarb (1 Meq/ml) 150 ml Rx#:[id number] Piperacillin-Tazobactam 3 100 100 .375 gm In Sodium Chloride 0.9% 100 ml @ 25 mls/hr IVPB Q8H [facility] Rx#: [id number] Potassium Chloride 10 meq 100 In Water For Injection 1 100ml.bag @ 100 mls/hr IVPB Q1HR [facility] Rx#: [id number] Vancomycin 750 mg In 250 Sodium Chloride 0.9% 250 ml @ 125 mls/hr IVPB Q8H [facility] Rx#:[id number] Output: Urine 1500 2100 Other: Voiding Method Urinal Urinal # Voids 2 - Exam General examination - Alert and Oriented 3 in NAD, patient appears chronically debilitated Heart - + S1S2 no murmurs Lungs -diminished breath sounds bilaterally Abdomen soft NT ND +ve BS 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 Psych - Calm and cooperative - Labs CBC & Chem 7: 06/13/21 08:14 06/13/21 08:14 Labs: Abnormal Lab Results - Last 24 Hours (Table) 06/13/21 06/13/21 06/13/21 Range/Units 08:14 08:14 09:58 WBC 12.3 H (3.8-10.6) k/uL RBC 2.57 L (4.30-5.90) m/uL Hgb 8.0 L (13.0-17.5) gm/dL Hct 25.0 L (39.0-53.0) % RDW 20.5 H (11.5-15.5) % Neutrophils # 9.4 H (1.3-7.7) k/uL Monocytes # 1.1 H (0-1.0) k/uL VBG pH (7.31-7.41) VBG pCO2 (37-51) mmHg VBG HCO3 (24-28) mmol/L Carbon Dioxide 17.1 L (20.0-27.5) mmol/L BUN 2.9 L (9.0-27.0) mg/dL Creatinine 0.4 L (0.6-1.5) mg/dL BUN/Creatinine Ratio 7.25 L (12.00-20.00) Ratio Plasma Lactic Acid Eulalio 3.4 H* (0.7-2.0) mmol/L 06/13/21 06/13/21 Range/Units 09:58 12:05 WBC (3.8-10.6) k/uL RBC (4.30-5.90) m/uL Hgb (13.0-17.5) gm/dL Hct (39.0-53.0) % RDW (11.5-15.5) % Neutrophils # (1.3-7.7) k/uL Monocytes # (0-1.0) k/uL VBG pH 7.48 H (7.31-7.41) VBG pCO2 25 L (37-51) mmHg VBG HCO3 18 L (24-28) mmol/L Carbon Dioxide (20.0-27.5) mmol/L BUN (9.0-27.0) mg/dL Creatinine (0.6-1.5) mg/dL BUN/Creatinine Ratio (12.00-20.00) Ratio Plasma Lactic Acid Eulalio 3.0 H* (0.7-2.0) mmol/L Assessment and Plan Assessment: #Sepsis with recurrent pneumonia CXR shows new infiltrate which could be pneumonia vs progression of lung cancer -> patient will need repeat imaging outpatient. Blood cultures are negative to date Sputum culture grew yeast so will start patient on diflucan Patient had multiple antibiotics recently currently on Augmentin at home patient will be started empirically on Zosyn and Vanco Monitor vital signs WBC is increasing Supportive care Supplemental oxygen as needed #Non-anion gap metabolic acidosis likely due to diarrhea due from chemotherapy -stop bicarb ggt and switch to sodium bicarbonate -VBG is consistent with metabolic acidosis compensated with respiratory alkalosis -consult nephrology -diarrhea has resolved. #Hypokalemia: replete as needed #Hypomagnesemia: replete as needed Chronic conditions #Metastatic lung cancer on chemoradiotherapy: patient at this time wants to continue with treatment and he declined hospice. Continue outpatient follow-up #Chronic anemia secondary to above patient denies any active bleeding #History of COPD, history of hypertension, history of alcohol abuse DVT prophylaxis Lovenox Patient is no code Anticipate patient will be ready for discharge in next 24-48hrs
[2021-06-13] MEDS: SODIUM BICARBONATE TAB 650 MG TAB PO SCH ×2 (16:08→21:47)
--- NOTE | 2021-06-13 17:28 | CONS ---
CONSULTATION REASON FOR CONSULT: Renal failure. HISTORY OF PRESENT ILLNESS: The patient is a 60-year-old male who was admitted to the hospital on 06/09/2021 with complaints of mental status changes, increased weakness. He has underlying metastatic lung cancer. Blood pressure has been low. The patient is currently voiding. Serum creatinine has been at 0.5-0.4 mg/dL. The patient was noted to be acidotic with CO2 at 15. His lactic acid is elevated at 3.4. The patient had severe metabolic acidosis with bicarb of 7.3 on initial admission. He is currently maintained on bicarb drip. No significant diarrhea reported according to the daughter. Patient was on Motrin at home. I do not see any other medications on his home med list that would cause the metabolic acidosis. I do see Augmentin on his medication list. I am not sure if this was recently associated with GI fluid loss. PAST MEDICAL HISTORY: Lung cancer, COPD, hypertension, osteoarthritis. SOCIAL HISTORY: Patient is a current daily smoker. MEDICATIONS: Medications at home prior to admission included: Gabapentin, Xanax, Motrin, Megace, Zofran, Augmentin, potassium, oxycodone. ALLERGIES: None. EXAMINATION: Patient is currently comfortable, awake. He is confused, not in any acute distress. Blood pressure 116/73, heart rate 114 per minute. He is afebrile. Examination of the HEART S1, S2. Examination of the LUNGS, decreased breath sounds at the bases. ABDOMEN is soft, nontender. Examination of lower EXTREMITIES shows no significant edema. ASSISTANCE REPRESENTATIVE exam shows patient is moving all 4 extremities. LAB: Show sodium 137, potassium 3.7, CO2 is 17, serum creatinine 0.4. Lactic acid was 3.4 today. ASSESSMENT: 1. Metabolic acidosis, mostly non gap with anion gap noted to be elevated at 14, second day post hospitalization. The patient's lactic acid is also elevated. I am not sure if it was higher on initial admission since this is the only reading that is available. It appears that the metabolic acidosis is possibly related to the lactic acidosis as well as possible component of diarrhea and GI fluid loss given the fact that he had been on Augmentin. Currently maintained on bicarb drip which I will continue. The patient is not on any metformin or any other medication to induce acidosis prior to admission as noted as per his medication list. 2. Hypokalemia, possibly associated with gastrointestinal fluid loss and decreased oral intake status post replacement, currently improved. 3. Anemia multifactorial. 4. Metastatic lung cancer. PLAN: Continue with the bicarb drip for now. Repeat labs in a.m. Repeat lactic acid in a.m. Monitor for GI fluid loss. MMODL / IJN: [id number] /
[2021-06-13] MEDS: HYDROcodone/APAP 5-325MG 1 EACH TAB PO PRN (19:58)
[2021-06-13] MEDS: FLUCONAZOLE 100 MG TAB PO SCH (20:24)
[2021-06-14] MEDS: HYDROcodone/APAP 5-325MG 1 EACH TAB PO PRN (04:06)
[2021-06-14] MEDS: PIPERACILLIN-TAZOBACTAM 3.375 GM in SODIUM CHLORIDE 0.9% 100 ML IVPB SCH ×2 (04:06→14:03)
[2021-06-14] MEDS: VANCOMYCIN 750 MG in SODIUM CHLORIDE 0.9% 250 ML IVPB SCH ×2 (05:29→17:26)
[2021-06-14 05:40] LABS: African American GFR (CKD) >90 (>60 ml/min/1.73 sqM); Non-African American GFR(CKD) >90 (>60 ml/min/1.73 sqM)
[2021-06-14 10:55] LABS: Anisocytosis Moderate; HCT 23.7 % (39.0-53.0); HGB 7.7 gm/dL (13.0-17.5); Hypochromasia Slight; MCH 31.5 pg (25.0-35.0); MCHC 32.6 g/dL (31.0-37.0); MCV 96.6 fL (80.0-100.0); Macrocytosis Moderate; Mean Platelet Volume 7.8; Platelet Count 326 k/uL (150-450); Poikilocytosis Moderate; RBC 2.45 m/uL (4.30-5.90); RDW 21.4 % (11.5-15.5); WBC 9.9 k/uL (3.8-10.6)
[2021-06-14] MEDS: GABAPENTIN 300 MG CAP PO SCH ×2 (10:55→17:32)
[2021-06-14] MEDS: ENOXAPARIN 40 MG/0.4 ML SYRINGE SQ SCH (10:55)
[2021-06-14] MEDS: MEGESTROL 400 MG/10 ML CUP PO SCH (10:55)
[2021-06-14] MEDS: SODIUM BICARBONATE TAB 650 MG TAB PO SCH ×2 (10:56→17:26)
[2021-06-14] MEDS: FOLIC ACID 1 MG TAB PO SCH (10:56)
[2021-06-14] MEDS: FLUCONAZOLE 100 MG TAB PO SCH (10:57)
[2021-06-14 11:08] LABS: African American GFR (CKD) >90 (>60 ml/min/1.73 sqM); Anion Gap 5 mmol/L; Blood Urea Nitrogen 4 mg/dL (9-20); Calcium 8.6 mg/dL (8.4-10.2); Carbon Dioxide 17 mmol/L (22-30); Chloride 111 mmol/L (98-107); Glucose 75 mg/dL (74-99); Non-African American GFR(CKD) >90 (>60 ml/min/1.73 sqM); Potassium 3.4 mmol/L (3.5-5.1); Sodium 133 mmol/L (137-145)
--- NOTE | 2021-06-14 12:25 | P.DS ---
Providers Date of admission: 06/10/21 01:32 Expected date of discharge: 06/14/21 Attending physician: Shin Martins MD Consults: 06/13/21 09:27 Consult Physician Routine Consulting Provider: Azucena Shoemaker Consult Reason/Comments: metabolic acidosis Do you want consulting provider notified?: Yes Primary care physician: Nilesh Lee MD Hospital Course: Discharge Diagnosis: #Sepsis with recurrent pneumonia #Non-anion gap metabolic acidosis likely due to diarrhea due from chemotherapy #Hypokalemia: #Hypomagnesemia: #Metastatic lung cancer on chemoradiotherapy: #Chronic anemia #History of COPD, history of hypertension, history of alcohol abuse Hospital Course: Patient is a 60-year-old male who was brought in by his for evaluation of progressive generalized weakness. Patient has been in and out of the hospital recently due to recurrent episodes of pneumonia. Patient does have a history of lung cancer with metastasis. He has been started on chemotherapy. Patient was found to have a new consolidation on his chest x-ray which could be pneumonia versus progression of his lung cancer. Patient was started on broad- spectrum antibiotics with vancomycin and Zosyn. At the time of discharge patient's leukocytosis had normalized and he was afebrile over 48 hours. His blood cultures were negative to date. Patient satting well on room air. Patient was deemed stable for discharge and was instructed to get a repeat chest x-ray in 6 weeks. Patient will be discharged on Augmentin and doxycycline to complete a 7 day antibiotic course. When patient was admitted he was also found to have metabolic acidosis. Likely etiology is diarrhea due to chemotherapy. Patient's diarrhea resolved during hospitalization. Patient's bicarb is also improving. He was started on bicarb drip that was transitioned to sodium bicarb. At the time of discharge I discussed with nephrology who said patient is stable for discharge on sodium bicarb 650 mg by mouth twice a day. Patient is looking forward to going home. Patient is requesting for pain medications. Patient oxycodone IR was recently prescribed. However he is now out of his Dilaudid. I refilled his Dilaudid for 3 days. I told patient that he needs to follow with his PCP for refills. During hospitalizations I had multiple discussions with the patient regarding goals of care. Several family members believe that hospice is appropriate for the patient. However patient himself wants to continue with chemotherapy even though he appears debilitated. Patient declined hospice at this time. Patient work with physical therapy who recommended subacute rehab versus home with home care. Family wants to take him home. 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 Patient Condition at Discharge: Poor Plan - Discharge Summary New Discharge Prescriptions: New Sodium Bicarbonate Tab 650 mg PO BID #60 tab Fluconazole [Diflucan] 100 mg PO DAILY #6 tab HYDROmorphone [Dilaudid] 8 mg PO Q8HR PRN 3 Days #12 tab PRN Reason: Pain Doxycycline [Vibramycin] 100 mg PO BID #6 capsule Continue Gabapentin 600 mg PO TID ALPRAZolam [Xanax] 0.5 mg PO TID PRN PRN Reason: Anxiety Benzonatate [Tessalon Perles] 100 mg PO TID PRN #90 cap PRN Reason: Cough Ondansetron [Zofran] 4 mg PO Q8HR PRN PRN Reason: Nausea Megestrol [Megace] 800 mg PO DAILY Ibuprofen [Motrin] 800 mg PO Q8H PRN PRN Reason: Pain Folic Acid 1 mg PO DAILY Potassium Chloride ER [K-Dur 10] 10 meq PO DAILY Cyanocobalamin (Vitamin B-12) [Vitamin B-12] 1,000 mcg PO DAILY oxyCODONE HCL [oxyCODONE HCL (IR)] 20 mg PO Q4H Albuterol Nebulized [Ventolin Nebulized] 2.5 mg INHALATION RT-Q6H PRN PRN Reason: Shortness Of Breath Amoxicillin/Potassium Clav [Augmentin 875-125 Tablet] 1 tab PO BID #6 tab Discharge Medication List Gabapentin 600 mg PO TID 03/13/17 [History] ALPRAZolam [Xanax] 0.5 mg PO TID PRN 02/20/21 [History] Benzonatate [Tessalon Perles] 100 mg PO TID PRN #90 cap 02/22/21 [Rx] Folic Acid 1 mg PO DAILY 05/01/21 [History] Ibuprofen [Motrin] 800 mg PO Q8H PRN 05/01/21 [History] Megestrol [Megace] 800 mg PO DAILY 05/01/21 [History] Ondansetron [Zofran] 4 mg PO Q8HR PRN 05/01/21 [History] Albuterol Nebulized [Ventolin Nebulized] 2.5 mg INHALATION RT-Q6H PRN 06/09/21 [History] Cyanocobalamin (Vitamin B-12) [Vitamin B-12] 1,000 mcg PO DAILY 06/09/21 [History] Potassium Chloride ER [K-Dur 10] 10 meq PO DAILY 06/09/21 [History] oxyCODONE HCL [oxyCODONE HCL (IR)] 20 mg PO Q4H 06/09/21 [History] Amoxicillin/Potassium Clav [Augmentin 875-125 Tablet] 1 tab PO BID #6 tab 06/14/21 [Rx] Doxycycline [Vibramycin] 100 mg PO BID #6 capsule 06/14/21 [Rx] Fluconazole [Diflucan] 100 mg PO DAILY #6 tab 06/14/21 [Rx] HYDROmorphone [Dilaudid] 8 mg PO Q8HR PRN 3 Days #12 tab 06/14/21 [Rx] Sodium Bicarbonate Tab 650 mg PO BID #60 tab 06/14/21 [Rx] Follow up Appointment(s)/Referral(s): Nilesh Lee MD [Primary Care Provider] - 1-2 days Discharge Disposition: HOME WITH HOME HEALTH SERVICES
[2021-06-14] MEDS ORDERED: POTASSIUM BICARBONATE/CIT AC 20 MEQ TABLET.EFF PO ONE (13:21)
[2021-06-14 13:32] VITALS: BP 99/68; RESP 18; TEMP 98.2
[2021-06-14] MEDS: ALBUTEROL NEBULIZED 2.5 MG/3 ML INHALATION PRN (14:31)
[2021-06-14 14:41] VITALS: PULSE 127
--- NOTE | 2021-06-14 15:48 | PN ---
PROGRESS NOTE Patient is seen for followup for metabolic acidosis. He has been maintained on a bicarb drip. CO2 today is 17. Patient was also started on oral sodium bicarb. He wants to go home today. On examination today, blood pressure 99/68, heart rate 60 per minute. EXAMINATION OF THE HEART: S1 and S2. EXAMINATION OF LUNGS: Decreased breath sounds at the bases. Abdomen is soft, non-tender. Examination of lower extremities shows no significant edema. Labs show sodium 133, potassium 3.4, chloride 111, CO2 17, BUN 4, creatinine 0.45, hemoglobin 7.7. ASSESSMENT: 1. Metabolic acidosis associated with gastrointestinal fluid loss, currently improved with sodium bicarb infusion. Continue with the oral sodium bicarb as well. Patient can be discharged and follow up as outpatient with repeat labs to be done in 2 to 3 days post discharge. There is definitely component of lactic acidosis as well with the metabolic acidosis. This has now improved with IV hydration. 2. Metastatic lung cancer. 3. Pneumonia versus progression of lung cancer. PLAN: Okay to discharge on oral sodium bicarb. Repeat labs as outpatient in 2 to 3 days post discharge. MMODL / IJN: [id number] /
[2021-06-15] MEDS ORDERED: VANCOMYCIN TROUGH DUE 1 EACH MISC MISCELLANE ONE (05:00)
== END 2021-06-14 18:02 | disposition home health service (06) | DRG 871 ==
LOC: EC 21:24 → 5NMEDONC 06-10 01:32
PROVIDERS: ADMIT Internal Medicine; ATTEND Internal Medicine
DX: A41.9 Sepsis, unspecified organism (principal); G93.41 Metabolic encephalopathy; J69.0 Pneumonitis due to inhalation of food and vomit; C34.90 Malignant neoplasm of unspecified part of unspecified bronchus or lung; C79.9 Secondary malignant neoplasm of unspecified site; E87.1 Hypo-osmolality and hyponatremia; Z20.822 Contact with and (suspected) exposure to COVID-19; E87.4 Mixed disorder of acid-base balance; J44.0 Chronic obstructive pulmonary disease with (acute) lower respiratory infection; K52.1 Toxic gastroenteritis and colitis; R44.3 Hallucinations, unspecified; D64.9 Anemia, unspecified; T45.1X5A Adverse effect of antineoplastic and immunosuppressive drugs, initial encounter; E83.42 Hypomagnesemia; E86.9 Volume depletion, unspecified; E87.6 Hypokalemia; F17.200 Nicotine dependence, unspecified, uncomplicated; F41.9 Anxiety disorder, unspecified; I10 Essential (primary) hypertension; Z80.0 Family history of malignant neoplasm of digestive organs; Z79.899 Other long term (current) drug therapy; Z92.3 Personal history of irradiation; Z87.01 Personal history of pneumonia (recurrent); F10.20 Alcohol dependence, uncomplicated; M19.90 Unspecified osteoarthritis, unspecified site; N19 Unspecified kidney failure
CPT/HCPCS: 36415; 70450; 71046; 80048; 80053; 80202; 81001; 82565; 82803; 83605; 83735; 84484; 85025; 85027; 85610; 85730; 86850; 86900; 86901; 86920; 87040; 87635; 93005; 94640; 94760; 96360; 99285